=== PATIENT | female | born 1960 | race Caucasian/White ===

== ENCOUNTER 2017-09-02 11:53 | Inpatient (IN) | payer MEDICARE, MEDICAID, SELFPAY ==
[2017-09-02 12:13] VITALS: BMI 34.0
[2017-09-02 12:14] VITALS: BP 124/86; PULSE 96; RESP 20; TEMP 36.4; O2SAT 95
[2017-09-02 12:42] LABS: Basophils % 0.2 % (0.1-2.0); Eosinophils # 0.2 K/mm3 (0.0-0.4); Eosinophils % 1.3 % (0.1-12.0); Hematocrit 45.2 % (37.0-47.0); Hemoglobin 14.7 g/dL (12.2-16.2); Lymphocytes # 3.3 K/mm3 (0.7-4.5); Mean Corpuscular HGB Conc 32.5 g/dL (31.8-35.4); Mean Corpuscular Hemoglobin 30.2 pg (27.0-31.2); Mean Corpuscular Volume 93.1 fl (81-99); Mean Platelet Volume 8.3 fl (7.4-10.4); Monocytes # 0.5 K/mm3 (0.1-1.0); Neutrophils # 9.2 K/mm3 (1.8-7.8); Neutrophils % 69.5 % (37.0-80.0); Platelet Count 273 K/mm3 (142-424); Red Blood Count 4.85 M/mm3 (4.20-5.40); Red Cell Distribution Width 13.5 % (11.5-17.5); White Blood Count 13.2 K/mm3 (4.8-10.8)
[2017-09-02 12:53] LABS: Anion Gap 12.4 mEq/L (5-15); Blood Urea Nitrogen 13 mg/dL (7-18); Carbon Dioxide 27 mmol/L (21.0-32.0); Chloride 103 mmol/L (98-107); Creatinine Clearance Estimated 114 mL/min (0-300); Creatinine,Serum 0.82 mg/dL (0.55-1.02); Estimated Glomerular Filt Rate 72 ml/min (>60); GFR (African American) 88 ML/MIN (>60); Glucose 185 mg/dL (74-106); Potassium 4.4 mmoL/L (3.5-5.1); Sodium 138 mmol/L (136-145)
--- NOTE | 2017-09-02 13:28 | HMH.PHACONS ---
- Pharmacy Consult Date: 09/02/17 Time: 13:28 Referring provider: DR. MAYORGA Reason for Consult:: VANCOMYCIN DOSING FOR FACIAL ABSCESS Allergies and ADEs:: Allergies Allergy/AdvReac Type Severity Reaction Status Date / Time shellfish derived Allergy Severe SWELLING Unverified 06/29/17 15:16 [From SHELLFISH (FOOD/DRUG)] azithromycin [From ZITHROMAX] Allergy Unknown Unverified 06/29/17 15:16 doxycycline [DOXYCYCLINE] Allergy Unknown Unverified 06/29/17 15:16 ibuprofen [From MOTRIN] Allergy Unknown Unverified 06/29/17 15:16 terbutaline [TERBUTALINE] Allergy Unknown Unverified 06/29/17 15:16 From SHELLFISH (FOOD/DRUG) Allergy Severe SWELLING Uncoded 06/29/17 15:16 Home Medications:: Home Medications Medication Instructions Recorded Confirmed Type Gabapentin [Gabapentin 300mg Cap] 300 mg PO TID 09/02/17 09/02/17 History Height: 1.65 m Weight: 92.76 kg Laboratory Results:: Laboratory Results - last 24 hr 09/02/17 12:26: WBC 13.2 H, RBC 4.85, Hgb 14.7, Hct 45.2, MCV 93.1, MCH 30.2, MCHC 32.5, RDW 13.5, Plt Count 273, MPV 8.3, Neut % (Auto) 69.5, Lymph % (Auto) 25.0, [place] % (Auto) 4.0, Eos % (Auto) 1.3, Baso % (Auto) 0.2, Neut # (Auto) 9.2 H, Lymph # (Auto) 3.3, [place] # (Auto) 0.5, Eos # (Auto) 0.2, Baso # (Auto) 0.0 09/02/17 12:26: Sodium 138, Potassium 4.4, Chloride 103, Carbon Dioxide 27, Anion Gap 12.4, BUN 13, Creatinine 0.82, Estimated Creat Clear 114, Estimated GFR 72, Est GFR ( Amer) 88, Glucose 185 H Medical History: Reports:: Diabetes Mellitus Type 2 Denies:: Cancer, Diabetes Mellitus Type 1, MRSA Assessment and Plan - Assessment and plan all Dx Assessment and Plan for all problems:: BASED ON PATIENT'S FACTORS, RECOMMEND STARTING WITH VANCOMYCIN 1500 MG Q12H AT THIS TIME. PHARMACY WILL FOLLOW DAILY AND ADJUST APPROPRIATE. MONIKA PADILLA, PHARMD
--- NOTE | 2017-09-02 13:31 | HMH.PHAVTE ---
[facility] Pharmacy VTE Monitoring - Patient Demographics Admission date: 09/02/17 Report Date: 09/02/17 Time: 13:31 Allergies/Adverse Reactions: Patient Allergies shellfish derived [From SHELLFISH (FOOD/DRUG)] Allergy (Severe, Unverified 06/29/17 15:16) SWELLING azithromycin [From ZITHROMAX] Allergy (Unknown, Unverified 06/29/17 15:16) doxycycline [DOXYCYCLINE] Allergy (Unknown, Unverified 06/29/17 15:16) ibuprofen [From MOTRIN] Allergy (Unknown, Unverified 06/29/17 15:16) terbutaline [TERBUTALINE] Allergy (Unknown, Unverified 06/29/17 15:16) From SHELLFISH (FOOD/DRUG) Allergy (Severe, Uncoded 06/29/17 15:16) SWELLING Height: 1.65 m Weight: 92.76 kg - VTE Risk Labs: VTE Related Lab Results Hgb 14.7 g/dL (12.2-16.2) 09/02/17 12:26 Hct 45.2 % (37.0-47.0) 09/02/17 12:26 Plt Count 273 K/mm3 (142-424) 09/02/17 12:26 BUN 13 mg/dL (7-18) 09/02/17 12:26 Creatinine 0.82 mg/dL (0.55-1.02) 09/02/17 12:26 Estimated Creat Clear 114 mL/min (0-300) 09/02/17 12:26 Was VTE Risk Assessment Performed: Yes VTE Score: 4 VTE Risk Level: Low Risk - Prophylaxis VTE Prophylaxis Ordered?: Yes Types of VTE Prophylaxis: TEDS Knee High Location of Applied Device: Bilateral Lower Extremeties - VTE Diagnosis Confirmed Treatment or plan recommended: Continue Current Treatment
--- NOTE | 2017-09-02 13:33 | P.CONPHA_ITS ---
- Pharmacy Consult Date: 09/02/17 Time: 13:28 Referring provider: DR. MAYORGA Reason for Consult:: VANCOMYCIN DOSING FOR FACIAL ABSCESS Allergies and ADEs:: Allergies Allergy/AdvReac Type Severity Reaction Status Date / Time shellfish derived Allergy Severe SWELLING Unverified 06/29/17 15:16 [From SHELLFISH (FOOD/DRUG)] azithromycin [From ZITHROMAX] Allergy Unknown Unverified 06/29/17 15:16 doxycycline [DOXYCYCLINE] Allergy Unknown Unverified 06/29/17 15:16 ibuprofen [From MOTRIN] Allergy Unknown Unverified 06/29/17 15:16 terbutaline [TERBUTALINE] Allergy Unknown Unverified 06/29/17 15:16 From SHELLFISH (FOOD/DRUG) Allergy Severe SWELLING Uncoded 06/29/17 15:16 Home Medications:: Home Medications Medication Instructions Recorded Confirmed Type Gabapentin [Gabapentin 300mg Cap] 300 mg PO TID 09/02/17 09/02/17 History Height: 1.65 m Weight: 92.76 kg Laboratory Results:: Laboratory Results - last 24 hr 09/02/17 12:26: WBC 13.2 H, RBC 4.85, Hgb 14.7, Hct 45.2, MCV 93.1, MCH 30.2, MCHC 32.5, RDW 13.5, Plt Count 273, MPV 8.3, Neut % (Auto) 69.5, Lymph % (Auto) 25.0, [place] % (Auto) 4.0, Eos % (Auto) 1.3, Baso % (Auto) 0.2, Neut # (Auto) 9.2 H, Lymph # (Auto) 3.3, [place] # (Auto) 0.5, Eos # (Auto) 0.2, Baso # (Auto) 0.0 09/02/17 12:26: Sodium 138, Potassium 4.4, Chloride 103, Carbon Dioxide 27, Anion Gap 12.4, BUN 13, Creatinine 0.82, Estimated Creat Clear 114, Estimated GFR 72, Est GFR ( Amer) 88, Glucose 185 H Medical History: Reports:: Diabetes Mellitus Type 2 Denies:: Cancer, Diabetes Mellitus Type 1, MRSA Assessment and Plan - Assessment and plan all Dx Assessment and Plan for all problems:: BASED ON PATIENT'S FACTORS, RECOMMEND STARTING WITH VANCOMYCIN 1500 MG Q12H AT THIS TIME. PHARMACY WILL FOLLOW DAILY AND ADJUST APPROPRIATE. MONIKA PADILLA, PHARMD
--- NOTE | 2017-09-02 13:35 | CT_ITS ---
CT facial bones w con CLINICAL INDICATION: Facial cellulitis, evaluate for orbital abscess ITS.REASON: FACIAL ABCESS . ORBITAL ABCESS ORDERING PHYSICIAN: Matthew Ramesh MD PATIENT AGE: 56 years COMPARISON: Unenhanced neck CT of 02/08/2016 TECHNIQUE:Axial, sagittal, and coronal images are generated and reviewed with 75 mL's of Isovue-370 contrast FINDINGS: There is subcutaneous soft tissue swelling involving the right periorbital region with mild stranding of the fat inferiorly, laterally, and in the infraorbital area. No intraconal inflammation or abscess is evident. The globe and extraocular muscles and optic nerve have an unremarkable appearance. No facial abscess apparent. There is mild mucosal thickening of the ethmoid sinuses. No fracture or sinus air-fluid levels evident. There is a 15 mm retention cyst in the left maxillary sinus. Scattered small lymph nodes are present in the neck. No dominant adenopathy. No evidence of osteomyelitis. Incidental note is made of a mildly prominent draining vein in the right frontal area draining from the cortex to the intraventricular region between the lateral ventricles consistent with a venous angioma versus a small AVM. IMPRESSION: 1. Right periorbital cellulitis. No evidence of abscess. No evidence of orbital abscess. 2. Mildly prominent draining vein in the right frontal area suggesting an incidental venous angioma or small AVM
--- NOTE | 2017-09-02 14:47 | HMH.GSCON ---
*Admission Date: 09/02/17 *Chief complaint: facial abscess *History of present illness: facial abscess/cellulitis that started approx 1 week corner of right emily-orbital area Review of Systems - ENT Reports other Comments: abscess/cellulitis right periorbital area [facility] History Medical History: Reports:: Diabetes Mellitus Type 2 Denies:: Cancer, Diabetes Mellitus Type 1, MRSA Other Medical History: Reports: Arthritis, Hoarseness Laterality Cases: Right: ACL Repair, Bilateral: Tonsillectomy, Total Knee Replacement Other Surgeries: Yes: Hysterectomy-Total Amputation: No Fractures: No - *Social History Smoking Status: Current every day smoker Tobacco Type: cigarettes # Packs/Day (cigarettes): 1 Alcohol Intake: never Occupational Status: disabled Housing: house Household Members: children - Psychiatric History Expresses thoughts of harming self/others: None Suicide Plan Description: No Plan *Family Hx:: Anemia, Asthma, Bleeding Disorder, Cancer, Coronary Artery Disease, Diabetes, Hypertension, Kidney Disease, Stroke Meds Home Medications Medication Instructions Recorded Confirmed Type Aspirin [Aspir 81] 81 mg PO DAILY 09/02/17 09/02/17 History Citalopram Hydrobromide [Celexa] 20 mg PO DAILY 09/02/17 09/02/17 History Gabapentin [Gabapentin 300mg Cap] 300 mg PO TID 09/02/17 09/02/17 History Gabapentin [Gabapentin 300mg Cap] 300 mg PO TID 09/02/17 09/02/17 History Hydrocodone Bit/Homatrop Me-Br 1 each PO Q6 09/02/17 09/02/17 History [Hydrocodone-Homatropine 5-1.5] Insulin Degludec [Tresiba 86 unit SQ DAILY 09/02/17 09/02/17 History Flextouch U-100] Metformin HCl [Metformin 500mg 1,000 mg PO BID 09/02/17 09/02/17 History Tablet] Metoclopramide HCl [Metoclopramide 5 mg PO TID 09/02/17 09/02/17 History 10mg Tablet] Montelukast Sodium [Montelukast 10 mg PO HS 09/02/17 09/02/17 History 10mg Tab] Montelukast Sodium [Montelukast 10 mg PO HS 09/02/17 09/02/17 History 10mg Tab] Sulfamethoxazole/Trimethoprim 1 each PO BID 09/02/17 09/02/17 History [Bactrim DS tablet] Tiotropium [place] [Spiriva 18 mcg INHALATION DAILY 09/02/17 09/02/17 History 18mcg/puff inhaler] Trimethoprim 100 mg PO BID 09/02/17 History Allergies Allergy/AdvReac Type Severity Reaction Status Date / Time shellfish derived Allergy Severe SWELLING Unverified 06/29/17 15:16 [From SHELLFISH (FOOD/DRUG)] azithromycin [From ZITHROMAX] Allergy Unknown Unverified 06/29/17 15:16 doxycycline [DOXYCYCLINE] Allergy Unknown Unverified 06/29/17 15:16 ibuprofen [From MOTRIN] Allergy Unknown Unverified 06/29/17 15:16 terbutaline [TERBUTALINE] Allergy Unknown Unverified 06/29/17 15:16 From SHELLFISH (FOOD/DRUG) Allergy Severe SWELLING Uncoded 06/29/17 15:16 Exam Vital signs and Labs for Last 24 Hours: Temp Pulse Resp BP Pulse Ox 97.6 F 96 H 20 124/86 95 09/02/17 12:14 09/02/17 12:14 09/02/17 12:14 09/02/17 12:14 09/02/17 12:14 Laboratory Results - last 24 hr 09/02/17 12:26: WBC 13.2 H, RBC 4.85, Hgb 14.7, Hct 45.2, MCV 93.1, MCH 30.2, MCHC 32.5, RDW 13.5, Plt Count 273, MPV 8.3, Neut % (Auto) 69.5, Lymph % (Auto) 25.0, [place] % (Auto) 4.0, Eos % (Auto) 1.3, Baso % (Auto) 0.2, Neut # (Auto) 9.2 H, Lymph # (Auto) 3.3, [place] # (Auto) 0.5, Eos # (Auto) 0.2, Baso # (Auto) 0.0 09/02/17 12:26: Sodium 138, Potassium 4.4, Chloride 103, Carbon Dioxide 27, Anion Gap 12.4, BUN 13, Creatinine 0.82, Estimated Creat Clear 114, Estimated GFR 72, Est GFR ( Amer) 88, Glucose 185 H I & O for Last 24 hours: Intake & Output 08/30/17 08/31/17 09/01/17 09/02/17 23:59 23:59 23:59 23:59 Weight 204 lb 8.013 oz - *Routine HEENT Exam Eye: Present: periorbital swelling, periorbital tenderness Comments: This patient had a 1 week history of swelling in the lateral right periorbital region. She had been applying Epsom salts compresses to it but it was worsening and when I examined her on September 02, 2017 the area of
--- NOTE | 2017-09-02 14:50 | P.CONS_ITS ---
*Admission Date: 09/02/17 *Chief complaint: facial abscess *History of present illness: facial abscess/cellulitis that started approx 1 week corner of right emily- orbital area Review of Systems - ENT Reports other Comments: abscess/cellulitis right periorbital area [facility] History Medical History: Reports:: Diabetes Mellitus Type 2 Denies:: Cancer, Diabetes Mellitus Type 1, MRSA Other Medical History: Reports: Arthritis, Hoarseness Laterality Cases: Right: ACL Repair, Bilateral: Tonsillectomy, Total Knee Replacement Other Surgeries: Yes: Hysterectomy-Total Amputation: No Fractures: No - *Social History Smoking Status: Current every day smoker Tobacco Type: cigarettes # Packs/Day (cigarettes): 1 Alcohol Intake: never Occupational Status: disabled Housing: house Household Members: children - Psychiatric History Expresses thoughts of harming self/others: None Suicide Plan Description: No Plan *Family Hx:: Anemia, Asthma, Bleeding Disorder, Cancer, Coronary Artery Disease , Diabetes, Hypertension, Kidney Disease, Stroke Meds Home Medications Medication Instructions Recorded Confirmed Type Aspirin [Aspir 81] 81 mg PO DAILY 09/02/17 09/02/17 History Citalopram Hydrobromide [Celexa] 20 mg PO DAILY 09/02/17 09/02/17 History Gabapentin [Gabapentin 300mg Cap] 300 mg PO TID 09/02/17 09/02/17 History Gabapentin [Gabapentin 300mg Cap] 300 mg PO TID 09/02/17 09/02/17 History Hydrocodone Bit/Homatrop Me-Br 1 each PO Q6 09/02/17 09/02/17 History [Hydrocodone-Homatropine 5-1.5] Insulin Degludec [Tresiba 86 unit SQ DAILY 09/02/17 09/02/17 History Flextouch U-100] Metformin HCl [Metformin 500mg 1,000 mg PO BID 09/02/17 09/02/17 History Tablet] Metoclopramide HCl [Metoclopramide 5 mg PO TID 09/02/17 09/02/17 History 10mg Tablet] Montelukast Sodium [Montelukast 10 mg PO HS 09/02/17 09/02/17 History 10mg Tab] Montelukast Sodium [Montelukast 10 mg PO HS 09/02/17 09/02/17 History 10mg Tab] Sulfamethoxazole/Trimethoprim 1 each PO BID 09/02/17 09/02/17 History [Bactrim DS tablet] Tiotropium [place] [Spiriva 18 mcg INHALATION DAILY 09/02/17 09/02/17 History 18mcg/puff inhaler] Trimethoprim 100 mg PO BID 09/02/17 History Allergies Allergy/AdvReac Type Severity Reaction Status Date / Time shellfish derived Allergy Severe SWELLING Unverified 06/29/17 15:16 [From SHELLFISH (FOOD/DRUG)] azithromycin [From ZITHROMAX] Allergy Unknown Unverified 06/29/17 15:16 doxycycline [DOXYCYCLINE] Allergy Unknown Unverified 06/29/17 15:16 ibuprofen [From MOTRIN] Allergy Unknown Unverified 06/29/17 15:16 terbutaline [TERBUTALINE] Allergy Unknown Unverified 06/29/17 15:16 From SHELLFISH (FOOD/DRUG) Allergy Severe SWELLING Uncoded 06/29/17 15:16 Exam Vital signs and Labs for Last 24 Hours: Temp Pulse Resp BP Pulse Ox 97.6 F 96 H 20 124/86 95 09/02/17 12:14 09/02/17 12:14 09/02/17 12:14 09/02/17 12:14 09/02/17 12:14 Laboratory Results - last 24 hr 09/02/17 12:26: WBC 13.2 H, RBC 4.85, Hgb 14.7, Hct 45.2, MCV 93.1, MCH 30.2, MCHC 32.5, RDW 13.5, Plt Count 273, MPV 8.3, Neut % (Auto) 69.5, Lymph % (Auto) 25.0, [place] % (Auto) 4.0, Eos % (Auto) 1.3, Baso % (Auto) 0.2, Neut # (Auto) 9.2 H, Lymph # (Auto) 3.3, [place] # (Auto) 0.5, Eos # (Auto) 0.2, Baso # (Auto) 0.0 09/02/17 12:26: Sodium 138, Potassium
--- NOTE | 2017-09-02 16:36 | HMH.HP ---
*Admission Date: 09/02/17 *Chief complaint: Pain and swelling around right eye *History of present illness: 56-year-old female with controlled diabetes mellitus presented to the office for the second time this week for evaluation of a right periorbital abscess and cellulitis. Patient was initially seen on Wednesday of this week and had a small less than 1 cm abscess lateral to the right orbit with significant swelling of the upper and lower eyelid and erythema with tenderness. Patient was placed on antibiotics (Bactrim DS) and advised to use warm compresses. Patient followed up today as instructed and the abscess had grown, more than doubling in size with increased erythema. Swelling of the eyelids had improved compared to 72 hours prior but due to the increasing size of the abscess decision was made to admit the patient for IV antibiotics and surgical consultation. Since admission CT scan of the face has occurred which revealed the changes consistent with cellulitis in the abscess but no orbital cellulitis or abscess. [facility] History Medical History: Reports:: Anxiety, Chronic Obstructive Pulmonary Disease (COPD), Diabetes Mellitus Type 2 Denies:: Cancer, Diabetes Mellitus Type 1, MRSA Other Medical History: Reports: Arthritis, Hoarseness Laterality Cases: Right: ACL Repair, Bilateral: Tonsillectomy, Total Knee Replacement Other Surgeries: Yes: Hysterectomy-Total Amputation: No Fractures: No - *Social History Smoking Status: Current every day smoker Tobacco Type: cigarettes # Packs/Day (cigarettes): 1 Alcohol Intake: never Occupational Status: disabled Housing: house Household Members: children - Psychiatric History Expresses thoughts of harming self/others: None Suicide Plan Description: No Plan *Family Hx:: Anemia, Asthma, Bleeding Disorder, Cancer, Coronary Artery Disease, Diabetes, Hypertension, Kidney Disease, Stroke Review of Systems - Review of Systems Review of systems:: pertinent systems reviewed and negative unless documented below - Constitutional Denies body ache(s), Denies chills, Denies fever(s) - Eyes Denies blind spots, Denies change in vision, Denies double vision Meds Home Medications Medication Instructions Recorded Confirmed Type Aspirin [Aspir 81] 81 mg PO DAILY 09/02/17 09/02/17 History Citalopram Hydrobromide [Celexa] 20 mg PO DAILY 09/02/17 09/02/17 History Gabapentin [Gabapentin 300mg Cap] 300 mg PO TID 09/02/17 09/02/17 History Gabapentin [Gabapentin 300mg Cap] 300 mg PO TID 09/02/17 09/02/17 History Hydrocodone Bit/Homatrop Me-Br 1 each PO Q6 09/02/17 09/02/17 History [Hydrocodone-Homatropine 5-1.5] Insulin Degludec [Tresiba 86 unit SQ DAILY 09/02/17 09/02/17 History Flextouch U-100] Metformin HCl [Metformin 500mg 1,000 mg PO BID 09/02/17 09/02/17 History Tablet] Metoclopramide HCl [Metoclopramide 5 mg PO TID 09/02/17 09/02/17 History 10mg Tablet] Montelukast Sodium [Montelukast 10 mg PO HS 09/02/17 09/02/17 History 10mg Tab] Montelukast Sodium [Montelukast 10 mg PO HS 09/02/17 09/02/17 History 10mg Tab] Sulfamethoxazole/Trimethoprim 1 each PO BID 09/02/17 09/02/17 History [Bactrim DS tablet] Tiotropium [place] [Spiriva 18 mcg INHALATION DAILY 09/02/17 09/02/17 History 18mcg/puff inhaler] Trimethoprim 100 mg PO BID 09/02/17 History Allergies Allergy/AdvReac Type Severity Reaction Status Date / Time shellfish derived Allergy Severe SWELLING Unverified 06/29/17 15:16 [From SHELLFISH (FOOD/DRUG)] azithromycin [From ZITHROMAX] Allergy Unknown Unverified 06/29/17 15:16 doxycycline [DOXYCYCLINE] Allergy Unknown Unverified 06/29/17 15:16 ibuprofen [From MOTRIN] Allergy Unknown Unverified 06/29/17 15:16 terbutaline [TERBUTALINE] Allergy Unknown Unverified 06/29/17 15:16 From SHELLFISH (FOOD/DRUG) Allergy Severe SWELLING Uncoded 06/29/17 15:16 Exam Vital signs and Labs for Last 24 Hours: Temp Pulse Resp BP Pulse Ox 97.6 F 96 H 20 124/86 95
--- NOTE | 2017-09-02 16:39 | P.HP_ITS ---
*Admission Date: 09/02/17 *Chief complaint: Pain and swelling around right eye *History of present illness: 56-year-old female with controlled diabetes mellitus presented to the office for the second time this week for evaluation of a right periorbital abscess and cellulitis. Patient was initially seen on Wednesday of this week and had a small less than 1 cm abscess lateral to the right orbit with significant swelling of the upper and lower eyelid and erythema with tenderness. Patient was placed on antibiotics (Bactrim DS) and advised to use warm compresses. Patient followed up today as instructed and the abscess had grown, more than doubling in size with increased erythema. Swelling of the eyelids had improved compared to 72 hours prior but due to the increasing size of the abscess decision was made to admit the patient for IV antibiotics and surgical consultation. Since admission CT scan of the face has occurred which revealed the changes consistent with cellulitis in the abscess but no orbital cellulitis or abscess. [facility] History Medical History: Reports:: Anxiety, Chronic Obstructive Pulmonary Disease (COPD) , Diabetes Mellitus Type 2 Denies:: Cancer, Diabetes Mellitus Type 1, MRSA Other Medical History: Reports: Arthritis, Hoarseness Laterality Cases: Right: ACL Repair, Bilateral: Tonsillectomy, Total Knee Replacement Other Surgeries: Yes: Hysterectomy-Total Amputation: No Fractures: No - *Social History Smoking Status: Current every day smoker Tobacco Type: cigarettes # Packs/Day (cigarettes): 1 Alcohol Intake: never Occupational Status: disabled Housing: house Household Members: children - Psychiatric History Expresses thoughts of harming self/others: None Suicide Plan Description: No Plan *Family Hx:: Anemia, Asthma, Bleeding Disorder, Cancer, Coronary Artery Disease , Diabetes, Hypertension, Kidney Disease, Stroke Review of Systems - Review of Systems Review of systems:: pertinent systems reviewed and negative unless documented below - Constitutional Denies body ache(s), Denies chills, Denies fever(s) - Eyes Denies blind spots, Denies change in vision, Denies double vision Meds Home Medications Medication Instructions Recorded Confirmed Type Aspirin [Aspir 81] 81 mg PO DAILY 09/02/17 09/02/17 History Citalopram Hydrobromide [Celexa] 20 mg PO DAILY 09/02/17 09/02/17 History Gabapentin [Gabapentin 300mg Cap] 300 mg PO TID 09/02/17 09/02/17 History Gabapentin [Gabapentin 300mg Cap] 300 mg PO TID 09/02/17 09/02/17 History Hydrocodone Bit/Homatrop Me-Br 1 each PO Q6 09/02/17 09/02/17 History [Hydrocodone-Homatropine 5-1.5] Insulin Degludec [Tresiba 86 unit SQ DAILY 09/02/17 09/02/17 History Flextouch U-100] Metformin HCl [Metformin 500mg 1,000 mg PO BID 09/02/17 09/02/17 History Tablet] Metoclopramide HCl [Metoclopramide 5 mg PO TID 09/02/17 09/02/17 History 10mg Tablet] Montelukast Sodium [Montelukast 10 mg PO HS 09/02/17 09/02/17 History 10mg Tab] Montelukast Sodium [Montelukast 10 mg PO HS 09/02/17 09/02/17 History 10mg Tab] Sulfamethoxazole/Trimethoprim 1 each PO BID 09/02/17 09/02/17 History [Bactrim DS tablet] Tiotropium [place] [Spiriva 18 mcg INHALATION DAILY 09/02/17 09/02/17 History 18mcg/puff inhaler] Trimethoprim 100 mg PO BID 09/02/17 History Allergies Allergy/AdvReac Type Severity Reaction Status Date / Time shellfish derived Allergy Severe SWELLING Unverified 06/29/17 15:16
[2017-09-02 16:44] LABS: POC Glucose,Bedside 82 mg/dL (70-110)
--- NOTE | 2017-09-02 17:11 | PC.NURSE ---
PATIENT WAS ADMITTED TODAY FOR AN ABCESS TO THE RIGHT SIDE OF HER FACE AT THE OUTER CORNER OF HER RIGHT EYE. IT IS RED AND SWOLLEN AND PATIENT STATES VERY PAINFUL ( PAIN MEDS GIVEN). PATIENT HAD A CONSULT WITH , HE ORDERED WARM EPSON SALT COMPRESSES TID. PATIENT IS TO BE NPO AFTER MIDNIGHT FOR POSSIBLE SURGERY IN THE MORNING. VITAL SIGNS ARE STABLE, LUNG SOUNDS ARE CLEAR. PATIENT DENIES ANY NEEDS, NO DISTRESS NOTED, WILL CONTINUE TO MONITOR.
--- NOTE | 2017-09-02 19:10 | PC.NURSE ---
PT FULL CODE, REPORT FROM JET
[2017-09-02 20:00] VITALS: BP 105/43; PULSE 71; RESP 20; TEMP 36.7; O2SAT 99
[2017-09-02 21:15] VITALS: RESP 20; O2SAT 95
[2017-09-03] VITALS (22 sets, daily range): BP systolic 126–158; BP diastolic 42–84; PULSE 65–96; RESP 12–20; TEMP 36.1–36.8; O2SAT 92–99; BMI 34.0
--- NOTE | 2017-09-03 00:48 | PC.NURSE ---
PT SLEEPING INTERVALS. NPO FOR PROBABLE SURGERY TODAY. IV SECURE, SALINE LOCKED. NO C/O PAIN OR DISCOMFORT. PT STABLE. WILL CONTINUE TO MONITOR. REPORT TO ONCOMING NURSE.
[2017-09-03 06:21] LABS: POC Glucose,Bedside 88 mg/dL (70-110)
--- NOTE | 2017-09-03 07:05 | HMH.ACPN2 ---
Internal Medicine - PN: Subj *Date: 09/03/17 *Time: 07:05 Interval history: Patient is without complaints this morning. She did fairly well overnight. She continues to have some right-sided periorbital discomfort. Exam Vital signs and Labs for Last 24 Hours: Temp Pulse Resp BP Pulse Ox 97.9 F 69 18 128/71 96 09/03/17 03:33 09/03/17 03:33 09/03/17 03:33 09/03/17 03:33 09/03/17 03:33 Laboratory Results - last 24 hr 09/02/17 12:26: WBC 13.2 H, RBC 4.85, Hgb 14.7, Hct 45.2, MCV 93.1, MCH 30.2, MCHC 32.5, RDW 13.5, Plt Count 273, MPV 8.3, Neut % (Auto) 69.5, Lymph % (Auto) 25.0, [place] % (Auto) 4.0, Eos % (Auto) 1.3, Baso % (Auto) 0.2, Neut # (Auto) 9.2 H, Lymph # (Auto) 3.3, [place] # (Auto) 0.5, Eos # (Auto) 0.2, Baso # (Auto) 0.0 09/02/17 12:26: Sodium 138, Potassium 4.4, Chloride 103, Carbon Dioxide 27, Anion Gap 12.4, BUN 13, Creatinine 0.82, Estimated Creat Clear 114, Estimated GFR 72, Est GFR ( Amer) 88, Glucose 185 H 09/02/17 16:31: POC Glucose 82 09/03/17 06:07: POC Glucose 88 I & O for Last 24 hours: Intake & Output 08/31/17 09/01/17 09/02/17 09/03/17 11:59 11:59 11:59 11:59 Intake Total 780 / 780 Balance 780 / 780 Weight 204 lb 8.013 oz Narrative: Patient has swelling of the upper and lower eyelid on the right without any significant change in size of the abscess lateral to the right orbit. She has mild tenderness along the cheek without erythema. Assessment and Plan (1) Acute abscess of face Current visit: Yes Status: Acute Category: Medical Code(s): L02.01 - Cutaneous abscess of face (2) Periorbital cellulitis of right eye Current visit: Yes Status: Acute Category: Medical Code(s): L03.213 - Periorbital cellulitis - Assessment and plan all Dx Assessment and Plan for all problems:: Abscesses unchanged after Epsom salt compresses and antibiotics. Await Dr. Yung's evaluation this morning but she will likely need I&D of this abscess
--- NOTE | 2017-09-03 07:14 | PC.NURSE ---
REPORT GIVEN TO Char MAGALLANES W/C
--- NOTE | 2017-09-03 07:39 | PC.NURSE ---
REPORT GIVEN TO RAYMOND COX.
--- NOTE | 2017-09-03 08:53 | P.PN_ITS ---
[facility] [place] Anesthesia Checklist - Patient Identification Patient Identification: Arm Band - Structural Data Admitted From: Home Planned Operative Procedure/s: I&D right periorbital abcess Consent for Planned Operative Procedure(s) Verified: Yes Verified Documents: Surgical Consent, History and Physical - NPO Status Verified Time NPO: 00:00 - Additional verifications Anesthesia Reactions: No - Airway Assessment C-Spine Mobility Assessed: Yes TMJ Mobility Assessed: Yes Dentition: Edentulous - Neurological Assessment Level of Consciousness: Awake, Alert - Anesthesia Plan Anesthesia Risk discussed: Yes Anesthesia Plan: Verified ASA Class: III Anesthesia Type: General [facility] [place] Anesthesia HX I have reviewed the patient's past medical history: Yes Medical History: Reports:: Anxiety, Chronic Obstructive Pulmonary Disease (COPD) , Diabetes Mellitus Type 2, Gastroesophageal Reflux Disease(GERD) Denies:: Cancer, Diabetes Mellitus Type 1, MRSA Other Medical History: Reports: Arthritis, Hoarseness Laterality Cases: Right: ACL Repair, Bilateral: Tonsillectomy, Total Knee Replacement Other Surgeries: Yes: Dilation and Curettage, Hysterectomy-Total Amputation: No Fractures: No *Family Hx:: Anemia, Asthma, Bleeding Disorder, Cancer, Coronary Artery Disease , Diabetes, Hypertension, Kidney Disease, Stroke
--- NOTE | 2017-09-03 09:58 | P.PN_ITS ---
[facility] Anesthesia Record Part I Intake, IV Amount: 600 Estimated blood loss (mL): 0 Urine output (mL): 0 Blood Pressure: 142/84 SaO2: 92 Pulse Rate: 77 Respiratory Rate: 12 Temperature: 97.9 F Patient is:: Awake, Stable Stable to PACU at:: 09:55
--- NOTE | 2017-09-03 09:58 | HMH.ANESII ---
[facility] Anesthesia Record Part II Discharge Time: 10:25 Destination: floor PACU nurse assessment reviewed?: Yes Patient Condition:: Good Anesthesia Complications:: None
[2017-09-03 14:51] LABS: Vancomycin,Trough 12.6 mcg/ml (10.0-20.0)
--- NOTE | 2017-09-03 15:22 | HMH.PHACONS ---
- Pharmacy Consult Date: 09/03/17 Time: 15: Referring provider: DR. MAYORGA Reason for Consult:: VANCOMYCIN TROUGH LEVEL Allergies and ADEs:: Allergies Allergy/AdvReac Type Severity Reaction Status Date / Time shellfish derived Allergy Severe SWELLING Unverified 06/29/17 15:16 [From SHELLFISH (FOOD/DRUG)] azithromycin [From ZITHROMAX] Allergy Unknown Unverified 06/29/17 15:16 doxycycline [DOXYCYCLINE] Allergy Unknown Unverified 06/29/17 15:16 ibuprofen [From MOTRIN] Allergy Unknown Unverified 06/29/17 15:16 terbutaline [TERBUTALINE] Allergy Unknown Unverified 06/29/17 15:16 From SHELLFISH (FOOD/DRUG) Allergy Severe SWELLING Uncoded 06/29/17 15:16 Home Medications:: Home Medications Medication Instructions Recorded Confirmed Type Aspirin [Aspir 81] 81 mg PO DAILY 09/02/17 09/02/17 History Citalopram Hydrobromide [Celexa] 20 mg PO DAILY 09/02/17 09/02/17 History Gabapentin [Gabapentin 300mg Cap] 300 mg PO TID 09/02/17 09/02/17 History Gabapentin [Gabapentin 300mg Cap] 300 mg PO TID 09/02/17 09/02/17 History Insulin Degludec [Tresiba 86 unit SQ DAILY 09/02/17 09/02/17 History Flextouch U-100] Metformin HCl [Metformin 500mg 1,000 mg PO BID 09/02/17 09/02/17 History Tablet] Metoclopramide HCl [Metoclopramide 5 mg PO TID 09/02/17 09/02/17 History 10mg Tablet] Montelukast Sodium [Montelukast 10 mg PO HS 09/02/17 09/02/17 History 10mg Tab] Montelukast Sodium [Montelukast 10 mg PO HS 09/02/17 09/02/17 History 10mg Tab] Sulfamethoxazole/Trimethoprim 1 each PO BID 09/02/17 09/02/17 History [Bactrim DS tablet] Tiotropium [place] [Spiriva 1 puff INHALATION DAILY 09/02/17 09/03/17 History 18mcg/puff inhaler] Hydrocodone Bit/Homatrop Me-Br 1 each PO Q6HP PRN 09/03/17 09/03/17 History [Hydocan 5mg tablet] Hydrocodone/Acetaminophen 1 each PO QID 09/03/17 09/03/17 History [Hydrocodone-Acetamin 10-325 mg] Height: 1.65 m Weight: 92.76 kg Laboratory Results:: Laboratory Results - last 24 hr 09/02/17 16:31: POC Glucose 82 09/03/17 06:07: POC Glucose 88 09/03/17 14:30: Vancomycin Trough 12.6 Medical History: Reports:: Anxiety, Chronic Obstructive Pulmonary Disease (COPD), Diabetes Mellitus Type 2, Gastroesophageal Reflux Disease(GERD) Denies:: Cancer, Diabetes Mellitus Type 1, MRSA Assessment and Plan (1) Acute abscess of face Current visit: Yes Status: Acute Category: Medical Code(s): L02.01 - Cutaneous abscess of face (2) Periorbital cellulitis of right eye Current visit: Yes Status: Acute Category: Medical Code(s): L03.213 - Periorbital cellulitis - Assessment and plan all Dx Assessment and Plan for all problems:: BASED ON PATIENT'S VANCOMYCIN TROUGH LEVEL OF 12.6 MCG/ML TODAY, RECOMMEND CONTINUING VANCOMYCIN 1500 MG Q12H AT THIS TIME. PHARMACY WILL FOLLOW DAILY AND ADJUST APPROPRIATE. MONIKA PADILLA, ALFREDD
--- NOTE | 2017-09-03 15:27 | PC.NURSE ---
left anterior expiratory wheezes heard, right anterior clear
--- NOTE | 2017-09-03 17:26 | HMH.DCSUM ---
General - General Admission date: 09/02/17 Discharge date: 09/04/17 HPI HPI: 56-year-old female with controlled diabetes mellitus presented to the office for the second time this week for evaluation of a right periorbital abscess and cellulitis. Patient was initially seen on Wednesday of this week and had a small less than 1 cm abscess lateral to the right orbit with significant swelling of the upper and lower eyelid and erythema with tenderness. Patient was placed on antibiotics (Bactrim DS) and advised to use warm compresses. Patient followed up today as instructed and the abscess had grown, more than doubling in size with increased erythema. Swelling of the eyelids had improved compared to 72 hours prior but due to the increasing size of the abscess decision was made to admit the patient for IV antibiotics and surgical consultation. Since admission CT scan of the face has occurred which revealed the changes consistent with cellulitis in the abscess but no orbital cellulitis or abscess. Objective Vital signs: Temp Pulse Resp BP Pulse Ox 98.0 F 74 16 130/72 98 09/03/17 16:15 09/03/17 16:15 09/03/17 16:15 09/03/17 16:15 09/03/17 16:15 Hospital Course Hospital Course: Patient was admitted and placed on Vancomycin and warm Epsom salt compresses were applied to the abscess. Dr. Yung was consulted. When the abscess did not improve patient was taken to the OR on 09/03 and abscess was I&D. Swelling aroudn the abscess and eye improved postoperatively. Patient was continued on Vancomycin overnight on 09/03. The following morning on September 04 patient's facial swelling had improved as had the size of the abscess after incision and drainage. Patient was discharged home. She will continue Bactrim. She will follow-up in the office in 2-3 days Results Labs on day of discharge: Labs from last 24 hours 09/03/17 09/03/17 14:30 06:07 POC Glucose 88 Vancomycin Trough 12.6 DS: Diagnosis - Discharge Diagnosis (1) Acute abscess of face Status: Acute (2) Periorbital cellulitis of right eye Status: Acute Discharge Plan - Patient Discharge Instructions ACTIVITY: Continue current activity DIET: continue same diet Patient Instructions: DI for Orbital Cellulitis, DI for Incision and Drainage of a Skin Abscess - Follow up Plan Follow up with: Matthew Ramesh MD [Primary Care Provider] - Disposition: Home, Self-Residential Medications: Home Medications Medication Instructions Recorded Confirmed Type Aspirin [Aspir 81] 81 mg PO DAILY 09/02/17 09/02/17 History Citalopram Hydrobromide [Celexa] 20 mg PO DAILY 09/02/17 09/02/17 History Gabapentin [Gabapentin 300mg Cap] 300 mg PO TID 09/02/17 09/02/17 History Gabapentin [Gabapentin 300mg Cap] 300 mg PO TID 09/02/17 09/02/17 History Insulin Degludec [Tresiba 86 unit SQ DAILY 09/02/17 09/02/17 History Flextouch U-100] Metformin HCl [Metformin 500mg 1,000 mg PO BID 09/02/17 09/02/17 History Tablet] Metoclopramide HCl [Metoclopramide 5 mg PO TID 09/02/17 09/02/17 History 10mg Tablet] Montelukast Sodium [Montelukast 10 mg PO HS 09/02/17 09/02/17 History 10mg Tab] Montelukast Sodium [Montelukast 10 mg PO HS 09/02/17 09/02/17 History 10mg Tab] Sulfamethoxazole/Trimethoprim 1 each PO BID 09/02/17 09/02/17 History [Bactrim DS tablet] Tiotropium [place] [Spiriva 1 puff INHALATION DAILY 09/02/17 09/03/17 History 18mcg/puff inhaler] Hydrocodone Bit/Homatrop Me-Br 1 each PO Q6HP PRN 09/03/17 09/03/17 History [Hydocan 5mg tablet] Hydrocodone/Acetaminophen 1 each PO QID 09/03/17 09/03/17 History [Hydrocodone-Acetamin 10-325 mg] Prescriptions/Medication Reconciliation: Continue Sulfamethoxazole/Trimethoprim [Bactrim DS tablet] 1 each PO BID Tiotropium [place] [Spiriva 18mcg/puff inhaler] 1 puff INHALATION DAILY Montelukast Sodium [Montelukast 10mg Tab] 10 mg PO HS Gabapentin [Gabapentin 300mg Cap] 300
--- NOTE | 2017-09-03 17:30 | HMH.GSCON ---
*Admission Date: 09/02/17 *Chief complaint: right emily-orbital abscess 3.5cm *History of present illness: 56-year-old female with controlled diabetes mellitus presented to the office for the second time this week for evaluation of a right periorbital abscess and cellulitis. Patient was initially seen on Wednesday of this week and had a small less than 1 cm abscess lateral to the right orbit with significant swelling of the upper and lower eyelid and erythema with tenderness. Patient was placed on antibiotics (Bactrim DS) and advised to use warm compresses. Patient followed up today as instructed and the abscess had grown, more than doubling in size with increased erythema. Swelling of the eyelids had improved compared to 72 hours prior but due to the increasing size of the abscess decision was made to admit the patient for IV antibiotics and surgical consultation. Since admission CT scan of the face has occurred which revealed the changes consistent with cellulitis in the abscess but no orbital cellulitis or abscess. Review of Systems - ENT Comments: emily-orbital abscess [facility] History Medical History: Reports:: Anxiety, Chronic Obstructive Pulmonary Disease (COPD), Diabetes Mellitus Type 2, Gastroesophageal Reflux Disease(GERD) Denies:: Cancer, Diabetes Mellitus Type 1, MRSA Other Medical History: Reports: Arthritis, Hoarseness Laterality Cases: Right: ACL Repair, Bilateral: Tonsillectomy, Total Knee Replacement Other Surgeries: Yes: Dilation and Curettage, Hysterectomy-Total Amputation: No Fractures: No - *Social History Smoking Status: Current every day smoker Tobacco Type: cigarettes # Packs/Day (cigarettes): 1 Alcohol Intake: never Occupational Status: disabled Housing: house Household Members: children - Psychiatric History Expresses thoughts of harming self/others: None Suicide Plan Description: No Plan Pschychiatric History:: Reports:: Anxiety *Family Hx:: Anemia, Asthma, Bleeding Disorder, Cancer, Coronary Artery Disease, Diabetes, Hypertension, Kidney Disease, Stroke Meds Home Medications Medication Instructions Recorded Confirmed Type Aspirin [Aspir 81] 81 mg PO DAILY 09/02/17 09/02/17 History Citalopram Hydrobromide [Celexa] 20 mg PO DAILY 09/02/17 09/02/17 History Gabapentin [Gabapentin 300mg Cap] 300 mg PO TID 09/02/17 09/02/17 History Gabapentin [Gabapentin 300mg Cap] 300 mg PO TID 09/02/17 09/02/17 History Insulin Degludec [Tresiba 86 unit SQ DAILY 09/02/17 09/02/17 History Flextouch U-100] Metformin HCl [Metformin 500mg 1,000 mg PO BID 09/02/17 09/02/17 History Tablet] Metoclopramide HCl [Metoclopramide 5 mg PO TID 09/02/17 09/02/17 History 10mg Tablet] Montelukast Sodium [Montelukast 10 mg PO HS 09/02/17 09/02/17 History 10mg Tab] Montelukast Sodium [Montelukast 10 mg PO HS 09/02/17 09/02/17 History 10mg Tab] Sulfamethoxazole/Trimethoprim 1 each PO BID 09/02/17 09/02/17 History [Bactrim DS tablet] Tiotropium [place] [Spiriva 1 puff INHALATION DAILY 09/02/17 09/03/17 History 18mcg/puff inhaler] Hydrocodone Bit/Homatrop Me-Br 1 each PO Q6HP PRN 09/03/17 09/03/17 History [Hydocan 5mg tablet] Hydrocodone/Acetaminophen 1 each PO QID 09/03/17 09/03/17 History [Hydrocodone-Acetamin 10-325 mg] Allergies Allergy/AdvReac Type Severity Reaction Status Date / Time shellfish derived Allergy Severe SWELLING Unverified 06/29/17 15:16 [From SHELLFISH (FOOD/DRUG)] azithromycin [From ZITHROMAX] Allergy Unknown Unverified 06/29/17 15:16 doxycycline [DOXYCYCLINE] Allergy Unknown Unverified 06/29/17 15:16 ibuprofen [From MOTRIN] Allergy Unknown Unverified 06/29/17 15:16 terbutaline [TERBUTALINE] Allergy Unknown Unverified 06/29/17 15:16 From SHELLFISH (FOOD/DRUG) Allergy Severe SWELLING Uncoded 06/29/17 15:16 Exam Vital signs and Labs for Last 24 Hours: Temp Pulse Resp BP Pulse Ox 98.0 F 74 16 130/72 98 09/03/17 16:15 09/03/17 16:15 09/03/17 16:15 09/03/17
--- NOTE | 2017-09-03 17:31 | P.DS_ITS ---
General - General Admission date: 09/02/17 Discharge date: 09/04/17 HPI HPI: 56-year-old female with controlled diabetes mellitus presented to the office for the second time this week for evaluation of a right periorbital abscess and cellulitis. Patient was initially seen on Wednesday of this week and had a small less than 1 cm abscess lateral to the right orbit with significant swelling of the upper and lower eyelid and erythema with tenderness. Patient was placed on antibiotics (Bactrim DS) and advised to use warm compresses. Patient followed up today as instructed and the abscess had grown, more than doubling in size with increased erythema. Swelling of the eyelids had improved compared to 72 hours prior but due to the increasing size of the abscess decision was made to admit the patient for IV antibiotics and surgical consultation. Since admission CT scan of the face has occurred which revealed the changes consistent with cellulitis in the abscess but no orbital cellulitis or abscess. Objective Vital signs: Temp Pulse Resp BP Pulse Ox 98.0 F 74 16 130/72 98 09/03/17 16:15 09/03/17 16:15 09/03/17 16:15 09/03/17 16:15 09/03/17 16:15 Hospital Course Hospital Course: Patient was admitted and placed on Vancomycin and warm Epsom salt compresses were applied to the abscess. Dr. Yung was consulted. When the abscess did not improve patient was taken to the OR on 09/03 and abscess was I&D. Swelling aroudn the abscess and eye improved postoperatively. Patient was continued on Vancomycin overnight on 09/03. The following morning on September 04 patient's facial swelling had improved as had the size of the abscess after incision and drainage. Patient was discharged home. She will continue Bactrim. She will follow-up in the office in 2-3 days Results Labs on day of discharge: Labs from last 24 hours 09/03/17 09/03/17 14:30 06:07 POC Glucose 88 Vancomycin Trough 12.6 DS: Diagnosis - Discharge Diagnosis (1) Acute abscess of face Status: Acute (2) Periorbital cellulitis of right eye Status: Acute Discharge Plan - Patient Discharge Instructions ACTIVITY: Continue current activity DIET: continue same diet Patient Instructions: DI for Orbital Cellulitis, DI for Incision and Drainage of a Skin Abscess - Follow up Plan Follow up with: Matthew Ramesh MD [Primary Care Provider] - Disposition: Home, Self-[facility] Medications: Home Medications Medication Instructions Recorded Confirmed Type Aspirin [Aspir 81] 81 mg PO DAILY 09/02/17 09/02/17 History Citalopram Hydrobromide [Celexa] 20 mg PO DAILY 09/02/17 09/02/17 History Gabapentin [Gabapentin 300mg Cap] 300 mg PO TID 09/02/17 09/02/17 History Gabapentin [Gabapentin 300mg Cap] 300 mg PO TID 09/02/17 09/02/17 History Insulin Degludec [Tresiba 86 unit SQ DAILY 09/02/17 09/02/17 History Flextouch U-100] Metformin HCl [Metformin 500mg 1,000 mg PO BID 09/02/17 09/02/17 History Tablet] Metoclopramide HCl [Metoclopramide 5 mg PO TID 09/02/17 09/02/17 History 10mg Tablet] Montelukast Sodium [Montelukast 10 mg PO HS 09/02/17 09/02/17 History 10mg Tab] Montelukast Sodium [Montelukast 10 mg PO HS 09/02/17 09/02/17 History 10mg Tab] Sulfamethoxazole/Trimethoprim 1 each PO BID 09/02/17 09/02/17 History [Bactrim DS tablet] Tiotropium [place] [Spiriv
--- NOTE | 2017-09-03 17:34 | P.CONS_ITS ---
*Admission Date: 09/02/17 *Chief complaint: right emily-orbital abscess 3.5cm *History of present illness: 56-year-old female with controlled diabetes mellitus presented to the office for the second time this week for evaluation of a right periorbital abscess and cellulitis. Patient was initially seen on Wednesday of this week and had a small less than 1 cm abscess lateral to the right orbit with significant swelling of the upper and lower eyelid and erythema with tenderness. Patient was placed on antibiotics (Bactrim DS) and advised to use warm compresses. Patient followed up today as instructed and the abscess had grown, more than doubling in size with increased erythema. Swelling of the eyelids had improved compared to 72 hours prior but due to the increasing size of the abscess decision was made to admit the patient for IV antibiotics and surgical consultation. Since admission CT scan of the face has occurred which revealed the changes consistent with cellulitis in the abscess but no orbital cellulitis or abscess. Review of Systems - ENT Comments: emily-orbital abscess [facility] History Medical History: Reports:: Anxiety, Chronic Obstructive Pulmonary Disease (COPD) , Diabetes Mellitus Type 2, Gastroesophageal Reflux Disease(GERD) Denies:: Cancer, Diabetes Mellitus Type 1, MRSA Other Medical History: Reports: Arthritis, Hoarseness Laterality Cases: Right: ACL Repair, Bilateral: Tonsillectomy, Total Knee Replacement Other Surgeries: Yes: Dilation and Curettage, Hysterectomy-Total Amputation: No Fractures: No - *Social History Smoking Status: Current every day smoker Tobacco Type: cigarettes # Packs/Day (cigarettes): 1 Alcohol Intake: never Occupational Status: disabled Housing: house Household Members: children - Psychiatric History Expresses thoughts of harming self/others: None Suicide Plan Description: No Plan Pschychiatric History:: Reports:: Anxiety *Family Hx:: Anemia, Asthma, Bleeding Disorder, Cancer, Coronary Artery Disease , Diabetes, Hypertension, Kidney Disease, Stroke Meds Home Medications Medication Instructions Recorded Confirmed Type Aspirin [Aspir 81] 81 mg PO DAILY 09/02/17 09/02/17 History Citalopram Hydrobromide [Celexa] 20 mg PO DAILY 09/02/17 09/02/17 History Gabapentin [Gabapentin 300mg Cap] 300 mg PO TID 09/02/17 09/02/17 History Gabapentin [Gabapentin 300mg Cap] 300 mg PO TID 09/02/17 09/02/17 History Insulin Degludec [Tresiba 86 unit SQ DAILY 09/02/17 09/02/17 History Flextouch U-100] Metformin HCl [Metformin 500mg 1,000 mg PO BID 09/02/17 09/02/17 History Tablet] Metoclopramide HCl [Metoclopramide 5 mg PO TID 09/02/17 09/02/17 History 10mg Tablet] Montelukast Sodium [Montelukast 10 mg PO HS 09/02/17 09/02/17 History 10mg Tab] Montelukast Sodium [Montelukast 10 mg PO HS 09/02/17 09/02/17 History 10mg Tab] Sulfamethoxazole/Trimethoprim 1 each PO BID 09/02/17 09/02/17 History [Bactrim DS tablet] Tiotropium [place] [Spiriva 1 puff INHALATION DAILY 09/02/17 09/03/17 History 18mcg/puff inhaler] Hydrocodone Bit/Homatrop Me-Br 1 each PO Q6HP PRN 09/03/17 09/03/17 History [Hydocan 5mg tablet] Hydrocodone/Acetaminophen 1 each PO QID 09/03/17 09/03/17 History [Hydrocodone-Acetamin 10-325 mg] Allergies Allergy/AdvReac Type Severity Reaction Status Date / Time shellfish derived Allergy Severe SWELLING Unverified 06/29/17 15:16 [From SHELLFISH (FOOD/DRUG)] azithromycin [
--- NOTE | 2017-09-03 17:34 | HMH.OPNOTE ---
Date of procedure: 09/03/17 Pre-op Diagnosis:: Right periorbital abscess Post-op diagnosis:: same Procedure performed:: Drainage of right periorbital abscess general anesthetic Surgeon:: Kevin Yung MD QA ARCHITECT:: Ilia Hopkins Anesthesia: GETA Estimated blood loss (mL): 10 Operative findings:: same as above Operative note:: With the patient under general anesthesia the face was prepped and draped. The eyes were protected with Steri-Strips. An incision was made over the epi center of the abscess in the right periorbital area. And necrotic tissue over around the epicentered was debrided. Using a mosquito forceps the abscess cavity was opened. It extended for about 4 cm. Considerable pus was evacuated, cultures were taken for C&S and anaerobes, and submitted. The area was then thoroughly cleansed with Hibiclens. Bleeding was stopped with bipolar cautery. Blood Loss was less than 10 cc. Bacitracin was applied. A dressing was applied and the patient was sent to recovery in improved general condition. Condition: stable Disposition: PACU Complications:: none
--- NOTE | 2017-09-03 17:37 | P.OP_ITS ---
Date of procedure: 09/03/17 Pre-op Diagnosis:: Right periorbital abscess Post-op diagnosis:: same Procedure performed:: Drainage of right periorbital abscess general anesthetic Surgeon:: Kevin Yung MD PHARMACY TECHNICIAN INSTRUCTOR:: Ilia Hopkins Anesthesia: GETA Estimated blood loss (mL): 10 Operative findings:: same as above Operative note:: With the patient under general anesthesia the face was prepped and draped. The eyes were protected with Steri-Strips. An incision was made over the epi center of the abscess in the right periorbital area. And necrotic tissue over around the epicentered was debrided. Using a mosquito forceps the abscess cavity was opened. It extended for about 4 cm. Considerable pus was evacuated , cultures were taken for C&S and anaerobes, and submitted. The area was then thoroughly cleansed with Hibiclens. Bleeding was stopped with bipolar cautery. Blood Loss was less than 10 cc. Bacitracin was applied. A dressing was applied and the patient was sent to recovery in improved general condition. Condition: stable Disposition: PACU Complications:: none
[2017-09-03 20:36] LABS: POC Glucose,Bedside 104 mg/dL (70-110)
[2017-09-04 04:00] VITALS: BP 111/66; PULSE 70; RESP 18; TEMP 36.6; O2SAT 94
[2017-09-04 07:25] VITALS: BP 133/64; PULSE 72; RESP 20; TEMP 36.4; O2SAT 98
--- NOTE | 2017-09-04 08:42 | HMH.ACPN2 ---
Internal Medicine - PN: Subj *Date: 09/04/17 *Time: 08:42 Interval history: Patient had a good night, ready to go home. I reviewed the discharge summary from Dr. Ramesh and her hospital course. Exam Vital signs and Labs for Last 24 Hours: Temp Pulse Resp BP Pulse Ox 97.5 F L 72 20 133/64 98 09/04/17 07:25 09/04/17 07:25 09/04/17 07:25 09/04/17 07:25 09/04/17 07:25 Laboratory Results - last 24 hr 09/03/17 11:45: POC Glucose 104 09/03/17 14:30: Vancomycin Trough 12.6 I & O for Last 24 hours: Intake & Output 09/01/17 09/02/17 09/03/17 09/04/17 11:59 11:59 11:59 11:59 Intake Total 1380 / 1380 720 / 720 Balance 1380 / 1380 720 / 720 Weight 204 lb 8.013 oz 204 lb 8.013 oz Microbiology Reports for the Last 24 Hours: Microbiology 09/03/17 09:40 Face Gram Stain - Final 09/03/17 09:40 Face Abscess Culture - Preliminary Gram Positive Cocci Narrative: Patient is awake, alert. Cardiopulmonary assessment unremarkable. Eating well. Wound is healing very nicely underneath the bandage on the right zygomatic arch. No streaking or fever. Assessment and Plan (1) Acute abscess of face Current visit: Yes Status: Acute Category: Medical Code(s): L02.01 - Cutaneous abscess of face (2) Periorbital cellulitis of right eye Current visit: Yes Status: Acute Category: Medical Code(s): L03.213 - Periorbital cellulitis - Assessment and plan all Dx Assessment and Plan for all problems:: Improving, discharged today. Plan as outlined in Dr. Ramesh discharge summary.
[2017-09-09 15:04] LABS: POC Glucose,Bedside 141 mg/dL (70-110)
[2017-09-09 15:05] LABS: POC Glucose,Bedside 162 mg/dL (70-110)
[2017-09-09 15:05] LABS: POC Glucose,Bedside 205 mg/dL (70-110)
[2017-09-09 15:06] LABS: POC Glucose,Bedside 163 mg/dL (70-110)
== END 2017-09-04 09:20 | disposition home or self-care (01) | DRG 603 ==
PROVIDERS: Otolaryngology; Admitting Provider Family Medicine; Family Provider Family Medicine; PCP Family Medicine; Visit Provider Family Medicine
PROC: 0H91XZZ Drainage of Face Skin, External Approach (ICD-10-PCS; principal; 2017-09-03 12:15)
DX: L03.213 Periorbital cellulitis (principal); A49.02 Methicillin resistant Staphylococcus aureus infection, unspecified site; E11.9 Type 2 diabetes mellitus without complications; J44.9 Chronic obstructive pulmonary disease, unspecified
CPT/HCPCS: 10061; 36415; 70487; 80048; 80202; 82962; 85025; 87070; 87077; 87186; 87205; 94640; 96374; J3370; Q9967

== ENCOUNTER → 2017-09-10 08:47 | Outpatient (CLI) | payer MEDICARE, MEDICAID, SELFPAY ==
--- NOTE | 2017-09-10 08:51 | CA_ITS ---
PROCEDURE: 2-D M-mode and color Doppler study INDICATIONS FOR THE TEST: Chest pain X COPD Heart Murmur Tobacco SmokingX Palpitations Fatigue Syncope Edema HypertensionXDiabetes Mellitus Rheumatic Fever SOBXDOEXObesityXHyperlipidemia Family History HD Additional History CVA PATIENT INFORMATION HEIGHT: 65 WEIGHT:204 GENDER: Female B/P:110/70 2-D/M-MODE INTERPRETATION: 2-D MEASUREMENTS OBSERVED VALUES IN CMS Right Ventricular Dimension (RVDd) 2.2 Interventricular Septum (Thickness)(IVsd) 1.0 Left Ventricular Internal Dimensions(LVIDd) 5.7 Left Ventricular Posterior Wall (Thickness)(LVPWd) .9 Aortic Root 3.5 Aortic Cusp Separation 2.1 Left Atrial Dimensions (LAD) 3.8 2D 1. Left atrium is qualitatively mildly enlarged, left ventricle is normal size, there is no concentric left ventricular hypertrophy, visually estimated ejection fraction 50% with no obvious regional wall motion abnormality. 2. The right atrium and right ventricle are normal size and contractility. 3. The aortic valve is minimally thickened and fibrosed. 4. The mitral and tricuspid valvular grossly normal. 5. The pulmonic valve is poorly visualized. 6. No significant pericardial effusion noted. DOPPLER INTERROGATION: Doppler interrogation of the aortic, mitral and tricuspid valvular presence of mild mitral and tricuspid regurgitation, tricuspid and jet velocity insufficient for calculation of the right ventricular systolic pressure, diastolic parameters are inconclusive. CONCLUSION: 1. Mildly enlarged left atrium, normal left ventricular size, visually estimated ejection fraction 50% with no obvious regional wall motion abnormality, diastolic parameters are inconclusive. 2. Mild mitral and tricuspid regurgitation. 3. No significant pericardial effusion noted.
[2017-09-10 09:39] LABS: Blood Urea Nitrogen 14 mg/dL (7-18); Creatinine,Serum 0.71 mg/dL (0.55-1.02); Estimated Glomerular Filt Rate 85 ml/min (>60); GFR (African American) 103 ML/MIN (>60)
--- NOTE | 2017-09-10 09:42 | MR_ITS ---
MR head/brain wo/w con HISTORY: ITS.REASON: PARALYSIS OF RIGHT UPPER EXTREMITY ORDERING PHYSICIAN: Matthew Ramesh MD PATIENT AGE: 56 years COMPARISON: None TECHNIQUE: Standard multiplanar multiecho sequences are performed without and with gadolinium enhancement. FINDINGS: No midline shift, mass effect, hydrocephalus, or acute infarction is evident. There is a small area of increased T2 signal in the deep white matter of the left frontal lobe in the periventricular region and there is a small ischemic gliotic focus. This does not demonstrate contrast enhancement. There is a mildly prominent draining pain extending from the right frontal region to the anterior horn of the right lateral ventricle consistent with a developmental venous anomaly The cerebellopontine angle, cerebellum, and brainstem are unremarkable. There is a small retention cyst in the floor the left maxillary sinus at 16 mm. The pituitary and optic chiasm are unremarkable. The craniocervical junction has an unremarkable appearance. No mastoid effusion or sinus air-fluid level. IMPRESSION: 1. No evidence of acute infarction. 2. Small T2 hyperintensity in the deep white matter of the left frontal lobe suggesting a small ischemic gliotic focus 3. 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
== END ==
PROVIDERS: Family Provider Family Medicine; PCP Family Medicine; Referring Provider Family Medicine; Visit Provider Family Medicine
DX: I63.9 Cerebral infarction, unspecified (principal); R29.898 Other symptoms and signs involving the musculoskeletal system; G83.21 Monoplegia of upper limb affecting right dominant side; J44.9 Chronic obstructive pulmonary disease, unspecified; Z79.899 Other long term (current) drug therapy
CPT/HCPCS: 36415; 70553; 82565; 84520; 93306; A9576

== ENCOUNTER → 2017-09-23 10:16 | Outpatient (CLI) | payer MEDICARE, MEDICAID, SELFPAY ==
--- NOTE | 2017-09-23 10:27 | XR_ITS ---
XR shoulder RT min 2V HISTORY: ITS.REASON: RT SHOULDER PAIN ORDERING PHYSICIAN: Matthew Ramesh MD PATIENT AGE: 56 years COMPARISON: None FINDINGS: There is acromioclavicular arthropathy with hypertrophic changes along the inferior aspect of the acromium with subacromial stenosis. There are some hypertrophic changes also at the greater tuberosity of the humerus. Mild osteoarthritic changes are present at the glenohumeral joint. No fracture or dislocation. No lytic or blastic change. 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
--- NOTE | 2017-09-23 10:27 | XR_ITS ---
EXAM: XR cervical spine 4V HISTORY: ITS.REASON: RT ARM WEAKNESS,RT HAND NUMBNESS ORDERING PHYSICIAN: Matthew Ramesh MD PATIENT AGE: 56 years COMPARISON: None FINDINGS: Normal alignment. No fracture or dislocation. No lytic or blastic change. Moderate to severe degenerative disc disease is present at C5-C6 with decrease in the disc space, osteophyte formation, and osteosclerosis of the endplates. There is uncovertebral hypertrophy with bilateral foraminal narrowing at that level. There is nuchal ligament calcification posterior to C5. IMPRESSION: Degenerative disc disease with endplate osteophytes and uncovertebral hypertrophy with bilateral foraminal narrowing at C5-C6
== END ==
PROVIDERS: PCP Family Medicine; Visit Provider Family Medicine
DX: M25.511 Pain in right shoulder (principal); R29.898 Other symptoms and signs involving the musculoskeletal system; R20.0 Anesthesia of skin
CPT/HCPCS: 72050; 73030

== ENCOUNTER → 2017-10-05 15:09 | Outpatient (CLI) | payer MEDICARE, MEDICAID, SELFPAY ==
--- NOTE | 2017-10-05 15:11 | MR_ITS ---
MR shoulder RT wo con HISTORY: Right shoulder pain and weakness and numbness with limited range of motion, acromioclavicular arthropathy, subacromial stenosis ITS.REASON: ARM WEAKNESS AND NUMBNESS ORDERING PHYSICIAN: Matthew Ramesh MD PATIENT AGE: 56 years COMPARISON: Radiograph 09/23/2017 TECHNIQUE: Standard multiplanar multiecho sequences are performed without contrast. FINDINGS: There are hypertrophic changes of the acromioclavicular joint with hypertrophic changes along the inferior aspect of the acromion with resultant subacromial stenosis. There is some thickening of the supraspinatus tendon with focal increased T2 signal involving the posterior aspect of the supraspinatus tendon distally consistent with partial tear. The infraspinatus tendon appear intact. There are some hypertrophic changes along the humeral head laterally as well. Osteoarthritic changes are present at the glenohumeral joint. No obvious labral tear. The bicipital tendon is in place. The subscapularis and teres minor tendons appear intact. Minimal subcortical cystic changes are present in the humeral head. IMPRESSION: 1. Acromioclavicular arthropathy with hypertrophic changes with subacromial stenosis with mild impingement upon the supraspinatus tendon with tendinopathy/tendinosis of the supraspinatus and infraspinatus tendons along with a partial tear of the posterior and distal aspect of the supraspinatus tendon. A complete tear with muscle and tendinous retraction not apparent 2. Hypertrophic changes along the inferior surface of the acromion and along the humeral head with osteoarthritic changes of the glenohumeral joint
--- NOTE | 2017-10-05 15:11 | MR_ITS ---
MR cervical spine wo con, MR 3-d myelogram/MRCP HISTORY: Rt arm weakness and pain. Symptoms X1 month. Right arm numbness ITS.REASON: RIGHT SHOULDER PAIN ORDERING PHYSICIAN: Matthew Ramesh MD PATIENT AGE: 56 years COMPARISON: CT scan of September 10, 2010 TECHNIQUE: Standard multiplanar multiecho sequences are performed without contrast. 3-D MIP and myelographic images are also rendered and reviewed FINDINGS: There is straightening of the cervical lordosis. There is hypertrophic change at the odontoid process posteriorly consistent with pannus formation. Resultant narrowing of the spinal canal at this level at the atlantoaxial joint with canal measuring 9 mm. No definite cord compression. C2-C3, C3-C4, and C4-C5 have an unremarkable appearance. C5-C6: Severe degenerative disc disease with bulging disc and broad-based central/right paracentral disc osteophyte complex with resultant canal stenosis of 7 mm with impingement upon the anterior right aspect of the cord with flattening of the cord at this region. There is also bilateral lateral recess and foraminal narrowing. C6-C7 and C7-T1 have an unremarkable appearance. IMPRESSION: 1. 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 Severe degenerative disc disease at C5-C6 with bulging disc and broad-based central/ right paracentral disc osteophyte complex with resultant canal stenosis of 7 mm with impingement upon the anterior right aspect of the cord with flattening of the cord and bilateral lateral recess and foraminal narrowing
== END ==
PROVIDERS: Family Provider Family Medicine; PCP Family Medicine; Visit Provider Family Medicine
DX: M25.511 Pain in right shoulder (principal); R29.898 Other symptoms and signs involving the musculoskeletal system; R20.0 Anesthesia of skin
CPT/HCPCS: 72141; 73221; 76376

== ENCOUNTER → 2018-02-23 08:16 | Outpatient (CLI) | payer MEDICARE, MEDICAID, SELFPAY ==
--- NOTE | 2018-02-23 08:27 | MR_ITS ---
MR head/brain wo/w con HISTORY: Seizures, dizziness, blurred vision ITS.REASON: involuntary trembling, seizure activity ORDERING PHYSICIAN: Mar Cisneros MD PATIENT AGE: 57 years Comparison: 09/10/2017 TECHNIQUE: Standard multiplanar multiecho sequences are performed without and with gadolinium enhancement. FINDINGS: No midline shift, mass effect, intracranial hemorrhage, or hydrocephalus is evident. No enhancing lesions. No evidence of acute infarction. The cerebellopontine angles, cerebellum, and brainstem are unremarkable. Small focus of increased T2 signal once again noted in the deep white matter left frontal lobe unchanged. Venous developmental anomaly once again noted in the right frontal lobe unchanged. No gliotic changes in this area. The pituitary and optic chiasm are unremarkable. 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 No mastoid effusion or sinus air-fluid level. Retention cyst is present in the left maxillary sinus and 16 mm. IMPRESSION: 1. No acute intracranial findings. No change from previous exam. 2. No change incidental developmental venous anomaly in the right frontal lobe and incidental pineal cyst. 3. No change small gliotic focus left frontal lobe
[2018-02-23 08:35] LABS: Anion Gap 12.3 mEq/L (5-15); Blood Urea Nitrogen 10 mg/dL (7-18); Calcium 8.6 mg/dL (8.5-10.1); Carbon Dioxide 30 mmol/L (21.0-32.0); Chloride 102 mmol/L (98-107); Creatinine,Serum 0.89 mg/dL (0.55-1.02); Estimated Glomerular Filt Rate 66 ml/min (>60); GFR (African American) 79 ML/MIN (>60); Glucose 175 mg/dL (74-106); Potassium 4.3 mmoL/L (3.5-5.1); Sodium 140 mmol/L (136-145)
--- NOTE | 2018-02-23 09:36 | HMH.ITSHM ---
GABAPENTIN HYDROCODONE SINGULAIR METFORMIN BABY ASPIRIN ALBUTEROL
== END ==
PROVIDERS: Family Provider Family Medicine; PCP Family Medicine; Visit Provider Specialist
DX: G40.909 Epilepsy, unspecified, not intractable, without status epilepticus (principal); R25.1 Tremor, unspecified
CPT/HCPCS: 36415; 70553; 80048; A9576

== ENCOUNTER → 2018-03-07 09:56 | Outpatient (POV) | payer MEDICARE, MEDICAID, SELFPAY | PROVIDERS: Visit Provider Specialist | DX: R51 Headache (principal); G40.909 Epilepsy, unspecified, not intractable, without status epilepticus | CPT/HCPCS: 95819 ==

== ENCOUNTER 2018-07-18 14:32 | Observation (INO) ==
--- NOTE | 2018-07-18 14:56 | Pharmacy Consult Notes ---
[facility] Pharmacy VTE Monitoring - Patient Demographics Admission date: 07/18/18 Report Date: 07/18/18 Time: 14:56 Allergies/Adverse Reactions: Patient Allergies shellfish derived [From SHELLFISH (FOOD/DRUG)] Allergy (Severe, Verified 07/01/18 14:33) SWELLING azithromycin [From ZITHROMAX] Allergy (Unknown, Verified 07/01/18 14:33) doxycycline [DOXYCYCLINE] Allergy (Unknown, Verified 07/01/18 14:33) ibuprofen [From MOTRIN] Allergy (Unknown, Verified 07/01/18 14:33) terbutaline [TERBUTALINE] Allergy (Unknown, Verified 07/01/18 14:33) From SHELLFISH (FOOD/DRUG) Allergy (Severe, Uncoded 03/28/18 15:29) SWELLING - VTE Risk Was VTE Risk Assessment Performed: Yes Clinical Trial Participant: No - Prophylaxis VTE Prophylaxis Ordered?: Yes Types of VTE Prophylaxis: TEDS Knee High
[2018-07-18 16:00] LABS: Basophils # 0.1 K/mm3 (0-0.2); Basophils % 0.6 % (0.1-2.0); Eosinophils # 0.1 K/mm3 (0.0-0.4); Eosinophils % 0.8 % (0.1-12.0); Hematocrit 41.9 % (37.0-47.0); Hemoglobin 13.4 g/dL (12.2-16.2); Lymphocytes # 1.6 K/mm3 (0.7-4.5); Lymphocytes % 19.1 % (10-50); Mean Corpuscular HGB Conc 32.1 g/dL (31.8-35.4); Mean Corpuscular Hemoglobin 29.4 pg (27.0-31.2); Mean Corpuscular Volume 91.6 fl (81-99); Mean Platelet Volume 7.7 fl (7.4-10.4); Monocytes # 0.3 K/mm3 (0.1-1.0); Monocytes % 3.2 % (1.7-9.3); Neutrophils # 6.5 K/mm3 (1.8-7.8); Neutrophils % 76.4 % (37.0-80.0); Platelet Count 277 K/mm3 (142-424); Red Blood Count 4.57 M/mm3 (4.20-5.40); Red Cell Distribution Width 13.8 % (11.5-17.5); White Blood Count 8.6 K/mm3 (4.8-10.8)
[2018-07-18 16:05] LABS: Anion Gap 15.4 mEq/L (5-15); Blood Urea Nitrogen 9 mg/dL (7-18); Calcium 8.6 mg/dL (8.5-10.1); Carbon Dioxide 25 mmol/L (21.0-32.0); Chloride 99 mmol/L (98-107); Glucose 189 mg/dL (74-106); Potassium 4.4 mmoL/L (3.5-5.1); Sodium 135 mmol/L (136-145)
--- NOTE | 2018-07-19 07:14 | Progress Note ---
Internal Medicine - PN: Subj *Date: 07/19/18 *Time: 07:10 Interval history: Patient reports to having a good night and ready to go home this morning. She is up in the recliner chair playing games on phone. Has had oxygen on and off throughout the night and tolerated walking to the bathroom on room air with less respiratory effort than yesterday. Does report a severe chronic cough that sometimes causes passing out, currently producing a yellow sputum. Exam Vital signs and Labs for Last 24 Hours: Temp Pulse Resp BP Pulse Ox 97.4 F L 85 24 112/75 98 07/19/18 04:00 07/19/18 04:00 07/19/18 04:00 07/19/18 04:00 07/19/18 04:00 Laboratory Results - last 24 hr 07/18/18 15:45: WBC 8.6, RBC 4.57, Hgb 13.4, Hct 41.9, MCV 91.6, MCH 29.4, MCHC 32.1, RDW 13.8, Plt Count 277, MPV 7.7, Neut % (Auto) 76.4, Lymph % (Auto) 19.1, Bradford % (Auto) 3.2, Eos % (Auto) 0.8, Baso % (Auto) 0.6, Neut # (Auto) 6.5, Lymph # (Auto) 1.6, Bradford # (Auto) 0.3, Eos # (Auto) 0.1, Baso # (Auto) 0.1 07/18/18 15:45: Sodium 135 L, Potassium 4.4, Chloride 99, Carbon Dioxide 25, Anion Gap 15.4 H, BUN 9, Creatinine 0.84, Estimated GFR 70, Est GFR ( Amer) 85, Glucose 189 H, Calcium 8.6 07/18/18 16:39: POC Glucose 178 H I & O for Last 24 hours: Intake & Output 07/16/18 07/17/18 07/18/18 07/19/18 23:59 23:59 23:59 23:59 Intake Total 480 / 480 Balance 480 / 480 Weight 218 lb 5.992 oz 215 lb 3 oz Microbiology Reports for the Last 24 Hours: Microbiology 07/18/18 16:25 Sputum - Expectorated Sputum Gram Stain - Final - Constitutional no acute distress - *Routine HEENT Exam Head: Present: normocephalic Eye: Present: PERRL - *Routine Respiratory Exam Present: decreased breath sounds. Absent: accessory muscle use, respiratory distress Comments: tight cough without sputum production noted with deep inspiration, tachypnea also noted - *Routine Cardiovascular Exam Present: RRR - *Routine Abdominal Exam Present: soft, normoactive bowel sounds. Absent: tenderness - *Routine Neurological Exam Present: alert, oriented X3 - Routine Psychiatric Exam Present: normal affect Assessment and Plan - Assessment and plan all Dx Assessment and Plan for all problems:: Will discharge patient home with oral amoxicillin, follow up with me in the office post discharge Wednesday07/22/18 at 10 am please.
--- NOTE | 2018-07-19 07:26 | Discharge Summary ---
General - General Admission date:: 07/18/18 Discharge date: 07/19/18 HPI HPI: 57-year-old female with severe COPD presented to the office on July 18 with tachypnea, shortness of breath, cough with associated syncope. Patient had been treated for pneumonia approximately 2 weeks earlier through the emergency department. Patient felt like she had recovered from her illness until the preceding few days. Her daughter became ill with a respiratory infection and the patient's symptoms soon developed. In the office she was tachypneic with respirations in the 30s. O2 sat was in the mid 90s. Patient had diffuse wheezing on presentation that did respond to a DuoNeb in the office. She seemed in mild respiratory distress a decision was made to admit her to the hospital for treatment of COPD exacerbation. Hospital Course Hospital Course: Patient was admitted and given intravenous Rocephin as well as duo nebs 4 times daily. As patient was not wheezing after her breathing treatment in the office steroids were held. She was given intramuscular steroids prior to discharge from the office. Patient was given supplemental oxygen with room air O2 sats remaining in the mid 90s. Supplemental oxygen did seem to improve her tachypnea. The following morning the patient had improved significantly and was essentially back to her baseline. O2 sats were in the mid to high 90s on room air. Lung exam revealed clear lungs although deep breathing did trigger cough. There were no signs of respiratory distress. Patient was discharged home on amoxicillin and will follow-up in the office on July 22 at 10 AM with Argelia Hernandez APRN Objective Vital signs: Temp Pulse Resp BP Pulse Ox 97.4 F L 85 24 112/75 98 07/19/18 04:00 07/19/18 04:00 07/19/18 04:00 07/19/18 04:00 07/19/18 04:00 Results Labs on day of discharge: Labs from last 24 hours 07/18/18 07/18/18 07/18/18 16:39 15:45 15:45 WBC 8.6 RBC 4.57 Hgb 13.4 Hct 41.9 MCV 91.6 MCH 29.4 MCHC 32.1 RDW 13.8 Plt Count 277 MPV 7.7 Neut % (Auto) 76.4 Lymph % (Auto) 19.1 Swisher % (Auto) 3.2 Eos % (Auto) 0.8 Baso % (Auto) 0.6 Neut # (Auto) 6.5 Lymph # (Auto) 1.6 Swisher # (Auto) 0.3 Eos # (Auto) 0.1 Baso # (Auto) 0.1 Sodium 135 L Potassium 4.4 Chloride 99 Carbon Dioxide 25 Anion Gap 15.4 H BUN 9 Creatinine 0.84 Estimated GFR 70 Est GFR ( Amer) 85 Glucose 189 H POC Glucose 178 H Calcium 8.6 DS: Diagnosis - Discharge Diagnosis (1) Acute exacerbation of chronic obstructive pulmonary disease (COPD) Status: Acute Discharge Plan - Patient Discharge Instructions ACTIVITY: Continue current activity DIET: continue same diet - Follow up Plan Follow up with: Argelia Hernandez APRN [Nurse Practitioner] - 07/22/18 10:00 am Disposition: Home, Self-Usp Medications: Home Medications Medication Instructions Recorded Confirmed Type Aspirin [Aspir 81] 81 mg PO DAILY 09/02/17 07/18/18 History Citalopram Hydrobromide [Celexa] 20 mg PO DAILY 09/02/17 07/18/18 History Gabapentin [Gabapentin 300mg Cap] 300 mg PO TID 09/02/17 07/18/18 History Insulin Degludec [Tresiba 86 unit SQ DAILY 09/02/17 07/18/18 History Flextouch U-100] Metformin HCl [Glucophage 500mg 1,000 mg PO BID 09/02/17 07/18/18 History Tablet] Metoclopramide HCl [Metoclopramide 5 mg PO NEEDED PRN 09/02/17 07/18/18 History 10mg Tablet] Montelukast Sodium [Montelukast 10 mg PO HS 09/02/17 07/18/18 History 10mg Tab] Tiotropium [place] [Spiriva 1 puff INHALATION DAILY 09/02/17 07/18/18 History 18mcg/puff inhaler] Hydrocodone Bit/Homatrop Me-Br 1 each PO Q6HP PRN 09/03/17 07/18/18 History [Hycodan 5mg tablet] Hydrocodone/Acetaminophen 1 each PO QID PRN 09/03/17 07/18/18 History [Hydrocodone-Acetamin 10-325 mg] Cyclobenzaprine HCl 10 mg PO TIDP PRN 12/27/17 07/18/18 History [Cyclobenzaprine 10mg Tab] Ipratropium/Albuterol Sulfate 3 ml IH Q4-6H PRN 07/18/18 07/18/18 History [Duoneb 3mL neb] Amoxicillin [Amoxicillin 500mg Tab] 2 tab PO Q12 #28 tablet 07/19/18 Rx Prescriptions/Medication Reconciliation: New Amoxicillin [Amoxicillin 500mg Tab] 2 tab PO Q12 #28 tablet Continue Tiotropium [place] [Spiriva 18mcg/puff inhaler] 1 puff INHALATION DAILY Montelukast Sodium [Montelukast 10mg Tab] 10 mg PO HS Aspirin [Aspir 81] 81 mg PO DAILY Metoclopramide HCl [Metoclopramide 10mg Tablet] 5 mg PO NEEDED PRN PRN Reason: Nausea Metformin HCl [Glucophage 500mg Tablet] 1,000 mg PO BID Insulin Degludec [Tresiba Flextouch U-100] 86 unit SQ DAILY Hydrocodone/Acetaminophen [Hydrocodone-Acetamin 10-325 mg] 1 each PO QID PRN PRN Reason: PAIN Hydrocodone Bit/Homatrop Me-Br [Hycodan 5mg tablet] 1 each PO Q6HP PRN PRN Reason: Cough Cyclobenzaprine HCl [Cyclobenzaprine 10mg Tab] 10 mg PO TIDP PRN PRN Reason: muscle relaxer Ipratropium/Albuterol Sulfate [Duoneb 3mL neb] 3 ml IH Q4-6H PRN PRN Reason: BREATHING Gabapentin [Gabapentin 300mg Cap] 300 mg PO TID Citalopram Hydrobromide [Celexa] 20 mg PO DAILY
== END 2018-07-19 09:09 | disposition home or self-care (01) ==
LOC: 2ND
PROVIDERS: ADMIT Family Medicine; ATTEND Family Medicine
CPT/HCPCS: 71020; 71046; 80048; 82962; 85025; 87070; 87205; 90732; G0378

== ENCOUNTER 2018-09-16 05:51 | Inpatient (IN) ==
[2018-09-16 06:17] LABS: Basophils % 0.1 % (0.1-2.0); Hemoglobin 12.9 g/dL (12.2-16.2); Lymphocytes % 10.6 % (10-50); Mean Corpuscular Volume 88.3 fl (81-99); Monocytes # 0.8 K/mm3 (0.1-1.0); Monocytes % 4.4 % (1.7-9.3); Neutrophils # 16.1 K/mm3 (1.8-7.8); Neutrophils % 84.8 % (37.0-80.0); Platelet Count 236 K/mm3 (142-424); Red Cell Distribution Width 14.1 % (11.5-17.5)
[2018-09-16 06:29] LABS: Albumin Level 2.5 gm/dL (3.4-5.0); Albumin/Globulin Ratio 0.5 (1.1-1.8); Anion Gap 17.3 mEq/L (5-15); Calcium 8.6 mg/dL (8.5-10.1); Globulin 5.1 gm/dl (1.3-3.2); Potassium 3.3 mmoL/L (3.5-5.1); Total Protein,Serum 7.6 gm/dL (6.4-8.2)
[2018-09-16 06:40] LABS: Lymphocytes % 10 % (10-50); Monocytes % 4 % (2-9); Neutrophils % 86 % (42-76); RBC Morphology Normal; Total Cells Counted 100
[2018-09-16 06:58] LABS: Microscopic, Urine URINE MICROSCOPIC (MICROSCOPIC)
[2018-09-16 07:02] LABS: Erythrocyte Sedimentation Rate > 120 mm/hr (0-30)
[2018-09-16 07:12] LABS: Appearance,Urine CLEAR (Clear); Blood, Urine 2+ (Negative); Color,Urine DK YELLOW (Yellow); Glucose,Urine (UA) Negative (Negative); Ketones,Urine TRACE (Negative); Leukocyte Esterase,Urine 1+ (Negative); PH,Urine 5.5 (5.0-8.5); Protein,Urine 2+ (Negative); Specific Gravity, Urine 1.025 (1.005-1.030); Urobilinogen,Urine 0.2 EU/dl (0.2)
[2018-09-16 07:15] LABS: Bilirubin,Urine Negative (Negative)
--- NOTE | 2018-09-16 07:16 | Emergency Department Note ---
ED Disposition Clinical Impression: Weakness, Renal insufficiency, Obesity (BMI 30.0-34.9), Elevated erythrocyte sedimentation rate Diarrhea Qualifiers: Diarrhea type: unspecified type Qualified Code(s): R19.7 - Diarrhea, unspecified Leukocytosis Qualifiers: Leukocytosis type: unspecified Qualified Code(s): D72.829 - Elevated white blood cell count, unspecified Diabetes mellitus, insulin dependent (IDDM), uncontrolled Qualifiers: Glycemic state: with hyperglycemia Qualified Code(s): E10.65 - Type 1 diabetes mellitus with hyperglycemia Disposition: Admitted as Observation Condition on Discharge: Fair Referrals: Matthew Ramesh MD [Primary Care Provider] - - Critical Care Critical Care Time: No Attestation: On 09/16/18, the high probability of a clinically significant, sudden or life threatening deterioration of the following system(s) required my full and direct attention, intervention and personal management. The time I documented below is in addition to time spent performing reported procedures but includes the following listed in this critical care notation. Medical Decision Making - Medical Records Medical records reviewed: Yes: I reviewed the patient's medical records. - Paul Inquiry Pt receiving controlled substance: No Vital Signs: 09/16/18 05:51 Temperature 100.1 F H Temperature Source Oral Pulse Rate [Right Radial] 104 H Respiratory Rate 24 Blood Pressure [Right Arm] 142/83 H Blood Pressure Mean [Right Arm] 102 Blood Pressure Source [Right Arm] Automatic Cuff Blood Pressure Position [Right Arm] Supine 02 Sat by Pulse Oximetry 97 Oxygen Delivery Method Room Air - Lab Data Lab results reviewed: Yes: I reviewed the patient's lab results. Lab Results 09/16/18 05:57: POC Glucose 205 H 09/16/18 06:05: WBC 19.0 H, RBC 4.30, Hgb 12.9, Hct 38.0, MCV 88.3, MCH 30.0, MCHC 34.0, RDW 14.1, Plt Count 236, MPV 9.0, Neut % (Auto) 84.8 H, Lymph % (Auto) 10.6, [place] % (Auto) 4.4, Eos % (Auto) 0.0 L, Baso % (Auto) 0.1, Neut # (Auto) 16.1 H, Lymph # (Auto) 2.0, [place] # (Auto) 0.8, Eos # (Auto) 0.0, Baso # (Auto) 0.0, Total Counted 100, Neutrophils % (Manual) 86 H, Lymphocytes % (Manual) 10, Monocytes % (Manual) 4, Platelet Estimate Normal, RBC Morphology Normal, ESR > 120 H 09/16/18 06:05: Sodium 130 L, Potassium 3.3 L, Chloride 94 L, Carbon Dioxide 22, Anion Gap 17.3 H, BUN 31 H, Creatinine 1.51 H, Estimated Creat Clear 60, Estimated GFR 36 L, Est GFR ( Amer) 43 L, Glucose 214 H, Calcium 8.6, Total Bilirubin 1.0, AST 9 L, ALT 21, Alkaline Phosphatase 96, C-Reactive Protein 36.0 H, Total Protein 7.6, Albumin 2.5 L, Globulin 5.1 H, Albumin/Globulin Ratio 0.5 L, Amylase 18 L, Lipase 81 09/16/18 06:05: Lactate 1.5 09/16/18 06:05: Influenza Type A Ag Negative, Influenza Type B Ag Negative 09/16/18 06:05: Group A Strep Rapid Negative 09/16/18 06:05: Troponin I < 0.02 Result diagrams: 09/16/18 06:05 09/16/18 06:05 Orders (Tests/Meds): ED MEDICATIONS Generic Name Dose Route Start Last Admin Trade Name Freq PRN Reason Stop Dose Admin Sodium Chloride 1,000 mls @ 999 mls/hr 09/16/18 06:15 09/16/18 06:08 Sod Chlor 0.9% 1000ml Bag IV 09/16/18 07:15 999 mls/hr .Q1H1M SAIRA Administration Sodium Chloride 10 ml 09/16/18 06:06 Saline Flush 10ml Syringe IV 10/16/18 06:05 NEEDED PRN Maintain IV Site Discontinued Medications Generic Name Dose Route Start Last Admin Trade Name Freq PRN Reason Stop Dose Admin Acetaminophen 1,000 mg 09/16/18 06:06 09/16/18 06:08 Tylenol 500mg Tablet PO 09/16/18 06:07 1,000 mg ONCE ONE Administration ORDERS Category Date Time Status CT abdomen pelvis wo con Stat Cat Scan 09/16/18 06:[address] head/brain wo con Stat Cat Scan 09/16/18 06:09 Taken XR chest portable Stat Exams 09/16/18 06:03 Taken Urinalysis and Microscopic Stat Lab 09/16/18 06:50 Received Blood Culture Stat Micro 09/16/18 06:05 Received Strep Screen Confirmation Stat Micro 09/16/18 06:05 Received - Radiology Data #1 Image(s): Chest Image Reviewed: Yes I reviewed the patient's radiology image Preliminary Findings: Normal/NAD - CT Data CT Scan: Head, Abdomen, Pelvis Time Received: 07:[address] Reviewed: Yes: I have viewed the radiologist's interpretation Preliminary Findings: Abnormal (nonspecific) - ECG Data Tracing #1 Normal Sinus Rhythm: Yes Ischemic changes: non-specific ST-T wave changes - Physician Consults Physician Consulted: lupis Reason -: Admission Nausea/Vomiting/Diarrhea HPI - General Chief complaint: Weakness Stated complaint: chills Time Seen by Provider: 09/16/18 07:13 Mode of Arrival: Wheelchair Source of Information: Patient, Relative, Medical Record Limitations: No Limitations Description of Symptoms (Recalled from ER Triage Doc. by RN): pt states she has been having chills since wednesday - History of Present Illness HPI Narrative: this wf presents with not feeling well over the last few days with diarrhea w/o blood and has fever and chills - she has no cough or other c/o MD complaint: nausea, diarrhea, other (weakness) Onset (ago): day(s) Associated Abdominal Pain: Yes Location of pain: diffuse Severity: moderate Associated symptoms: myalgias, weakness - Related Data Home Medications Medication Instructions Recorded Confirmed Aspirin [Aspir 81] 81 mg PO DAILY 09/02/17 09/16/18 Citalopram Hydrobromide [Celexa] 20 mg PO DAILY 09/02/17 09/16/18 Gabapentin [Gabapentin 300mg Cap] 300 mg PO BID 09/02/17 09/16/18 Insulin Degludec [Tresiba 86 unit SQ DAILY 09/02/17 09/16/18 Flextouch U-100] Metformin HCl [Glucophage 500mg 1,000 mg PO BID 09/02/17 09/16/18 Tablet] Montelukast Sodium [Montelukast 10 mg PO HS 09/02/17 09/16/18 10mg Tab] Tiotropium [place] [Spiriva 1 puff INHALATION DAILY 09/02/17 09/16/18 18mcg/puff inhaler] Hydrocodone Bit/Homatrop Me-Br 1 each PO Q6HP PRN 09/03/17 09/16/18 [Hycodan 5mg tablet] Hydrocodone/Acetaminophen 1 each PO QID PRN 09/03/17 09/16/18 [Hydrocodone-Acetamin 10-325 mg] Albuterol Sulfate [Albuterol HFA 1 - 2 puffs IH Q4-6H PRN 09/16/18 09/16/18 Inhaler] Budesonide [Pulmicort 0.5mg/2mL 0.5 mg IH Q4-6H PRN 09/16/18 09/16/18 neb] Allergies Allergy/AdvReac Type Severity Reaction Status Date / Time shellfish derived Allergy Severe SWELLING Verified 09/16/18 06:20 [From SHELLFISH (FOOD/DRUG)] azithromycin [From ZITHROMAX] Allergy Unknown Verified 09/16/18 06:20 doxycycline [DOXYCYCLINE] Allergy Unknown Verified 09/16/18 06:20 ibuprofen [From MOTRIN] Allergy Unknown Verified 09/16/18 06:20 terbutaline [TERBUTALINE] Allergy Unknown Verified 09/16/18 06:20 From SHELLFISH (FOOD/DRUG) Allergy Severe SWELLING Uncoded 03/28/18 15:29 [facility] History - Hepatitis A Screen Drug use history?: No High risk sexual behaviors?: No History of sexually transmitted infection?: No Currently employed?: No Childcare worker?: No Do you have indoor plumbing?: Yes Do you have electricity?: Yes Attestation statement:: This patient has been screened for Hepatitis A risk factors. I have reviewed the patient's past medical history: Yes Medical History: Reports:: Anxiety, Asthma, Chronic Obstructive Pulmonary Disease (COPD), Depression, Diabetes Mellitus Type 2, Gastroesophageal Reflux Disease(GERD), Migraine Denies:: Cancer, Diabetes Mellitus Type 1, MRSA Other Medical History: Reports: Arthritis, Hoarseness Laterality Cases: Right: ACL Repair, Bilateral: Tonsillectomy Other Surgeries: Yes: Dilation and Curettage, Hysterectomy-Total Amputation: No Fractures: No - Social History Smoking Status: Former smoker Tobacco Type: cigarettes # Packs/Day (cigarettes): 1 Smoking End Date: 08/19/2018 Alcohol Intake: never Alcohol Intake Frequency:: other Substance Use Type: denies use Occupational Status: disabled Housing: house Household Members: children - Psychiatric History Expresses thoughts of harming self/others: None Suicide Plan Description: No Plan Pschychiatric History:: Reports:: Anxiety, Depression Family Hx:: Anemia, Asthma, Bleeding Disorder, Cancer, Coronary Artery Disease, Diabetes, Hypertension, Kidney Disease, Stroke ROS Obtained: Yes All systems reviewed & no additional complaints - Constitutional Constitutional: Reports fever(s), Reports poor appetite, Reports malaise - Eyes Eyes: Denies change in vision - ENT Ears, Nose, Mouth, and Throat: Denies sore throat - Cardiovascular Cardiovascular: Denies chest pain - Respiratory Respiratory: No cough - Gastrointestinal Gastrointestingal: Reports: as per HPI, diarrhea, nausea. Denies: abdominal pain - Genitourinary Female Genitourinary: Denies hematuria - Musculoskeletal Musculoskeletal: Denies joint pain, Denies joint swelling - Integumentary/Breasts Skin/Breast: Denies rash - Neurologic Neurologic: Reports as per HPI, Denies focal weakness, Reports headache(s), Denies seizure-like activity Physical Exam - General General appearance: alert, obese - Head Head exam: normocephalic - Eye Eye exam: Present: PERRL, EOMI. Absent: scleral icterus - ENT ENT exam: Present: mucous membranes dry - Neck Neck exam: Present: trachea midline - Respiratory Respiratory exam: Present: normal lung sounds bilaterally. Absent: respiratory distress - Cardiovascular Cardiovascular exam: Present: regular rate, systolic murmur, +S4 - Abdominal Exam Abdominal exam: Present: soft. Absent: tenderness - Extremities Exam Extremities exam: Absent: calf tenderness - Neurological Exam Neurological exam: Present: alert, oriented X3, CN II-XII intact. Absent: motor sensory deficit, reflexes normal - Psychiatric Psychiatric exam: Present: anxious - Skin Skin exam: Absent: rash
[2018-09-16 07:27] LABS: Bacteria,Urine 4+ /lpf
--- NOTE | 2018-09-16 07:40 | History & Physical Report ---
*Admission Date: 09/16/18 *Chief complaint: Weakness *History of present illness: 57-year-old female with history of TIA presented to the emergency department this morning because she thought she was having a stroke. Patient associated the symptom of chills with having a stroke because she now recalls that with her previous TIA she had chills. Apparently when the patient awoke this morning she was confused and had been having chills for the last 2 days at least. Family has also suspected she has been having fevers and she did have a low-grade fever on presentation to the emergency department. Patient also reports diarrhea all week long. She has vomited a single time. She has not had unilateral weakness or sensory loss. Workup was begun in the emergency department which did reveal an elevated white blood cell count with left shift but no new abnormality on CT scan of the head, abdomen, pelvis. [facility] History I have reviewed the patient's past medical history: Yes Medical History: Reports:: Anxiety, Asthma, Chronic Obstructive Pulmonary Disease (COPD), Depression, Diabetes Mellitus Type 2, Gastroesophageal Reflux Disease(GERD), Migraine, Transient Ischemic Attacks (TIA) Denies:: Cancer, Diabetes Mellitus Type 1, MRSA *Have you ever received a pneumonia vaccine?: Yes *Have you received a flu vaccine this season?: Yes Other Medical History: Reports: Arthritis, Hoarseness Laterality Cases: Right: ACL Repair, Bilateral: Tonsillectomy Other Surgeries: Yes: Dilation and Curettage, Hysterectomy-Total Amputation: No Fractures: No - *Social History Smoking Status: Former smoker Tobacco Type: cigarettes # Packs/Day (cigarettes): 1 Smoking End Date: 08/19/2018 Alcohol Intake: never Alcohol Intake Frequency:: other Substance Use Type: denies use *Occupational Status:: disabled Housing: house Household Members: children *Travel in the last 8 weeks: None - Psychiatric History Expresses thoughts of harming self/others: None Suicide Plan Description: No Plan Pschychiatric History:: Reports:: Anxiety, Depression Family Hx:: Anemia, Asthma, Bleeding Disorder, Cancer, Coronary Artery Disease, Diabetes, Hypertension, Kidney Disease, Stroke Review of Systems - Review of Systems Review of systems:: pertinent systems reviewed and negative unless documented below - Constitutional Reports body ache(s), Reports chills, Reports daytime sleepiness, Reports lack of energy - ENT Denies change in voice - *Cardiovascular Denies chest pain at rest - *Respiratory Denies chest congestion, Denies cough - *Gastrointestinal Reports loose stools - *Genitourinary Denies abnormal periods - *Neurologic Reports headache(s), Denies localized weakness, Denies seizure-like activity Meds Home Medications Medication Instructions Recorded Confirmed Type Aspirin [Aspir 81] 81 mg PO DAILY 09/02/17 09/16/18 History Citalopram Hydrobromide [Celexa] 20 mg PO DAILY 09/02/17 09/16/18 History Gabapentin [Gabapentin 300mg Cap] 300 mg PO BID 09/02/17 09/16/18 History Insulin Degludec [Tresiba 86 unit SQ DAILY 09/02/17 09/16/18 History Flextouch U-100] Metformin HCl [Glucophage 500mg 1,000 mg PO BID 09/02/17 09/16/18 History Tablet] Montelukast Sodium [Montelukast 10 mg PO HS 09/02/17 09/16/18 History 10mg Tab] Tiotropium [place] [Spiriva 1 puff INHALATION DAILY 09/02/17 09/16/18 History 18mcg/puff inhaler] Hydrocodone Bit/Homatrop Me-Br 1 each PO Q6HP PRN 09/03/17 09/16/18 History [Hycodan 5mg tablet] Hydrocodone/Acetaminophen 1 each PO QID PRN 09/03/17 09/16/18 History [Hydrocodone-Acetamin 10-325 mg] Albuterol Sulfate [Albuterol HFA 1 - 2 puffs IH Q4-6H PRN 09/16/18 09/16/18 History Inhaler] Budesonide [Pulmicort 0.5mg/2mL 0.5 mg IH Q4-6H PRN 09/16/18 09/16/18 History neb] Allergies Allergy/AdvReac Type Severity Reaction Status Date / Time shellfish derived Allergy Severe SWELLING Verified 09/16/18 06:20 [From SHELLFISH (FOOD/DRUG)] azithromycin [From ZITHROMAX] Allergy Unknown Verified 09/16/18 06:20 doxycycline [DOXYCYCLINE] Allergy Unknown Verified 09/16/18 06:20 ibuprofen [From MOTRIN] Allergy Unknown Verified 09/16/18 06:20 terbutaline [TERBUTALINE] Allergy Unknown Verified 09/16/18 06:20 From SHELLFISH (FOOD/DRUG) Allergy Severe SWELLING Uncoded 03/28/18 15:29 Exam Vital signs and Labs for Last 24 Hours: Temp Pulse Resp BP Pulse Ox 100.1 F H 104 H 24 142/83 H 97 09/16/18 05:51 09/16/18 05:51 09/16/18 05:51 09/16/18 05:51 09/16/18 05:51 Laboratory Results - last 24 hr 09/16/18 05:57: POC Glucose 205 H 09/16/18 06:05: WBC 19.0 H, RBC 4.30, Hgb 12.9, Hct 38.0, MCV 88.3, MCH 30.0, MCHC 34.0, RDW 14.1, Plt Count 236, MPV 9.0, Neut % (Auto) 84.8 H, Lymph % (Auto) 10.6, [place] % (Auto) 4.4, Eos % (Auto) 0.0 L, Baso % (Auto) 0.1, Neut # (Auto) 16.1 H, Lymph # (Auto) 2.0, [place] # (Auto) 0.8, Eos # (Auto) 0.0, Baso # (Auto) 0.0, Total Counted 100, Neutrophils % (Manual) 86 H, Lymphocytes % (Manual) 10, Monocytes % (Manual) 4, Platelet Estimate Normal, RBC Morphology Normal, ESR > 120 H 09/16/18 06:05: Sodium 130 L, Potassium 3.3 L, Chloride 94 L, Carbon Dioxide 22, Anion Gap 17.3 H, BUN 31 H, Creatinine 1.51 H, Estimated Creat Clear 60, Estimated GFR 36 L, Est GFR ( Amer) 43 L, Glucose 214 H, Calcium 8.6, Total Bilirubin 1.0, AST 9 L, ALT 21, Alkaline Phosphatase 96, C-Reactive Protein 36.0 H, Total Protein 7.6, Albumin 2.5 L, Globulin 5.1 H, Albumin/Globulin Ratio 0.5 L, Amylase 18 L, Lipase 81 09/16/18 06:05: Lactate 1.5 09/16/18 06:05: Influenza Type A Ag Negative, Influenza Type B Ag Negative 09/16/18 06:05: Group A Strep Rapid Negative 09/16/18 06:05: Troponin I < 0.02 09/16/18 06:50: Urine Color Dk yellow, Urine Appearance Clear, Urine pH 5.5, Ur Specific [place] 1.025, Urine Protein 2+, Urine Glucose (UA) Negative, Urine Ketones Trace, Urine Blood 2+, Urine Nitrate Negative, Urine Bilirubin Negative, Urine Urobilinogen 0.2, Ur Leukocyte Esterase 1+ A, Urine RBC 5-10, Urine WBC 5-10, Ur Squamous Epith Cells 10-20, Urine Bacteria 4+ I & O for Last 24 hours: Intake & Output 09/13/18 09/14/18 09/15/18 09/16/18 11:59 11:59 11:59 11:59 Weight 200 lb Narrative: Patient is sitting in a wheelchair. She is conversant. She is oriented to person and place but not day of the week but is easily corrected. Oropharynx is dry. Lips are dry. Neck is without lymphadenopathy. Lungs are distant but clear. Heart has a regular rate and rhythm. Abdomen is obese and soft with mild right lower quadrant tenderness to palpation. Musculoskeletal exam reveals diffuse weakness of all muscle groups tested with 4 out of 5 strength of new accounts clerk, hip flexion, plantar flexion of the extremities. There is no sensory deficit. Motor function is intact of the extremities. Assessment and Plan (1) Diarrhea Current visit: Yes Status: Acute Qualifiers: Diarrhea type: unspecified type Qualified Code(s): R19.7 - Diarrhea, unspecified Category: Medical Code(s): R19.7 - Diarrhea, unspecified (2) Leukocytosis Current visit: Yes Status: Acute Qualifiers: Leukocytosis type: unspecified Qualified Code(s): D72.829 - Elevated white blood cell count, unspecified Category: Medical Code(s): D72.829 - Elevated white blood cell count, unspecified (3) Weakness Current visit: Yes Status: Acute Category: Medical Code(s): R53.1 - Weakness - Assessment and plan all Dx Assessment and Plan for all problems:: Patient will be admitted for IV fluids and observation. She will take her regular home medications. Plan for repeat CBC in a.m.
--- NOTE | 2018-09-16 08:52 | Pharmacy Consult Notes ---
[facility] Pharmacy VTE Monitoring - Patient Demographics Admission date: 09/16/18 Report Date: 09/16/18 Time: 08:52 Allergies/Adverse Reactions: Patient Allergies shellfish derived [From SHELLFISH (FOOD/DRUG)] Allergy (Severe, Verified 09/16/18 06:20) SWELLING azithromycin [From ZITHROMAX] Allergy (Unknown, Verified 09/16/18 06:20) doxycycline [DOXYCYCLINE] Allergy (Unknown, Verified 09/16/18 06:20) ibuprofen [From MOTRIN] Allergy (Unknown, Verified 09/16/18 06:20) terbutaline [TERBUTALINE] Allergy (Unknown, Verified 09/16/18 06:20) From SHELLFISH (FOOD/DRUG) Allergy (Severe, Uncoded 03/28/18 15:29) SWELLING Height: 1.65 m Weight: 94.347 kg Patient Problems: Current Active Problems Weakness (Acute) Diarrhea (Acute) Leukocytosis (Acute) Renal insufficiency (Acute) Diabetes mellitus, insulin dependent (IDDM), uncontrolled (Acute) Obesity (BMI 30.0-34.9) (Acute) Elevated erythrocyte sedimentation rate (Acute) - VTE Risk Labs: VTE Related Lab Results Hgb 12.9 g/dL (12.2-16.2) 09/16/18 06:05 Hct 38.0 % (37.0-47.0) 09/16/18 06:05 Plt Count 236 K/mm3 (142-424) 09/16/18 06:05 BUN 31 mg/dL (7-18) H 09/16/18 06:05 Creatinine 1.51 mg/dL (0.55-1.02) H 09/16/18 06:05 Estimated Creat Clear 60 mL/min (50-200) 09/16/18 06:05 VTE Score: 4 VTE Risk Level: Low Risk - Prophylaxis VTE Prophylaxis Ordered?: Yes Types of VTE Prophylaxis: TEDS Knee High Location of Applied Device: Bilateral Lower Extremeties - VTE Diagnosis Confirmed Treatment or plan recommended: Continue Current Treatment
[2018-09-17 06:32] LABS: Basophils % 0.1 % (0.1-2.0); Eosinophils % 0.1 % (0.1-12.0); Hematocrit 33.3 % (37.0-47.0); Lymphocytes # 1.6 K/mm3 (0.7-4.5); Lymphocytes % 15.7 % (10-50); Mean Corpuscular HGB Conc 32.6 g/dL (31.8-35.4); Mean Corpuscular Hemoglobin 29.3 pg (27.0-31.2); Mean Platelet Volume 9.2 fl (7.4-10.4); Monocytes # 0.6 K/mm3 (0.1-1.0); Monocytes % 5.6 % (1.7-9.3); Neutrophils # 8.2 K/mm3 (1.8-7.8); Neutrophils % 78.6 % (37.0-80.0); Platelet Count 162 K/mm3 (142-424); White Blood Count 10.4 K/mm3 (4.8-10.8)
[2018-09-17 07:19] LABS: Anion Gap 12.4 mEq/L (5-15); Potassium 3.4 mmoL/L (3.5-5.1)
[2018-09-17 07:21] LABS: Hemoglobin 10.8 g/dL (12.2-16.2)
[2018-09-17 07:27] LABS: Calcium 7.4 mg/dL (8.5-10.1)
--- NOTE | 2018-09-17 07:44 | Progress Note ---
Internal Medicine - PN: Subj *Date: 09/17/18 *Time: 07:42 Interval history: After admission yesterday patient had multiple watery stools. Diarrhea panel was negative. She developed fevers as high as 103 degrees and her blood cultures returned with a preliminary result of E. coli. Patient had Rocephin 1 g intravenously yesterday evening. She is continued to have fevers throughout the night. She has been given Tylenol and ice packs to help defervesce. Exam Vital signs and Labs for Last 24 Hours: Temp Pulse Resp BP Pulse Ox 101.0 F H 111 H 20 118/62 92 L 09/17/18 04:00 09/17/18 04:00 09/17/18 04:00 09/17/18 04:00 09/17/18 04:00 Laboratory Results - last 24 hr 09/16/18 07:55: Stl Aeromonas (PCR) Not detected, Stl C. cayetanensis PCR Not detected, Stool Rotavirus (PCR) Not detected, Stl Adenov F 40/41 PCR Not detected, Stool Astrovirus (PCR) Not detected, Stool Campylobacter PCR Not detected, Stl C.difficile Tox PCR Not detected, Stool Cryptosporidium PCR Not detected, Stl E.coli Shiga Tox PCR Not detected, Stool E coli O157 PCR Not detected, Stl Enterotoxigenic E PCR Not detected, Stool EPEC (PCR) Not detected, Stool EAEC (PCR) Not detected, Stl E. histolytica PCR Not detected, Stool Giardia Lamblia PCR Not detected, Stool Salmonella PCR Not detected, Stool Sapovirus (PCR) Not detected, Stl P. shigelloides PCR Not detected, Stl Shigella/EIEC PCR Not detected, St Y.enterocolitica PCR Not detected, Stool Vibrio (PCR) Not detected, Stl Vibrio cholerae PCR Not detected, Stl Norovirus GI/GII PCR Not detected 09/16/18 12:57: POC Glucose 192 H 09/16/18 16:47: POC Glucose 176 H 09/16/18 21:38: POC Glucose 217 H 09/17/18 05:35: WBC 10.4 D, RBC 3.70 L, Hgb 10.8 L D, Hct 33.3 L, MCV 90.0, MCH 29.3, MCHC 32.6, RDW 14.0, Plt Count 162 D, MPV 9.2, Neut % (Auto) 78.6, Lymph % (Auto) 15.7, [place] % (Auto) 5.6, Eos % (Auto) 0.1, Baso % (Auto) 0.1, Neut # (Auto) 8.2 H, Lymph # (Auto) 1.6, [place] # (Auto) 0.6, Eos # (Auto) 0.0, Baso # (Auto) 0.0 09/17/18 05:35: Sodium 135 L, Potassium 3.4 L, Chloride 101, Carbon Dioxide 25, Anion Gap 12.4, BUN 30 H, Creatinine 1.13 H D, Estimated Creat Clear 83, Estimated GFR 50 L, Est GFR ( Amer) 60 D, Glucose 194 H, Calcium 7.4 L D , Magnesium 1.8 09/17/18 05:50: POC Glucose 188 H I & O for Last 24 hours: Intake & Output 09/14/18 09/15/18 09/16/18 09/17/18 11:59 11:59 11:59 11:59 Intake Total 1440 / 1440 360 / 360 Output Total 450 / 450 200 / 200 Balance 990 / 990 160 / 160 Weight 208 lb 207 lb 8 oz Microbiology Reports for the Last 24 Hours: Microbiology 09/16/18 06:50 Urine,Clean Catch Urine Culture - Preliminary NO GROWTH AFTER 24 HOURS 09/16/18 06:05 Blood Blood Culture - Preliminary 09/16/18 06:05 Blood Blood Culture - Preliminary Narrative: Patient appears comfortable this morning and in no distress. Oropharynx is moist. Neck is without lymphadenopathy. Lungs are clear. Heart has a regular rate and rhythm. Abdomen is soft with some mild right lower quadrant tenderness to palpation Assessment and Plan (1) E coli bacteremia Current visit: Yes Status: Acute Category: Medical Code(s): R78.81 - Bacteremia Continue IV Rocephin. Await finalized blood culture results. (2) Diarrhea Current visit: Yes Status: Acute Qualifiers: Diarrhea type: unspecified type Qualified Code(s): R19.7 - Diarrhea, unspecified Category: Medical Code(s): R19.7 - Diarrhea, unspecified Diarrhea has improved with addition of Imodium (3) Leukocytosis Current visit: Yes Status: Acute Qualifiers: Leukocytosis type: unspecified Qualified Code(s): D72.829 - Elevated white blood cell count, unspecified Category: Medical Code(s): D72.829 - Elevated white blood cell count, unspecified (4) Weakness Current visit: Yes Status: Acute Category: Medical Code(s): R53.1 - Weakness
--- NOTE | 2018-09-18 06:54 | Progress Note ---
Internal Medicine - PN: Subj *Date: 09/18/18 *Time: 06:51 Interval history: Patient with no complaints this morning. She had an episode overnight lasting 2-3 seconds when she went to the bathroom she coughed followed by the 3-second episode of chest pain that radiated across her chest and down her arms. She was then able to return to bed. She did not feel like her underlying COPD was the cause of any of her chest pain. An EKG was performed and reviewed by the ER physician which was unchanged from admission. Exam Vital signs and Labs for Last 24 Hours: Temp Pulse Resp BP Pulse Ox 99.0 F 98 H 22 148/76 H 97 09/18/18 04:00 09/18/18 04:00 09/18/18 04:00 09/18/18 04:00 09/18/18 04:00 Laboratory Results - last 24 hr 09/17/18 05:35: WBC 10.4 D, RBC 3.70 L, Hgb 10.8 L D, Hct 33.3 L, MCV 90.0, MCH 29.3, MCHC 32.6, RDW 14.0, Plt Count 162 D, MPV 9.2, Neut % (Auto) 78.6, Lymph % (Auto) 15.7, [place] % (Auto) 5.6, Eos % (Auto) 0.1, Baso % (Auto) 0.1, Neut # (Auto) 8.2 H, Lymph # (Auto) 1.6, [place] # (Auto) 0.6, Eos # (Auto) 0.0, Baso # (Auto) 0.0 09/17/18 05:35: Sodium 135 L, Potassium 3.4 L, Chloride 101, Carbon Dioxide 25, Anion Gap 12.4, BUN 30 H, Creatinine 1.13 H D, Estimated Creat Clear 83, Estimated GFR 50 L, Est GFR ( Amer) 60 D, Glucose 194 H, Calcium 7.4 L D , Magnesium 1.8 09/17/18 05:50: POC Glucose 188 H 09/17/18 11:38: POC Glucose 167 H 09/17/18 17:04: POC Glucose 171 H 09/17/18 20:12: POC Glucose 237 H I & O for Last 24 hours: Intake & Output 09/15/18 09/16/18 09/17/1809/18/19 11:59 11:59 11:59 12:59 Intake Total 1440 / 1440 480 / 480 360 / 360 Output Total 450 / 450 200 / 200 400 / 400 Balance 990 / 990 280 / 280 -40 / -40 Weight 208 lb 207 lb 8 oz Microbiology Reports for the Last 24 Hours: Microbiology 09/16/18 06:05 Blood Blood Culture - Preliminary Escherichia coli 09/16/18 06:05 Blood Blood Culture - Final Escherichia coli 09/16/18 06:05 Throat Group A Streptococcus Screen (GURDEEP) - Final Negative for Group A Streptococcus. 09/16/18 06:50 Urine,Clean Catch Urine Culture - Final Multiple organisms, suggests contamination. Narrative: Patient is in no distress. Lungs remain distant but clear. Heart has a regular rate and rhythm. Abdomen is soft. Assessment and Plan (1) E coli bacteremia Current visit: Yes Status: Acute Category: Medical Code(s): R78.81 - Bacteremia (2) Diarrhea Current visit: Yes Status: Acute Qualifiers: Diarrhea type: unspecified type Qualified Code(s): R19.7 - Diarrhea, unspecified Category: Medical Code(s): R19.7 - Diarrhea, unspecified (3) Leukocytosis Current visit: Yes Status: Acute Qualifiers: Leukocytosis type: unspecified Qualified Code(s): D72.829 - Elevated white blood cell count, unspecified Category: Medical Code(s): D72.829 - Elevated white blood cell count, unspecified (4) Weakness Current visit: Yes Status: Acute Category: Medical Code(s): R53.1 - Weakness - Assessment and plan all Dx Assessment and Plan for all problems:: Await finalization of blood cultures. Anticipate continuing Rocephin infusions daily until September 22. Patient will be given Lasix 20 mg IV this morning as she is likely a little fluid overloaded from 48 hours of IV fluids
--- NOTE | 2018-09-18 06:55 | Discharge Summary ---
General - General Admission date:: 09/17/18 Discharge date: 09/18/18 HPI HPI: 57-year-old female with history of TIA presented to the emergency department this morning because she thought she was having a stroke. Patient associated the symptom of chills with having a stroke because she now recalls that with her previous TIA she had chills. Apparently when the patient awoke this morning she was confused and had been having chills for the last 2 days at least. Family has also suspected she has been having fevers and she did have a low-grade fever on presentation to the emergency department. Patient also reports diarrhea all week long. She has vomited a single time. She has not had unilateral weakness or sensory loss. Workup was begun in the emergency department which did reveal an elevated white blood cell count with left shift but no new abnormality on CT scan of the head, abdomen, pelvis. Hospital Course Hospital Course: Patient was admitted for observation initially and placed on IV fluids. As the initial day of admission progressed patient developed diffuse watery diarrhea. Diarrhea panel was negative. Fevers developed as well as high as 103. Urine was slightly abnormal on admission and once fevers develop decision was made to start Rocephin 1 g intravenously. Shortly thereafter that decision on the day of admission there was a preliminary reading on her blood cultures of a gram- negative leighton. Patient was continued on Rocephin in between the morning of September 17 and September 18 patient was able to remain fever free. Patient's diffuse weakness improved. Her diarrhea improved. Urine culture was negative. Once blood cultures were finalized and grew out E. coli the patient was discharged home. She will return daily for IV infusions of Rocephin until September 22. Patient will follow-up in my office on the afternoon of September 22 Objective Vital signs: Temp Pulse Resp BP Pulse Ox 99.0 F 98 H 22 148/76 H 97 09/18/18 04:00 09/18/18 04:00 09/18/18 04:00 09/18/18 04:00 09/18/18 04:00 Results Labs on day of discharge: Labs from last 24 hours 09/17/18 09/17/18 09/17/18 20:12 17:04 11:38 WBC RBC Hgb Hct MCV MCH MCHC RDW Plt Count MPV Neut % (Auto) Lymph % (Auto) [place] % (Auto) Eos % (Auto) Baso % (Auto) Neut # (Auto) Lymph # (Auto) [place] # (Auto) Eos # (Auto) Baso # (Auto) Sodium Potassium Chloride Carbon Dioxide Anion Gap BUN Creatinine Estimated Creat Clear Estimated GFR Est GFR ( Amer) Glucose POC Glucose 237 H 171 H 167 H Calcium Magnesium 09/17/18 09/17/18 09/17/18 05:50 05:35 05:35 WBC 10.4 D RBC 3.70 L Hgb 10.8 L D Hct 33.3 L MCV 90.0 MCH 29.3 MCHC 32.6 RDW 14.0 Plt Count 162 D MPV 9.2 Neut % (Auto) 78.6 Lymph % (Auto) 15.7 [place] % (Auto) 5.6 Eos % (Auto) 0.1 Baso % (Auto) 0.1 Neut # (Auto) 8.2 H Lymph # (Auto) 1.6 [place] # (Auto) 0.6 Eos # (Auto) 0.0 Baso # (Auto) 0.0 Sodium 135 L Potassium 3.4 L Chloride 101 Carbon Dioxide 25 Anion Gap 12.4 BUN 30 H Creatinine 1.13 H D Estimated Creat Clear 83 Estimated GFR 50 L Est GFR ( Amer) 60 D Glucose 194 H POC Glucose 188 H Calcium 7.4 L D Magnesium 1.8 Preliminary micro results at discharge 09/16/18 06:05 Blood Culture - Preliminary Blood Escherichia coli DS: Diagnosis - Discharge Diagnosis (1) E coli bacteremia Status: Acute (2) Diarrhea Status: Acute (3) Leukocytosis Status: Acute (4) Weakness Status: Acute Discharge Plan - Patient Discharge Instructions ACTIVITY: Continue current activity DIET: continue same diet Patient Instructions: Type 2 Diabetes, DI for Leukocytosis - Follow up Plan Follow up with: Matthew Ramesh MD [Primary Care Provider] - 09/22/18 2:00 pm Disposition: Home, Self-Shelter Medications: Home Medications Medication Instructions Recorded Confirmed Type RX: Aspirin [Aspir 81] 81 mg PO DAILY 09/02/17 09/16/18 History RX: Citalopram Hydrobromide 20 mg PO DAILY 09/02/17 09/16/18 History [Celexa] RX: Gabapentin [Gabapentin 300mg 300 mg PO TID 09/02/17 09/16/18 History Cap] RX: Insulin Degludec [Tresiba 86 unit SQ DAILY 09/02/17 09/16/18 History Flextouch U-100] RX: Montelukast Sodium 10 mg PO HS 09/02/17 09/16/18 History [Montelukast 10mg Tab] RX: Hydrocodone/Acetaminophen 1 each PO QID PRN 09/03/17 09/16/18 History [Hydrocodone-Acetamin 10-325 mg] RX: Albuterol Sulfate [Albuterol 1 - 2 puffs IH Q4-6H PRN 09/16/18 09/16/18 History HFA Inhaler] RX: Cyclobenzaprine HCl 5 mg PO TIDP PRN 09/16/18 09/16/18 History [Cyclobenzaprine 5mg Tab] RX: Metoclopramide HCl [Reglan 5mg 5 mg PO AC 09/16/18 09/16/18 History Tablet] RX: Umeclidinium Harmony [Incruse 1 puff IH DAILY 09/16/18 09/16/18 History Ellipta] RX: Varenicline Tartrate [Chantix 1 mg PO BID 09/16/18 09/16/18 History 1mg tablet] RX: Metformin HCl 1,000 mg PO BID 09/17/18 09/17/18 History RX: Ceftriaxone Sodium [Rocephin 1 gm IV Q24H vial 09/18/18 Rx 1gm vial] Prescriptions/Medication Reconciliation: New RX: Ceftriaxone Sodium [Rocephin 1gm vial] 1 gm IV Q24H vial Continue RX: Montelukast Sodium [Montelukast 10mg Tab] 10 mg PO HS RX: Aspirin [Aspir 81] 81 mg PO DAILY RX: Insulin Degludec [Tresiba Flextouch U-100] 86 unit SQ DAILY RX: Hydrocodone/Acetaminophen [Hydrocodone-Acetamin 10-325 mg] 1 each PO QID PRN PRN Reason: PAIN RX: Albuterol Sulfate [Albuterol HFA Inhaler] 1 - 2 puffs IH Q4-6H PRN PRN Reason: Shortness Of Breath Or Wheezing RX: Metoclopramide HCl [Reglan 5mg Tablet] 5 mg PO AC RX: Cyclobenzaprine HCl [Cyclobenzaprine 5mg Tab] 5 mg PO TIDP PRN PRN Reason: muscle spasms RX: Metformin HCl 1,000 mg PO BID RX: Gabapentin [Gabapentin 300mg Cap] 300 mg PO TID RX: Citalopram Hydrobromide [Celexa] 20 mg PO DAILY RX: Umeclidinium Harmony [Incruse Ellipta] 1 puff IH DAILY RX: Varenicline Tartrate [Chantix 1mg tablet] 1 mg PO BID
== END 2018-09-18 18:40 | disposition home or self-care (01) | DRG 869 ==
LOC: 2ND 05:51 → ER 05:51 → 2ND 08:19
PROVIDERS: ADMIT Family Medicine; ATTEND Family Medicine
CPT/HCPCS: 36415; 70450; 71010; 71045; 74176; 80048; 80053; 81001; 82150; 82962; 83605; 83690; 83735; 84484; 85007; 85025; 85651; 86140; 87040; 87077; 87086; 87186; 87275; 87276; 87430; 87507; 93005; 96365; 99284; G0378

== ENCOUNTER 2018-09-19 12:08 | Outpatient (CLI) | payer MEDICARE, MEDICAID, SELFPAY ==
[2018-09-19 12:30] VITALS: BP 125/61; PULSE 80; RESP 16; TEMP 36.4; O2SAT 96
[2018-09-19 13:15] VITALS: BP 120/72; PULSE 84; RESP 18
== END 2018-09-19 13:15 | disposition home or self-care (01) ==
LOC: INF 12:08
PROVIDERS: Visit Provider Family Medicine
DX: R78.81 Bacteremia (principal); B96.20 Unspecified Escherichia coli [E. coli] as the cause of diseases classified elsewhere
CPT/HCPCS: 96365

== ENCOUNTER 2018-09-20 10:37 | Outpatient (CLI) | payer MEDICARE, MEDICAID, SELFPAY ==
[2018-09-20 10:49] VITALS: BP 130/71; PULSE 74; RESP 18; TEMP 36.4; O2SAT 98
[2018-09-20 11:19] VITALS: BP 125/76; PULSE 71; RESP 18; O2SAT 97
[2018-09-20 11:35] VITALS: BP 131/77; PULSE 75; RESP 18; O2SAT 97
== END 2018-09-20 11:40 | disposition home or self-care (01) ==
LOC: INF 10:37
PROVIDERS: Visit Provider Family Medicine
DX: R78.81 Bacteremia (principal); B96.20 Unspecified Escherichia coli [E. coli] as the cause of diseases classified elsewhere
CPT/HCPCS: 96365

== ENCOUNTER 2018-09-21 10:02 | Outpatient (CLI) | payer MEDICARE, MEDICAID, SELFPAY ==
[2018-09-21 10:10] VITALS: BP 140/72; PULSE 81; RESP 18; TEMP 36.6; O2SAT 98
[2018-09-21 10:40] VITALS: BP 138/74; PULSE 84; RESP 18; O2SAT 97
[2018-09-21 11:11] VITALS: BP 135/76; PULSE 82; RESP 18; O2SAT 97
== END 2018-09-21 11:11 | disposition home or self-care (01) ==
LOC: INF 10:02
PROVIDERS: Visit Provider Family Medicine
DX: R78.81 Bacteremia (principal); B96.20 Unspecified Escherichia coli [E. coli] as the cause of diseases classified elsewhere
CPT/HCPCS: 96365

== ENCOUNTER 2018-09-22 09:45 | Outpatient (CLI) | payer MEDICARE, MEDICAID, SELFPAY ==
[2018-09-22 09:35] VITALS: BP 152/70; PULSE 71; RESP 18; TEMP 36.4; O2SAT 95
[2018-09-22 09:54] VITALS: BMI 34.4
[2018-09-22 10:00] VITALS: BP 146/69; PULSE 82; RESP 18; TEMP 36.4; O2SAT 94
[2018-09-22 10:40] VITALS: BP 146/69; PULSE 76; RESP 20; TEMP 36.4; O2SAT 94
== END 2018-09-22 10:40 | disposition home or self-care (01) ==
LOC: INF 09:45
PROVIDERS: Visit Provider Family Medicine
DX: R78.81 Bacteremia (principal); B96.20 Unspecified Escherichia coli [E. coli] as the cause of diseases classified elsewhere
CPT/HCPCS: 96365

== ENCOUNTER → 2020-05-06 10:19 | Outpatient (CLI) | payer MEDICARE, MEDICAID, SELFPAY ==
--- NOTE | 2020-05-06 10:24 | XR_ITS ---
PROCEDURE: XR HAND RT MIN 3V CLINICAL INDICATION: RT HAND PAIN COMPARISON: No exams were available for comparison FINDINGS: No fracture or dislocation. No lytic or blastic change. There is some minimal periarticular calcifications noted at the 3rd metacarpophalangeal joint and 5th metacarpophalangeal joint radially and at the 3rd DIP joint radially. These are of questionable clinical significance. No significant degenerative change. IMPRESSION: No acute findings. Dictated by: Lambert Serrato MD 05/06/2020 10:38 Lambert Serrato MD in [place] 05/06/2020 10:38
== END ==
PROVIDERS: PCP Family Medicine; Visit Provider Family Medicine
DX: M79.641 Pain in right hand (principal)
CPT/HCPCS: 73130

== ENCOUNTER → 2021-04-14 10:19 | Outpatient (CLI) | payer MEDICARE, MEDICAID, SELFPAY ==
--- NOTE | 2021-04-14 10:28 | XR_ITS ---
PROCEDURE: XR SHOULDER LT MIN 2V CLINICAL INDICATION: LT SHOULDER PAIN COMPARISON: DX SHOULDCMRT XR shoulder RT min 2V from 09/23/2017 FINDINGS: Moderate osteoarthritic changes are present with decrease in the acromial humeral space. There is some spurring along the superior aspect the humeral head at the greater tuberosity. There is acromioclavicular arthropathy with spurring with subacromial stenosis. No fracture or dislocation. No lytic or blastic change. IMPRESSION: Osteoarthritis with subacromial stenosis Dictated by: Lambert Serrato MD 04/14/2021 18:10 Lambert Serrato MD in [place] 04/14/2021 18:10
== END ==
PROVIDERS: PCP Family Medicine; Visit Provider Family Medicine
DX: M25.512 Pain in left shoulder (principal); E11.49 Type 2 diabetes mellitus with other diabetic neurological complication
CPT/HCPCS: 73030

== ENCOUNTER → 2021-04-18 13:24 | Outpatient (CLI) | payer MEDICARE, MEDICAID, SELFPAY ==
--- NOTE | 2021-04-18 13:27 | XR_ITS ---
PROCEDURE: XR WRIST RT MIN 3V CLINICAL INDICATION: BL wrist pain COMPARISON: No exams were available for comparison FINDINGS: The carpal bones all appear intact. There is mild narrowing of the 1st carpometacarpal joint. The distal radius and ulna appear normal. Soft tissues are normal. IMPRESSION: Minor osteoarthritic change base of thumb otherwise negative right wrist Dictated by: Dr. Eder Nieves MD 04/18/2021 14:32 Dr. Eder Nieves MD in [place] 04/18/2021 14:32
--- NOTE | 2021-04-18 13:27 | XR_ITS ---
PROCEDURE: XR WRIST LT MIN 3V CLINICAL INDICATION: BL wrist pain COMPARISON: No exams were available for comparison FINDINGS: The distal radius and ulna appear intact. The carpal bones all appear normal. The soft tissues are normal. IMPRESSION: No acute findings. Dictated by: Dr. Eder Nieves MD 04/18/2021 14:33 Dr. Eder Nieves MD in [place] 04/18/2021 14:33
== END ==
PROVIDERS: PCP Family Medicine; Visit Provider Orthopaedic Surgery
DX: M25.531 Pain in right wrist (principal); M25.532 Pain in left wrist
CPT/HCPCS: 73110

== ENCOUNTER → 2021-05-06 07:48 | Outpatient (CLI) | payer MEDICARE, MEDICAID, SELFPAY ==
--- NOTE | 2021-05-06 07:48 | MR_ITS ---
PROCEDURE INFORMATION: Exam: MR Left Upper Extremity Joint Without Contrast; Shoulder Exam date and time: 05/06/2021 7:48 AM Age: 60 years old Clinical indication: Pain; Shoulder; Left; Additional info: Lt shoulder pain. Unable to raise arm. Limited rom. Shoulder pain [id number]. No injury or trauma. Prior x-ray 04-14-21 TECHNIQUE: Imaging protocol: MR of the Left upper extremity without contrast. Exam focused on the shoulder. COMPARISON: CR XR SHOULDER LT MIN 2V 04/14/2021 10:34 AM FINDINGS: Limitations: Body habitus. Motion artifact. Bones and cartilage: There is no acute fracture or dislocation. No aggressive bone lesions are present. Joint spaces: A normal amount of fluid is present in the glenohumeral joint. There is moderate primary osteoarthritis of the acromioclavicular joint. Hypertrophic bone at the acromioclavicular joint abuts the supraspinatus musculotendinous junction. Glenoid labrum: Unremarkable. No evidence of tear. Bursae: A mild amount of fluid is present in the subacromial-subdeltoid bursa. Supraspinatus tendon: Moderate tendinosis involves the supraspinatus tendon. Infraspinatus tendon: No tear or significant tendinosis involves the infraspinatus tendon. Subscapularis tendon: No tear or significant tendinosis involves the subscapularis tendon. Teres minor tendon: No tear or significant tendinosis involves the teres minor tendon. Tendon of biceps brachii: The long head of the biceps tendon is normally situated within the bicipital groove. Glenohumeral ligaments: Unremarkable. Muscles: Unremarkable. Soft tissues: Unremarkable. IMPRESSION: 1. Moderate supraspinatus tendinosis. 2. Moderate primary osteoarthritis of the acromioclavicular joint with hypertrophic bone abutting the supraspinatus musculotendinous junction, which may contribute to impingement. 3. Mild subacromial-subdeltoid bursitis.
== END ==
PROVIDERS: PCP Family Medicine; Visit Provider Orthopaedic Surgery
DX: M19.012 Primary osteoarthritis, left shoulder (principal)
CPT/HCPCS: 73221

== ENCOUNTER → 2021-06-13 11:02 | Outpatient (CLI) | payer MEDICARE, MEDICAID, SELFPAY ==
--- NOTE | 2021-06-13 11:07 | XR_ITS ---
PROCEDURE: XR CHEST 2V CLINICAL HISTORY: Smoker; pre-op COMPARISON: CR CXR2V XR chest 2V from 07/18/2018 CR CXR1VP XR chest portable from 09/16/2018 CR XR CHEST AP from 07/14/2019 FINDINGS: The cardiomediastinal silhouette and pulmonary vascularity are within normal limits. The lungs are clear without infiltrates, suspicious nodules, or pleural effusions. No acute bony abnormalities. IMPRESSION: No acute findings. Dictated by: Lambert Serrato MD 06/13/2021 14:24 Lambert Serrato MD in [place] 06/13/2021 14:24
== END ==
PROVIDERS: PCP Family Medicine; Visit Provider Orthopaedic Surgery
DX: G56.02 Carpal tunnel syndrome, left upper limb (principal); J18.9 Pneumonia, unspecified organism
CPT/HCPCS: 71046

== ENCOUNTER → 2021-06-18 12:43 | Outpatient (CLI) | payer MEDICARE, MEDICAID, SELFPAY | PROVIDERS: Visit Provider Orthopaedic Surgery | DX: Z01.818 Encounter for other preprocedural examination (principal); Z11.52 Encounter for screening for COVID-19; G56.01 Carpal tunnel syndrome, right upper limb | CPT/HCPCS: C9803; U0003; U0005 ==

== ENCOUNTER 2021-06-20 05:58 | Day surgery (SDC) | payer MEDICARE, MEDICAID, SELFPAY ==
[2021-06-16 14:43] VITALS: BMI 38.2
[2021-06-20 06:13] VITALS: BP 137/53; PULSE 82; RESP 22; TEMP 36.4; O2SAT 94
--- NOTE | 2021-06-20 07:22 | P.PN_ITS ---
[facility] Anesthesia Checklist - Patient Identification Patient Identification: Arm Band - Structural Data Admitted From: Home Planned Operative Procedure/s: Right CTR Consent for Planned Operative Procedure(s) Verified: Yes Verified Documents: Surgical Consent, History and Physical - NPO Status Verified Time NPO: 00:00 - Additional verifications Anesthesia Reactions: Yes (stated quits breathing) Hx Blood Transfusions: No Blood Transfusion Reaction: No - Airway Assessment C-Spine Mobility Assessed: Yes (mp2) TMJ Mobility Assessed: Yes Dentition: Edentulous - Neurological Assessment Level of Consciousness: Awake, Alert - Anesthesia Plan Anesthesia Risk discussed: Yes Anesthesia Plan: Verified ASA Class: III Anesthesia Type: MAC [facility] History I have reviewed the patient's past medical history: Yes Medical History: Reports:: Anxiety, Asthma, Chronic Obstructive Pulmonary Disease (COPD), Depression, Diabetes Mellitus Type 2, Gastroesophageal Reflux Disease(GERD), Migraine, Transient Ischemic Attacks (TIA) Denies:: Cancer, Diabetes Mellitus Type 1, Internal Pacemaker, MRSA, Seizures *Have you ever received a pneumonia vaccine?: Yes *Have you received a flu vaccine this season?: Yes Other Medical History: Reports: Arthritis, Hoarseness. Denies: Blood Transfusion Reaction Anesthesia experience/problems:: nac Laterality Cases: Right: ACL Repair, Bilateral: Arthroscopy Knee, Tonsillectomy Other Surgeries: Yes: Dilation and Curettage, Hysterectomy-Total. No: Pacemaker Amputation: No Fractures: No - *Social History Last grade of school completed: 11th or 12th Smoking Status: Current every day smoker Tobacco Type: cigarettes # Packs/Day (cigarettes): 1 Alcohol Intake: current Alcohol Intake Frequency:: holidays/special occasions only Substance Use Type: denies use *Occupational Status:: disabled Housing: house Household Members: children *Travel in the last 8 weeks: None - Psychiatric History Pschychiatric History:: Reports:: Anxiety, Depression Family Hx:: Anemia, Asthma, Bleeding Disorder, Cancer, Coronary Artery Disease, Diabetes, Hypertension, Kidney Disease, Stroke
[2021-06-20 07:40] VITALS: TEMP 43
[2021-06-20 08:05] VITALS: BP 143/75; PULSE 94; RESP 16; TEMP 36.8; O2SAT 89
--- NOTE | 2021-06-20 08:10 | HMH.OPNOTE ---
Date of procedure: 06/20/21 Pre-op Diagnosis:: right carpal tunnel release Post-op Diagnosis:: same Procedure performed:: right endoscopic carpal tunnel release [id number] Surgeon:: Dakota Burger JR, MD Anesthesia: MAC, local Estimated blood loss (mL): 3 Operative findings:: confirmed transverse carpal tunnel ligament release visually and via palpation Operative note:: 60-year-old female with right carpal tunnel syndrome. This had been confirmed via EMG. She had previously undergone left carpal tunnel release and had good results, was interested in contralateral intervention. I recommended right endoscopic carpal tunnel release. She was amenable with the plan. We discussed the risk and benefits of surgery. Risks included but were not limited to pain, bleeding, infection, damage to adjacent structures, need for further surgery, wound healing complications, loss of limb, . Patient expressed verbal consent and written consent was obtained for the above procedure. I made a transverse incision at the proximal wrist crease proximal to the transverse carpal ligament. I bluntly dissected through skin and subcutaneous tissue with care taken to avoid injuring the palmaris longus. I transected the fascia, inserted a dilating probe deep to the transverse carpal ligament and noted its depth distal to the transverse carpal ligament. I then inserted a cannula and scope, visualized the fibers of the transverse carpal ligament. I took to the distal aspect of the transverse carpal ligament to confirm its location, then with a curved blade under endoscopic visualization, transected the fibers of the transverse carpal ligament and noted that they retracted medially and laterally. I removed the cannula, achieved hemostasis, closed with Monocryl, Prineo and Dermabond. Tourniquet time (min): 29 Condition: stable Disposition: PACU Complications:: None
[2021-06-20 08:20] VITALS: BP 139/81; PULSE 92; RESP 16; O2SAT 90
--- NOTE | 2021-06-20 08:31 | HMH.ORTHPN ---
Subjective Date: 06/20/21 Time: 08:31 Interval history: This is to serve as an addendum to the previously dictated operative note. She has not had contralateral carpal tunnel release. But detail in the indications was incorrect. We will plan to see her back in 2 to 3 weeks for wound check. PN: Obj Ex Vital signs: Temp Pulse Resp BP Pulse Ox 98.2 F 92 H 16 139/81 90 L 06/20/21 08:05 06/20/21 08:20 06/20/21 08:20 06/20/21 08:20 06/20/21 08:20
[2021-06-20 08:35] VITALS: BP 107/61; PULSE 88; RESP 16; O2SAT 92
[2022-04-09 10:55] LABS: POC Glucose,Bedside 108 (70-110)
== END 2021-06-20 08:40 | disposition home or self-care (01) ==
LOC: OR 05:59
PROVIDERS: PCP Family Medicine; Visit Provider Orthopaedic Surgery
PROC: (CPT 64721; principal; 2021-06-20 07:00)
DX: G56.01 Carpal tunnel syndrome, right upper limb (principal)
CPT/HCPCS: 29848; 82962; 96374

== ENCOUNTER → 2021-07-24 08:24 | Outpatient (CLI) | payer MEDICARE, SELFPAY ==
--- NOTE | 2021-07-24 | US_ITS ---
FINAL REPORT CLINICAL HISTORY: CLAUDICATION BILATERAL,REST PAIN BILATERAL,SMOKER,DM FINDINGS: BILATERAL ANKLE BRACHIAL INDICES HISTORY: Claudication. Pressure indices are as follows are: RIGHT LOWER EXTREMITY Ankle brachial pressure index: 0.72 Toe brachial pressure index: 0.60 COMMENTS: Peripheral artery disease LEFT LOWER EXTREMITY Ankle brachial pressure index: 0.72 Toe brachial pressure index: 0.60 COMMENTS: Peripheral artery disease IMPRESSION: Moderate bilateral peripheral artery disease. Reviewed, Interpreted and Dictated by Juan Jose Mora III, MD Transcribed by Alice Lynn Authenticated by Juan Jose Mora III, MD on 07/24/2021 10:20:28 AM [facility]
== END ==
PROVIDERS: PCP Family Medicine; Visit Provider Family Medicine
DX: I73.9 Peripheral vascular disease, unspecified (principal); E11.40 Type 2 diabetes mellitus with diabetic neuropathy, unspecified; F17.210 Nicotine dependence, cigarettes, uncomplicated; Z79.4 Long term (current) use of insulin
CPT/HCPCS: 93923

== ENCOUNTER → 2021-09-03 07:54 | Outpatient (CLI) | payer MEDICARE, SELFPAY ==
--- NOTE | 2021-09-03 08:29 | CT_ITS ---
FINAL REPORT CLINICAL HISTORY: DISORDER CIRCULARTORY SYSTEM,AORTA 120 cc of isovue 370 100 cc of saline FINDINGS: Post contrast axial imaging of the aorta and bilateral lower extremity was obtained and reviewed. This study was performed with techniques to keep radiation doses as low as reasonably achievable (ALARA). Individualized dose reduction techniques using automated exposure control or adjustment of mA and/or kV according to the patient's size were employed. The lung bases are clear. There is mild fatty infiltration of the liver. The gallbladder is mildly distended. The spleen and pancreas are unremarkable. There is an indeterminate left adrenal mass measuring 2.2 cm in greatest dimension consistent with an adenoma. The right adrenal appears unremarkable. The kidneys appear unremarkable. There is dense vascular calcification within the iliac vessels bilaterally. Stenoses measures less than 50%. There is moderate vascular calcification and the external iliac arteries measuring less than 50%. RIGHT LEG: There is segmental occlusion of the proximal right superficial femoral artery. The occluded segment measures approximately 3 cm in length. There is extensive atherosclerotic calcification of the distal superficial femoral artery and adductor canal. There is approximately 70-80% stenosis of the adductor canal. The popliteal artery appears patent. There is 3 vessel runoff to the right foot. LEFT LEG: There is complete occlusion of the origin of the superficial femoral artery. There is extensive vascular calcification seen throughout the mid and distal superficial femoral artery. There is high-grade stenosis of the adductor canal. The popliteal artery is patent. There is three-vessel runoff to the left foot. The celiac axis and SMA are patent. The single renal arteries are patent. IMPRESSION: Less than 50% stenosis of the common iliac and external iliac arteries bilaterally. 3 cm segmental stenosis of the proximal right superficial femoral artery. Segmental occlusion of the origin of the left superficial femoral artery. High-grade stenoses within the adductor canals bilaterally. Reviewed, Interpreted and Dictated by Dell Dobson MD Transcribed by Josefa Carey Authenticated by Dell Dobson MD on 09/03/2021 01:13:02 PM [facility]
[2021-09-03 08:36] LABS: Blood Urea Nitrogen 14 mg/dl (7-17); Estimated Glomerular Filt Rate 64 ml/min (>60); GFR (African American) 78 ML/MIN (>60)
== END ==
PROVIDERS: PCP Family Medicine; Visit Provider Family Medicine
DX: I99.9 Unspecified disorder of circulatory system (principal)
CPT/HCPCS: 36415; 75635; 82565; 84520; Q9967

== ENCOUNTER → 2021-09-12 09:35 | Outpatient (CLI) | payer MEDICARE, SELFPAY ==
[2021-09-12 10:19] LABS: Basophils # 0.1 K/mm3 (0-0.2); Basophils % 1.3 % (0.1-2.0); Eosinophils # 0.2 K/mm3 (0.0-0.4); Eosinophils % 1.5 % (0.1-12.0); Hematocrit 53.3 % (37.0-47.0); Hemoglobin 16.5 g/dL (12.2-16.2); Lymphocytes # 2.7 K/mm3 (0.7-4.5); Lymphocytes % 24.5 % (10-50); Mean Corpuscular HGB Conc 30.9 g/dL (31.8-35.4); Mean Corpuscular Hemoglobin 29.7 pg (27.0-31.2); Mean Corpuscular Volume 96.2 fl (81-99); Mean Platelet Volume 9.3 fl (7.4-10.4); Monocytes # 0.4 K/mm3 (0.1-1.0); Neutrophils # 7.4 K/mm3 (1.8-7.8); Neutrophils % 68.7 % (37.0-80.0); Platelet Count 219 K/mm3 (142-424); Red Blood Count 5.54 M/mm3 (4.20-5.40); Red Cell Distribution Width 14.7 % (11.5-17.5); White Blood Count 10.8 K/mm3 (4.8-10.8)
[2021-09-12 10:54] LABS: Chloride 98 mmol/L (98-107); Potassium 4.9 mmoL/L (3.5-5.1); Sodium 135 mmol/L (136-145)
[2021-09-12 10:57] LABS: Anion Gap 8.9 mEq/L (5-15); Blood Urea Nitrogen 14 mg/dl (7-17); Calcium 8.6 mg/dl (8.4-10.2); Carbon Dioxide 33 mmol/L (22.0-30.0); Estimated Glomerular Filt Rate 73 ml/min (>60); GFR (African American) 89 ML/MIN (>60); Glucose 148 mg/dl (74-100)
== END ==
PROVIDERS: PCP Family Medicine; Visit Provider Internal Medicine Cardiovascular Disease
DX: I73.9 Peripheral vascular disease, unspecified (principal); R06.00 Dyspnea, unspecified; R07.9 Chest pain, unspecified; R68.89 Other general symptoms and signs; Z01.812 Encounter for preprocedural laboratory examination; Z11.52 Encounter for screening for COVID-19
CPT/HCPCS: 36415; 80048; 85025; C9803; U0003; U0005

== ENCOUNTER 2021-09-15 07:53 | Day surgery (SDC) | payer MEDICARE, SELFPAY ==
[2021-09-15] VITALS (13 sets, daily range): BP systolic 122–162; BP diastolic 45–89; PULSE 76–87; RESP 16–18; TEMP 36.5–36.8; O2SAT 91–96; BMI 40.1
--- NOTE | 2021-09-15 07:20 | IR_ITS ---
APPROVED REPORT Patient Location: Outpatient PROCEDURES Right radial arterial access Catheter placement in the right common iliac artery Right common iliac artery antegrade angiogram with unilateral runoff to the right foot Catheter placement in the left common iliac artery Left common iliac artery antegrade angiogram with unilateral runoff to the left foot Catheter placed into the distal abdominal aorta Distal abdominal aortogram INDICATION Abnormal PRISCILLA 0.7 bilaterally, [place] claudication class III, Peripheral artery disease Informed consent was obtained prior to the procedure. COMPLICATIONS NONE Estimated Blood Loss: LESS THAN 10 ML TECHNIQUE 1% lidocaine used anesthetize the right anterior aspect of the right wrist. The right radial artery was accessed via the Seldinger technique and a hydrophilic 6 Setswana sheath was placed in the right radial artery. An arterial cocktail using heparin lidocaine verapamil and nitroglycerin were administered intra-arterially. A PV multi curve was then placed under fluoroscopic guidance into the right common iliac artery where antegrade angiography was performed with unilateral runoff to the right foot. This procedure was repeated on the left common iliac artery. The catheter was then pulled back to the distal abdominal aorta and distal abdominal aortography was performed. At the end of the procedure the apparatus was removed the sheath was removed and hemostasis was achieved using TR banding patient was transferred the postop already in stable condition ANGIOGRAPHIC RESULTS Distal abdominal aorta is mildly atheromatous with 20% eccentric and concentric stenoses Right common iliac artery has mild 20 to 30% stenoses. The right internal iliac artery has an ostial 70% concentric stenosis while the right external iliac artery is widely patent. Right common femoral artery is normal. Right profunda femoris artery is normal Right superficial femoral artery has severe proximal eccentric disease creating a long 70 to 80% stenosis and is then subtotally occluded in the proximal segment and throughout the entire mid and distal segment. It then reconstitutes at Saman's canal into the right popliteal artery. The right popliteal artery has mild atheromatous plaque. The right anterior tibialis artery and peroneal arteries are both proximally occluded. There is single-vessel runoff from the posterior tibialis artery supplying the right foot. Distally the anterior tibialis artery reconstitutes via collaterals from the posterior tibialis artery and provide scant antegrade flow into the right foot Left common iliac artery is widely patent with mild atheromatous plaque approximately 10 to 20%. The left internal iliac artery has proximal long 70 to 80% stenoses but is patent. The left external iliac artery has proximal concentric 10 to 20% stenoses Left common femoral artery is normal Left profunda femoris artery is normal Left superficial femoral artery is ostially subtotally occluded and subtotally occluded throughout its entire proximal and mid vessel course. Distally there are scant collaterals which reconstitute the craig vessel while most collaterals anastomose into the mid popliteal artery which is widely patent. The left anterior tibialis artery is proximally subtotally occluded as is the peroneal artery. The posterior tibialis artery has severe diffuse disease throughout its proximal and mid vessel course but does supply antegrade flow into the left foot. The anterior tibialis artery does reconstitute distally and supplies scant flow into the left foot IMPRESSION Bilateral SFA subtotal occlusions throughout their entire course Single-vessel runof
--- NOTE | 2021-09-15 12:46 | SUR.PHASEII ---
1230- pt dressing with assistance from daughter. After dressed and seated in wc removed the radial splint and pressure dressing. No bleeding noted. Applied sterile 4x4 and tegaderm to site with pressure.
== END 2021-09-15 12:31 | disposition home or self-care (01) ==
LOC: CATHLAB 07:54
PROVIDERS: PCP Family Medicine; Visit Provider Internal Medicine
DX: E11.65 Type 2 diabetes mellitus with hyperglycemia (principal); E78.5 Hyperlipidemia, unspecified; F17.210 Nicotine dependence, cigarettes, uncomplicated; I10 Essential (primary) hypertension; I70.223 Atherosclerosis of native arteries of extremities with rest pain, bilateral legs; R07.9 Chest pain, unspecified; I77.1 Stricture of artery; Z79.4 Long term (current) use of insulin; R29.6 Repeated falls; G43.909 Migraine, unspecified, not intractable, without status migrainosus; Z79.899 Other long term (current) drug therapy; Z82.49 Family history of ischemic heart disease and other diseases of the circulatory system
CPT/HCPCS: 36247; 75716; 99152; C1725; C1769; J1644; Q9967

== ENCOUNTER → 2021-09-19 07:53 | Outpatient (CLI) | payer SELFPAY ==
--- NOTE | 2021-09-19 07:54 | CT_ITS ---
FINAL REPORT CLINICAL HISTORY: . CHEST PAIN FINDINGS: CT CORONARY CALCIUM SCORE W/O TECHNIQUE: Thin-section axial images were obtained through the heart and coronary arteries per CT coronary calcium score protocol. This study was performed with techniques to keep radiation doses as low as reasonably achievable (ALARA). Individualized dose reduction techniques using automated exposure control or adjustment of mA and/or kV according to the patient's size were employed. FINDINGS: On the axial images, there is calcification mostly within the right coronary artery. This gives a coronary artery calcium score of 161 based on the Agatston scale. This coronary artery calcium score places the patient within the 90th percentile based on age and gender. The heart size is normal. There is no pleural or pericardial effusion. Limited evaluation of the lungs reveal no suspicious nodule. There is calcified granuloma within the left lung base. IMPRESSION: Coronary artery calcium score 161 based on the Agatston scale. This places the patient within the 90th percentile based on age and gender.. Reviewed, Interpreted and Dictated by Juan Jose Mora III, MD Transcribed by Josiane Rivas Authenticated by Juan Jose Mora III, MD on 09/19/2021 09:53:55 AM [facility]
== END ==
PROVIDERS: PCP Family Medicine; Visit Provider Internal Medicine Cardiovascular Disease
DX: R07.9 Chest pain, unspecified (principal); I10 Essential (primary) hypertension; E10.65 Type 1 diabetes mellitus with hyperglycemia; E78.5 Hyperlipidemia, unspecified; F17.200 Nicotine dependence, unspecified, uncomplicated; I73.9 Peripheral vascular disease, unspecified; R06.00 Dyspnea, unspecified; R68.89 Other general symptoms and signs; R93.5 Abnormal findings on diagnostic imaging of other abdominal regions, including retroperitoneum
CPT/HCPCS: 75571

== ENCOUNTER → 2021-09-19 08:29 | Outpatient (CLI) | payer MEDICARE, MEDICAID, SELFPAY ==
--- NOTE | 2021-09-19 08:34 | CA_ITS ---
FINAL REPORT TECHNIQUE: Color Doppler, duplex Doppler and hightower scale sonography of the bilateral neck arterial vasculature was performed. Velocities were measured in the carotid arteries. Stenosis evaluation based on the validated velocity criteria. CLINICAL HISTORY: DIZZINESS,SMOKER FINDINGS: The peak systolic velocity of the right common carotid artery is 71 cm/s. The peak systolic velocity of the right internal carotid artery is 107 cm/s and end diastolic velocity 30 cm/s. The ICA/CCA ratio is 1.5. A mild to moderate amount of plaque is present. The right external carotid artery is patent. The right vertebral artery is patent with antegrade flow. The peak systolic velocity of the left common carotid artery is 97 cm/s. The peak systolic velocity of the left internal carotid artery is 153 cm/s and end diastolic velocity 43 cm/s. The ICA/CCA ratio is 1.6. A mild to moderate amount of plaque is present. The left external carotid artery is patent.The left vertebral artery is patent with antegrade flow. There is a 1.3 x 0.8 cm hypoechoic solid nodule in the right neck which may represent an enlarged lymph node or other mass. There is a small cyst in the left thyroid lobe. IMPRESSION: Less than 50% bilateral carotid stenosis. Bilateral patent vertebral arteries with antegrade flow. Hypoechoic solid nodule in the right neck which may represent an enlarged lymph node or other mass. If indicated, follow-up ultrasound or neck CT for further evaluation. Reviewed, Interpreted and Dictated by Juan Jose Mora III, MD Transcribed by Josiane Rivas Authenticated by Juan Jose Mora III, MD on 09/19/2021 09:57:46 AM [facility]
== END ==
PROVIDERS: PCP Family Medicine; Visit Provider Internal Medicine Cardiovascular Disease
DX: E10.65 Type 1 diabetes mellitus with hyperglycemia (principal); E78.5 Hyperlipidemia, unspecified; F17.200 Nicotine dependence, unspecified, uncomplicated; I10 Essential (primary) hypertension; I73.9 Peripheral vascular disease, unspecified; R06.00 Dyspnea, unspecified; R07.9 Chest pain, unspecified; R42 Dizziness and giddiness; R68.89 Other general symptoms and signs; R93.5 Abnormal findings on diagnostic imaging of other abdominal regions, including retroperitoneum; Z79.4 Long term (current) use of insulin
CPT/HCPCS: 93880

== ENCOUNTER → 2021-09-23 06:20 | Outpatient (CLI) | payer MEDICARE, MEDICAID, SELFPAY ==
--- NOTE | 2021-09-23 06:22 | CA_ITS ---
APPROVED REPORT EXAM: Comprehensive 2D, Doppler, and color-flow Echocardiogram Wharfmaster: Scarlett Felton, RT(R) Ht: 5 ft 5 in Wt: 241lbs BSA: 2.14 BP: 140/96 mmHg Indications: SOB, smoker, Diabetes mellitus, KNIGHT, ABN EKG, PAD, abn CTA Echo Enhancing Agent Indication: Endocardial border delineation Agent(s) / Amount(s) Used: Definity 2 cc 2D Dimensions LVOT 2.22 cm (M/F) 1.5-2.5 LVEF (Maldonado's) 51.60 % F: 54 - 74 LV Volume 118.80 mL F: 46 - 106 LV Volume Index 55.51 mL/m2 F: 29 - 61 M-Mode Dimensions RVDd 2.48 cm (0.9-2.6) LA Diam 3.25 cm (1.9-4.0) LVDd 5.53 cm (3.5-5.7) Ao Diam 3.44 cm (2.0-3.7) LVDs 4.88 cm (3.5-5.7) IVSd 1.17 cm (0.6-1.1) PWd 0.84 cm (0.6-1.1) EF (Teich) 25.20% FS 11.80% EDV (Teich) 149.30 mL ESV (Teich) 111.70 mL LV Diastology E Decel Time 247.00 (160-240 msec) E/A Ratio 1.0 MED E' 8.90 (< 7 cm/sec) E'/MED E' Ratio 9.31 (>14) LAT E' 9.80 (<10 cm/sec) E/LAT E' Ratio 8.46 (>14) Mitral Valve MV E Max Siddharth. 83.00 (40-130 cm/s) MV A Velocity 82.00 (40-130 cm/s) E/A Ratio 1.01 MV Decel. Time 247.00 (160-240 ms) MV PHT 72.00 ms Left Ventricle Technically difficult study because of the patient fact in poor acoustic windows, Definity contrast was utilized to delineate the endocardial surfaces. Left atrium is normal size, left ventricle is normal size, visually estimated ejection fraction 55% with no regional wall motion abnormality, diastolic parameters are within normal range, there is no left ventricular thrombus seen. Right Ventricle Right atrium and right ventricle are normal size and contractility. Aortic Valve Aortic valve is minimally thickened and fibrosed, there is no aortic stenosis or aortic insufficiency. Mitral Valve Mitral valve grossly normal, there is trace mitral regurgitation. Tricuspid Valve Tricuspid grossly normal, there is trace tricuspid regurgitation, tricuspid regurgitation jet velocity is inadequate for calculation of the right ventricular systolic pressure. Pulmonic Valve Pulmonic valve is poorly visualized. Great Vessels Aortic root is normal size. Inferior vena cava normal size with normal spectral collapse. Pericardium No significant pericardial effusion. Conclusion 1. Technically difficult study, Definity contrast was utilized to delineate the endocardial surfaces. Normal left ventricular size with preserved left ventricular systolic function, visually estimated ejection fraction 55% with no regional wall motion abnormality, diastolic parameters are within normal range, there is no left ventricular thrombus seen. 2. Trace mitral and tricuspid regurgitation. 3. No significant pericardial effusion. 4. Inferior vena cava is normal size with normal spectral collapse. Electronically signed by : Dwight Delgado MD 09/23/2021 19:39:41
--- NOTE | 2021-09-23 06:22 | CA_ITS ---
APPROVED REPORT Exam: Pharmacologic Technologist: Nataliya Clark, Ht: 5 ft 5 in Wt: 241 lbs BSA: 2.14 m2 HR: 66 bpm BP: 133/48 mmHg Medical History Medications: Aspirin,,,,, Hydrocodone,,,,, Gabapentin,,,,, Atorvastatin,,,,, Citalopram,,,,, INSULIN,,,,, Albuterol,,,,, Montelukast,,,,, Magnesium,,,,, Tiotropium [place],,,,, JaRDiance,,,,, Stress Test Details Test: LEXISCAN HR Resting HR: 67 bpm Max Heart Rate (APMHR): 161.036307 bpm Max HR Achieved: 87 bpm Target HR (85% APMHR): 136.944648 bpm % of APMHR: 54.04 Recovery HR: 71 bpm BP Resting BP: 133/48 mmHg Max BP: 159/53 mmHg Recovery BP: 136.0/57.0 mmHg ECG Resting ECG: NSR, rightward axis, cannot R/O old septal RI Clinical Exercise duration: 04:02 min Highest Stage Achieved: Exercise capacity: 1.0 METs Stress ECG Conclusion Symptoms: Mild SOA, MORAN. No CP. Arrhythmias/Ectopy: None. ST-T Changes: No significant changes. Conclusion: Unremarkable Lexiscan stress. Myoview images reported separately. Test Summary RECOVERY 03:00 . . 71 . 135/ 56 . . REST 04:32 . . 67 . 133/ 48 . . Stage 1 01:00 . . 81 . . . . Stage 2 01:00 . . 73 . . . . Stage 3 01:00 . . 73 . 159/ 53 . . Stage 4 01:00 . . 70 . 143/ 49 . . Stage 4 01:02 . . 71 . 143/ 49 . Stop exercise at 04:02 RECOVERY 01:00 . . 72 . . . . RECOVERY 02:00 . . 76 . . . . RECOVERY 03:00 . . 71 . 135/ 56 . . RECOVERY 03:23 . . 71 . 136/ 57 . . Electronically signed by : Dwight Delgado MD 09/23/2021 19:49:43
--- NOTE | 2021-09-23 06:22 | NM_ITS ---
APPROVED REPORT Exam: Nuclear Stress Test Indication: Chest pain, SOB, Palpitations, Fatigue, HTN, DM, High cholesterol, Former tobacco use, Family history Patient Location: Outpatient Stress Tech: Nataliya Darby NM Tech:Rona Morales, ARRT, RT (R)(N) Ht: 5 ft 5 in Wt: 230 lbs Bra Size: 42DD HR: 67 bpm BP: 133/48 mmHg BSA: 2.10 m2 BMI: 38.2 History: Chest pain, SOB, Palpitations, Fatigue, HTN, DM, High cholesterol, Former tobacco use, Family history Procedure: Patient received a 0.4 mg of intravenous Lexiscan, resting heart rate 67 bpm, resting blood pressure 133/48 mmHg, with Lexiscan maximum heart rate achived was 87 bpm which is Less than 85 % of the maximum predicted heart rate and blood pressure was 159/53 mmHg. With Lexiscan, patient denied any complaint of chest pain. Electrocardiogram Resting electrocardiogram shows sinus rhythm, with Lexiscan there is less than 1.[address] segment depression noted from the baseline EKG. The EKG portion of the Lexiscan is nondiagnostic. Cardiac Stress and Resting SPECT Images: Cardiac Stress and Resting SPECT images were obtained using technetium 99m Myoview 30.1 mCi stress and 10.42 mCi at rest. Patient unable to lay on stomach for prone images. Gated SPECT for analysis of segmental wall motion and calculation of the ejection fraction also done. Cardiac stress and resting SPECT images show uniform myocardial activity without segmental perfusion abnormality, computer derived ejection fraction is 45% with no regional wall motion abnormality, right ventricle is normal size and contractility. Conclusion: 1. The EKG portion of the Lexiscan is nondiagnostic. 2. No scintigraphic evidence of reversible ischemia seen, computer derived ejection fraction is 45% with no regional wall motion abnormality, right ventricle is normal size and contractility. 3. Normal Lexiscan Myoview study except for low normal ejection fraction. Electronically signed by : Dwight Delgado MD 09/23/2021 19:54:10
--- NOTE | 2021-09-23 08:18 | HMH.ITSHM ---
Current Home Medications as stated by this patient Mickie Race or account retention representative. []EMPAGLIFLOZIN ATORVASTATIN SPIRIVA MONTELUKAST MAGNESIUM INSULIN HYDROCODONE GABAPENTIN CITALOPRAM ASA ALBUTEROL
== END ==
PROVIDERS: PCP Family Medicine; Visit Provider Nurse Practitioner Family
DX: E10.65 Type 1 diabetes mellitus with hyperglycemia (principal); E78.5 Hyperlipidemia, unspecified; F17.200 Nicotine dependence, unspecified, uncomplicated; I10 Essential (primary) hypertension; I73.9 Peripheral vascular disease, unspecified; R06.00 Dyspnea, unspecified; R07.9 Chest pain, unspecified; R68.89 Other general symptoms and signs; R93.5 Abnormal findings on diagnostic imaging of other abdominal regions, including retroperitoneum; Z79.4 Long term (current) use of insulin
CPT/HCPCS: 78452; 93017; 93306; A9502; J2785; Q9957

== ENCOUNTER → 2021-09-24 10:01 | Outpatient (CLI) | payer MEDICARE, MEDICAID, SELFPAY ==
--- NOTE | 2021-09-24 10:01 | US_ITS ---
FINAL REPORT CLINICAL HISTORY: Nodule or node identified in the right side neck tech notes not included in images *Tech Note: nodule seen superior to thyroid rt neck; rt submandibular and parotid normal, normal node; left neck: nodes seen; submandibular and parotid normal FINDINGS: Sonographic images were obtained of the neck. The submandibular and parotid glands are normal bilaterally. There is a solid nodule superior to the right thyroid gland measuring 1.4 x 0.9 x 1.0 cm. It has a nonspecific appearance and may represent a mildly enlarged lymph node or other soft tissue nodule. There is a 1.3 cm presumed lymph node the left neck with an appearance consistent with a reactive lymph node. IMPRESSION: Solid nodule superior to the right thyroid gland, nonspecific may represent a mildly enlarged lymph node or other soft tissue nodule. 1.3 cm presumed lymph node left neck consistent with a reactive lymph node. Reviewed, Interpreted and Dictated by Juan Jose Mora III, MD Transcribed by Josiane Rivas Authenticated by Juan Jose Mora III, MD on 09/24/2021 01:35:23 PM [facility]
== END ==
PROVIDERS: PCP Family Medicine; Visit Provider Physician Assistant
DX: R06.00 Dyspnea, unspecified; R07.9 Chest pain, unspecified; E11.9 Type 2 diabetes mellitus without complications; R22.1 Localized swelling, mass and lump, neck; I73.9 Peripheral vascular disease, unspecified; F17.200 Nicotine dependence, unspecified, uncomplicated; Z79.4 Long term (current) use of insulin
CPT/HCPCS: 76536

== ENCOUNTER → 2021-11-07 07:44 | Outpatient (CLI) | payer MEDICARE, MEDICAID, SELFPAY ==
--- NOTE | 2021-11-07 07:44 | US_ITS ---
FINAL REPORT CLINICAL HISTORY: RT NECK MASS - BIOPSY FINDINGS: Ultrasound guided right neck noduley. HISTORY: Nodule just above the right thyroid. PROCEDURE: After informed consent was obtained and a time-out was performed, the patient was prepped and draped in usual sterile fashion over the right neck. Utilizing local anesthesia and sterile technique with a 25-gauge needle, access to the lesion was obtained. Four passes were made. The patient received no conscious sedation. The patient tolerated procedure well and left the department in good condition. IMPRESSION: Status post ultrasound guided biopsy of a nodule just above the right thyroid gland. Reviewed, Interpreted and Dictated by Dell Dobson MD Transcribed by JAVON Mitchell Authenticated by Dell Dobson MD on 11/07/2021 11:33:00 AM [facility]
== END ==
PROVIDERS: PCP Nurse Practitioner Family; Visit Provider Otolaryngology
DX: E04.1 Nontoxic single thyroid nodule (principal); R13.10 Dysphagia, unspecified
CPT/HCPCS: 10005; 76536

== ENCOUNTER → 2021-11-12 09:01 | Outpatient (CLI) | payer MEDICARE, MEDICAID, SELFPAY ==
--- NOTE | 2021-11-12 09:01 | FL_ITS ---
FINAL REPORT CLINICAL HISTORY: . trouble swallowing everything .51 fluoro time FINDINGS: ESOPHAGRAM HISTORY: Difficulty swallowing, feels like food gets stuck. TECHNIQUE: Patient ingested thick and thin barium contrast. Effervescent crystals were also administered. Spot and overhead films were performed. A total of 34 images were saved. FINDINGS: The esophagus is unremarkable. There is no hiatal hernia identified. There is mild gastroesophageal reflux to the midesophagus. No mucosal defects are seen. There is mild esophageal dysmotility. 13 mm barium tablet passes easily through the esophagus and into the stomach. FLUOROSCOPY TIME: 51 seconds. IMPRESSION: Esophageal dysmotility. Gastroesophageal reflux. Otherwise, unremarkable esophagram. Reviewed, Interpreted and Dictated by Juan Jose Mora III, MD Transcribed by Mary Grace De Leon PA-C Authenticated by Juan Jose Mora III, MD on 11/12/2021 11:31:36 AM [facility]
== END ==
PROVIDERS: PCP Family Medicine; Visit Provider Otolaryngology
DX: E04.1 Nontoxic single thyroid nodule (principal); R13.10 Dysphagia, unspecified
CPT/HCPCS: 74220

== ENCOUNTER → 2021-11-19 10:03 | Outpatient (CLI) | payer MEDICARE, MEDICAID, SELFPAY ==
[2021-11-19 11:17] LABS: Alanine Aminotransferase 19 U/L (12-78); Albumin Level 3.6 g/dl (3.5-5.0); Alkaline Phosphatase 128 U/L (38-126); Aspartate Amino Transferase 19 U/L (14-36); Bilirubin,Indirect 0.5 mg/dL (0.0-0.9); Bilirubin,Total 0.5 mg/dl (0.2-1.3); Bilirubin,Unconjugated 0.5 mg/dL (0.0-1.1); Chol/HDL Ratio 3.2 (1-3.5); Cholesterol 152 mg/dl (140-200); HDL Cholesterol 47 mg/dl (40-60); Triglycerides 101 mg/dl (30-150); VLDL Cholesterol 20 mg/dL (0-40)
[2021-11-19 11:28] LABS: Direct LDL Cholesterol 80.67 mg/dL (100-129)
== END ==
PROVIDERS: PCP Family Medicine; Visit Provider Nurse Practitioner
DX: E11.9 Type 2 diabetes mellitus without complications (principal); F17.200 Nicotine dependence, unspecified, uncomplicated; I25.10 Atherosclerotic heart disease of native coronary artery without angina pectoris; I73.9 Peripheral vascular disease, unspecified; Z79.4 Long term (current) use of insulin
CPT/HCPCS: 36415; 80061; 80076

== ENCOUNTER → 2021-12-29 09:46 | Outpatient (CLI) | payer MEDICARE, MEDICAID, SELFPAY ==
[2021-12-29 09:57] LABS: MANUAL DIFFERENTIAL MANUAL DIFFERENTIAL (MANUAL DIFF)
[2021-12-29 10:18] LABS: Basophils # 0.2 K/mm3 (0-0.2); Basophils % 1.7 % (0.1-2.0); Eosinophils # 0.1 K/mm3 (0.0-0.4); Eosinophils % 1.3 % (0.1-12.0); Hematocrit 47.7 % (37.0-47.0); Hemoglobin 15.2 g/dL (12.2-16.2); Lymphocytes # 2.9 K/mm3 (0.7-4.5); Mean Corpuscular HGB Conc 31.8 g/dL (31.8-35.4); Mean Corpuscular Hemoglobin 30.1 pg (27.0-31.2); Mean Corpuscular Volume 94.6 fl (81-99); Mean Platelet Volume 9.2 fl (7.4-10.4); Monocytes # 0.5 K/mm3 (0.1-1.0); Monocytes % 4.7 % (1.7-9.3); Neutrophils # 7.5 K/mm3 (1.8-7.8); Neutrophils % 66.3 % (37.0-80.0); Platelet Count 239 K/mm3 (142-424); Red Blood Count 5.04 M/mm3 (4.20-5.40); Red Cell Distribution Width 15.2 % (11.5-17.5); White Blood Count 11.3 K/mm3 (4.8-10.8)
[2021-12-29 10:34] LABS: Chloride 100 mmol/L (98-107); Potassium 4.1 mmoL/L (3.5-5.1); Sodium 137 mmol/L (136-145)
[2021-12-29 10:36] LABS: Blood Urea Nitrogen 13 mg/dl (7-17); Estimated Glomerular Filt Rate 73 ml/min (>60); GFR (African American) 89 ML/MIN (>60)
[2021-12-29 10:37] LABS: Alanine Aminotransferase 18 U/L (12-78); Albumin Level 3.3 g/dl (3.5-5.0); Albumin/Globulin Ratio 1.3 (1.1-1.8); Alkaline Phosphatase 117 U/L (38-126); Anion Gap 7.1 mEq/L (5-15); Aspartate Amino Transferase 21 U/L (14-36); Bilirubin,Total 0.6 mg/dl (0.2-1.3); Carbon Dioxide 34 mmol/L (22.0-30.0); Globulin 2.6 g/dL (1.3-3.2); Total Protein,Serum 5.9 g/dl (6.3-8.2)
[2021-12-29 10:42] LABS: Glucose 151 mg/dl (74-100)
[2021-12-29 10:43] LABS: Calcium 8.9 mg/dl (8.4-10.2)
[2021-12-29 11:05] LABS: Eosinophils % 1 % (0-3); Lymphocytes % 39 % (10-50); Monocytes % 3 % (2-9); Neutrophils % 57 % (42-76); Total Cells Counted 100
[2021-12-29 11:08] LABS: Ovalocytes 1+; Platelet Estimate Normal
== END ==
PROVIDERS: PCP Family Medicine; Visit Provider Otolaryngology
DX: D22.9 Melanocytic nevi, unspecified (principal); Z01.818 Encounter for other preprocedural examination; Z20.822 Contact with and (suspected) exposure to COVID-19
CPT/HCPCS: 36415; 80053; 85007; 85014; 85018; 85048; 85049; C9803; U0003; U0005

== ENCOUNTER 2021-12-31 06:54 | Day surgery (SDC) | payer MEDICARE, MEDICAID, SELFPAY ==
[2021-12-29 13:16] VITALS: BMI 39.9
--- NOTE | 2021-12-31 07:22 | ECG_ITS ---
APPROVED REPORT Exam: Resting ECG HR:79 bpm ECG Measurements Heart Rate 79 AXES IN 172 P 56 QRSd 97 QRS 83 QT 400 T 78 QTc 434 Conclusion SINUS RHYTHM WITH OCCASIONAL SUPRAVENTRICULAR PREMATURE COMPLEXES BORDERLINE ECG UNCONFIRMED REPORT Electronically signed by : Matthew Belcher MD 01/01/2022 08:26:52
[2021-12-31 07:24] LABS: POC Glucose,Bedside 65 (70-110)
[2021-12-31 07:25] VITALS: BP 120/57; PULSE 80; RESP 20; TEMP 36.5; O2SAT 92
[2021-12-31 07:56] VITALS: PULSE 71; PULSE 74
--- NOTE | 2021-12-31 08:05 | P.PN_ITS ---
[facility] Anesthesia Checklist - Patient Identification Patient Identification: Arm Band, Verbal (Name & ) - Structural Data Admitted From: Home Planned Operative Procedure/s: Nevus Excision Consent for Planned Operative Procedure(s) Verified: Yes Verified Documents: Surgical Consent - NPO Status Verified Time NPO: 00:00 - Chart Verification Results Verified: CBC, BMP - Additional verifications Anesthesia Reactions: Yes (PT STATED QUITS BREATHING) Hx Blood Transfusions: No Blood Transfusion Reaction: No - Airway Assessment C-Spine Mobility Assessed: Yes TMJ Mobility Assessed: Yes Dentition: Poor Dentition - Neurological Assessment Level of Consciousness: Awake, Alert, Appropriate - Anesthesia Plan Anesthesia Risk discussed: Yes ASA Class: III Anesthesia Type: MAC [facility] History I have reviewed the patient's past medical history: Yes Medical History: Reports:: Anxiety, Asthma, Chronic Obstructive Pulmonary Disease (COPD), Depression, Diabetes Mellitus Type 2, Gastroesophageal Reflux Disease(GERD), Migraine, Transient Ischemic Attacks (TIA) Denies:: Cancer, Diabetes Mellitus Type 1, Internal Pacemaker, MRSA, Seizures *Have you ever received a pneumonia vaccine?: Yes *Have you received a flu vaccine this season?: Yes Other Medical History: Reports: Arthritis, Hoarseness. Denies: Blood Transfusion Reaction Anesthesia experience/problems:: none Laterality Cases: Right: ACL Repair, Carpal Tunnel Release, Bilateral: Arth roscopy Knee, Cataract, Tonsillectomy Other Surgeries: Yes: Dilation and Curettage, Hysterectomy-Total. No: Pacemaker Amputation: No Fractures: No - *Social History Last grade of school completed: 11th or 12th Smoking Status: Current every day smoker Tobacco Type: cigarettes # Packs/Day (cigarettes): 1 Alcohol Intake: never Alcohol Intake Frequency:: holidays/special occasions only Substance Use Type: denies use *Occupational Status:: unemployed, disabled Housing: house Household Members: spouse, children *Travel in the last 8 weeks: None - Psychiatric History Pschychiatric History:: Reports:: Anxiety, Depression Family Hx:: Cancer, Diabetes, Heart Attack
[2021-12-31 08:07] LABS: POC Glucose,Bedside 70 (70-110)
[2021-12-31 08:33] LABS: POC Glucose,Bedside 71 (70-110)
[2021-12-31 09:30] VITALS: BP 152/95; PULSE 94; RESP 16; TEMP 36.6; O2SAT 94
--- NOTE | 2021-12-31 09:32 | HMH.OPNOTE ---
Date of procedure: 12/31/21 Pre-op Diagnosis:: nevus nasal tip Post-op Diagnosis:: nevus nasal tip Procedure performed:: Excisional biopsy Surgeon:: Barry Buckner MD TRANSPORTATION ANALYST:: Rafa Cat Anesthesia: MAC Estimated blood loss (mL): 0 Operative findings:: 1 cm inflamed nevus nasal tip Operative note:: The patient was brought to the operating room and placed supine and after adequate IV sedation 1% lidocaine with epinephrine was used to locally infiltrate the nasal tip and the face was prepped and draped and the nevus elliptically excised leaving a 1 cm full-thickness elliptical defect. Hemostasis was established with bipolar cautery and then the wound closed in 2 layers with 5-0 Vicryl and 6-0 nylon. A sterile dressing was placed and the procedure concluded. All counts correct. Blood loss minimal. Patient was sent to recovery in stable condition. Condition: stable Disposition: PACU Complications:: none
[2021-12-31 09:45] VITALS: BP 162/81; PULSE 81; RESP 16; O2SAT 94
[2021-12-31 10:00] VITALS: BP 150/71; PULSE 80; RESP 18; O2SAT 93
== END 2021-12-31 10:02 | disposition home or self-care (01) ==
LOC: OR 06:56
PROVIDERS: PCP Family Medicine; Visit Provider Otolaryngology
DX: D22.39 Melanocytic nevi of other parts of face (principal); J44.9 Chronic obstructive pulmonary disease, unspecified; K21.9 Gastro-esophageal reflux disease without esophagitis; F41.1 Generalized anxiety disorder; E11.51 Type 2 diabetes mellitus with diabetic peripheral angiopathy without gangrene; F32.A Depression, unspecified; Z72.0 Tobacco use; Z79.4 Long term (current) use of insulin; Z79.899 Other long term (current) drug therapy
CPT/HCPCS: 11106; 12051; 82962; 88305; 93005; 94640

== ENCOUNTER 2022-01-02 18:35 | Emergency (ER) | payer MEDICARE, MEDICAID, SELFPAY ==
[2022-01-02 18:45] VITALS: BP 119/51; PULSE 85; RESP 32; TEMP 36.8; O2SAT 96; BMI 39.9
--- NOTE | 2022-01-02 19:07 | HMH.EDUTC ---
[facility] [place] Clinical Impression: Bronchitis Sinusitis Qualifiers: Sinusitis location: unspecified location Chronicity: unspecified Qualified Code(s): J32.9 - Chronic sinusitis, unspecified Disposition: Home, Self-Care Condition on Discharge: Good Instructions: Cough, DI for Acute Bronchitis, Sinusitis, DI for Sinusitis, COPD: When to Call for Help, DI for Chronic Obstructive Pulmonary Disease Additional Instructions: ? Start antibiotic Be sure to complete entire prescription even if feeling better ? Monitor temp. Tylenol every 4 hours as needed and / or ibuprofen every 6 hours as needed ( As long as your primary care physician has told you that it ok to take both. For fever/aches/pains ER if no less than 101 despite Tylenol or Motrin ? Humidifier/vaporizer or hot steamy shower ? Inhaler every 4-6 hours as needed like we discussed. If unsure how to use it, ask pharmacist to demonstrate how. Should help open airways and improve cough, wheezing, and shortness of breath *Tessalon Perles will not cause drowsiness but use at bedtime to help stop cough so that you may get some rest. Follow up IMMEDIATELY for new or worsening of symptoms OR no noticeable improvement over the next 48-72 hours. 911 immediately for any life threatening symptoms such as chest pain or difficulty breathing Prescriptions: Benzonatate [Benzonatate 100mg cap] 100 mg PO Q8HP PRN #15 cap PRN Reason: Cough Transmission Status: Received by [facility] Cefdinir [Omnicef 300mg Capsule] 300 mg PO BID #20 cap Transmission Status: Received by [facility] Referrals: Matthew Ramesh MD [Primary Care Provider] - As needed Time of Disposition: 19:36 Medical Decision Making - Paul Inquiry Pt receiving controlled substance: No aPul was queried for this patient: No Vital Signs: 01/02/22 18:45 01/02/22 19:23 Temperature 98.2 F 98.2 F Temperature Source Temporal Artery Scan Pulse Rate 85 Pulse Rate [Left Brachial] 85 Respiratory Rate 32 H 28 H Blood Pressure 119/51 L Blood Pressure [Left Arm] 119/51 L Blood Pressure Mean [Left Arm] 73 Blood Pressure Source [Left Arm] Automatic Cuff Blood Pressure Position [Left Arm] Sitting 02 Sat by Pulse Oximetry 96 Oxygen Delivery Method Room Air Orders (Tests/Meds): ED MEDICATIONS Discontinued Medications Generic Name Dose Route Start Last Admin Trade Name Rylee PRN Reason Stop Dose Admin Albuterol Sulfate 2.5 mg 01/02/22 19:21 01/02/22 19:22 Albuterol 0.083% 2.5 Mg/3 Ml [facility] 01/02/22 19:22 2.5 mg ONCE ONE Administration Albuterol/Ipratropium 3 ml 01/02/22 19:06 01/02/22 19:24 Ipratropium/Albuterol 3 Ml [facility] 01/02/22 19:07 Not Given ONCE ONE Ceftriaxone Sodium 1 gm 01/02/22 19:03 01/02/22 19:20 Ceftriaxone 1gm Vial IM 01/02/22 19:04 1 gm ONCE ONE Administration Lidocaine HCl 0 ml 01/02/22 19:03 01/02/22 19:20 Lidocaine 1% 5ml Pf Vial IM 01/02/22 19:04 2 ml ONCE ONE Administration Methylprednisolone Sodium Succinate 125 mg 01/02/22 19:03 01/02/22 19:20 Methylprednisolone Sod Succ 125mg Vial IM 01/02/22 19:04 125 mg ONCE ONE Administration Medical Decision Narrative: Patient states that she has taken rocephin and solu medrol in the past without complications or reactions Medication discussed with pharmacy After injections and neb treatment patient states that she is feeling much better wanting to go home Discussed with patient about CXR and transfer to the ED and she declined States that she just wanted the steriod shot Patient educated to return immediately if any worsening of symptoms or shortness of breath and she verbalized understanding [facility] [place] - General Stated complaint: COUGH SOB Time Seen by Provider: 01/02/22 19:00 Mode of Arrival: Ambulatory Source of Information: Patient Limitations: No Limitations Description of Symptoms (Recalled from Triage Doc. by RN): PATIENT C/O SOA AND
[2022-01-02 19:23] VITALS: BP 119/51; PULSE 85; RESP 28; TEMP 36.8
== END 2022-01-02 19:40 | disposition home or self-care (01) ==
PROVIDERS: Emergency Provider Nurse Practitioner; PCP Family Medicine
DX: J40 Bronchitis, not specified as acute or chronic (principal); J32.9 Chronic sinusitis, unspecified
CPT/HCPCS: 94640; 96372; 99212; G0463; J0696

== ENCOUNTER 2022-01-21 16:54 | Observation (INO) | payer MEDICARE, MEDICAID, SELFPAY ==
--- NOTE | 2022-01-21 17:04 | ECG_ITS ---
APPROVED REPORT Exam: Resting ECG HR:63 bpm ECG Measurements Heart Rate 63 AXES PA 163 P 65 QRSd 93 QRS 84 QT 400 T 79 QTc 407 Conclusion SINUS RHYTHM NORMAL ECG UNCONFIRMED REPORT Electronically signed by : Matthew Belcher MD 01/22/2022 09:35:39
[2022-01-21 17:23] VITALS: BP 153/70; PULSE 72; RESP 18; TEMP 37.1; O2SAT 93; BMI 39.9
[2022-01-21 17:30] VITALS: BP 167/86; PULSE 73; O2SAT 96
--- NOTE | 2022-01-21 17:30 | XR_ITS ---
PROCEDURE INFORMATION: Exam: XR Chest Exam date and time: 01/21/2022 5:57 PM Age: 61 years old Clinical indication: Shortness of breath; Additional info: SOA TECHNIQUE: Imaging protocol: Radiologic exam of the chest. Views: 1 view. COMPARISON: CR XR CHEST 2V 06/13/2021 11:19 AM FINDINGS: Lungs: Right lung opacities are indeterminate. Pleural spaces: Unremarkable. No pleural effusion. No pneumothorax. Heart/Mediastinum: Cardiomegaly. Bones/joints: Unremarkable. IMPRESSION: Right lung opacities are indeterminate. This could correlate with atypical pneumonia in the appropriate clinical setting. Recommend follow-up radiographs to resolution to exclude a malignancy.
--- NOTE | 2022-01-21 17:49 | PC.NURSE ---
IV established, blood and urine sent to the lab. collection hat in the commode for stool sample. pt informed to let staff know of she has to go.
--- NOTE | 2022-01-21 17:50 | PC.NURSE ---
portable XR at the bedside
[2022-01-21 17:57] LABS: Microscopic, Urine URINE MICROSCOPIC (MICROSCOPIC)
[2022-01-21 17:57] LABS: Coronavirus 19, PCR Not Detected (NotDetected); Influenza A, PCR Not Detected (NotDetected); Influenza B, PCR Not Detected (NotDetected)
[2022-01-21 17:59] LABS: Appearance,Urine SL CLOUDY (Clear); Bilirubin,Urine Negative (Negative); Blood, Urine Negative (Negative); Glucose,Urine (UA) 1+ (Negative); Ketones,Urine Negative (Negative); Leukocyte Esterase,Urine Negative (Negative); Nitrate,Urine Negative (Negative); Protein,Urine Negative (Negative); Specific Gravity, Urine 1.015 (1.005-1.030); Urobilinogen,Urine 0.2 EU/dl (0.2)
[2022-01-21 18:05] LABS: Color,Urine Yellow (Yellow)
[2022-01-21 18:06] LABS: Basophils # 0.1 K/mm3 (0-0.2); Eosinophils # 0.1 K/mm3 (0.0-0.4); Eosinophils % 0.8 % (0.1-12.0); Hematocrit 47.8 % (37.0-47.0); Hemoglobin 13.9 g/dL (12.2-16.2); Lymphocytes # 1.6 K/mm3 (0.7-4.5); Lymphocytes % 12.6 % (10-50); Mean Corpuscular Hemoglobin 29.9 pg (27.0-31.2); Mean Corpuscular Volume 103.2 fl (81-99); Mean Platelet Volume 8.9 fl (7.4-10.4); Monocytes # 0.5 K/mm3 (0.1-1.0); Monocytes % 3.8 % (1.7-9.3); Neutrophils # 10.2 K/mm3 (1.8-7.8); Neutrophils % 81.8 % (37.0-80.0); Platelet Count 250 K/mm3 (142-424); Red Blood Count 4.63 M/mm3 (4.20-5.40); Red Cell Distribution Width 15.4 % (11.5-17.5); White Blood Count 12.5 K/mm3 (4.8-10.8)
--- NOTE | 2022-01-21 18:07 | PC.NURSE ---
pillow and blanket requested by pt. provided to pt. no other needs at this time. advised to pt we would update her when test results started coming back
[2022-01-21 18:08] LABS: Chloride 105 mmol/L (98-107); Potassium 4.4 mmoL/L (3.5-5.1); Sodium 138 mmol/L (136-145)
[2022-01-21 18:10] LABS: Blood Urea Nitrogen 8 mg/dl (7-17); Creatinine Clearance Estimated 147 mL/min (50-200); Estimated Glomerular Filt Rate 85 ml/min (>60); GFR (African American) 103 ML/MIN (>60)
[2022-01-21 18:11] LABS: Alanine Aminotransferase 29 U/L (12-78); Albumin Level 3.5 g/dl (3.5-5.0); Albumin/Globulin Ratio 1.1 (1.1-1.8); Alkaline Phosphatase 133 U/L (38-126); Anion Gap 3.4 mEq/L (5-15); Aspartate Amino Transferase 24 U/L (14-36); Bilirubin,Total 0.7 mg/dl (0.2-1.3); Carbon Dioxide 34 mmol/L (22.0-30.0); Globulin 3.1 g/dL (1.3-3.2); Total Protein,Serum 6.6 g/dl (6.3-8.2)
[2022-01-21 18:12] LABS: Calcium 8.9 mg/dl (8.4-10.2); Glucose 81 mg/dl (74-100)
--- NOTE | 2022-01-21 18:25 | PC.NURSE ---
RT at the bedside for breathing treatment
[2022-01-21 18:31] LABS: Bacteria,Urine 1+ /lpf; RBC,Urine Occasional #/hpf (0-3)
--- NOTE | 2022-01-21 18:31 | HMH.EDGENADL ---
ED Disposition Clinical Impression: Community acquired pneumonia Qualifiers: Laterality: right Lung location: lower lobe of lung Qualified Code(s): J18.9 - Pneumonia, unspecified organism COPD (chronic obstructive pulmonary disease) Qualifiers: COPD type: unspecified COPD Qualified Code(s): J44.9 - Chronic obstructive pulmonary disease, unspecified Diarrhea Qualifiers: Diarrhea type: unspecified type Qualified Code(s): R19.7 - Diarrhea, unspecified Disposition: Admitted as Observation Condition on Discharge: Fair Referrals: Matthew Ramesh MD [Primary Care Provider] - - Critical Care Critical Care Time: No Attestation: On 01/21/22, the high probability of a clinically significant, sudden or life threatening deterioration of the following system(s) required my full and direct attention, intervention and personal management. The time I documented below is in addition to time spent performing reported procedures but includes the following listed in this critical care notation. Medical Decision Making - Medical Records Medical records reviewed: Yes: I reviewed the patient's medical records. MR Comment: Reviewed cardiology office note from 01/06/2022. Patient was seen in Dr. Rojas's office, but states that her roller picker is Dr. Vega. She states that she saw Dr. Lewis because Dr. Blank wanted her to. As noted, has an appointment to follow-up with Dr. Vega tomorrow. - Paul Inquiry Pt receiving controlled substance: No Vital Signs: 01/21/22 17:23 01/21/22 17:30 Temperature 98.7 F Temperature Source Oral Pulse Rate 73 Pulse Rate [Left Radial] 72 Respiratory Rate 18 Blood Pressure 167/86 H Blood Pressure [Right Arm] 153/70 H Blood Pressure Mean 133 Blood Pressure Mean [Right Arm] 97 02 Sat by Pulse Oximetry 93 L 96 Oxygen Delivery Method Room Air Room Air - Lab Data Lab Results 01/21/22 17:40: WBC 12.5 H, RBC 4.63, Hgb 13.9, Hct 47.8 H, MCV 103.2 H, MCH 29.9, MCHC 29.0 L, RDW 15.4, Plt Count 250, MPV 8.9, Neut % (Auto) 81.8 H, Lymph % (Auto) 12.6, [place] % (Auto) 3.8, Eos % (Auto) 0.8, Baso % (Auto) 1.0, Neut # (Auto) 10.2 H, Lymph # (Auto) 1.6, [place] # (Auto) 0.5, Eos # (Auto) 0.1, Baso # (Auto) 0.1 01/21/22 17:40: Sodium 138, Potassium 4.4, Chloride 105, Carbon Dioxide 34 H, Anion Gap 3.4 L, BUN 8, Creatinine 0.70, Estimated Creat Clear 147, Estimated GFR 85, Est GFR ( Amer) 103, Glucose 81, Calcium 8.9, Total Bilirubin 0.7, AST 24, ALT 29, Alkaline Phosphatase 133 H, Total Protein 6.6, Albumin 3.5, Globulin 3.1, Albumin/Globulin Ratio 1.1 01/21/22 17:40: Lactate 1.0 01/21/22 17:41: SARS-CoV-2 (PCR) Not detected, Influenza A Untype (PCR) Not detected, Influenza Type B (PCR) Not detected 01/21/22 17:46: Urine Color Yellow, Urine Appearance Sl cloudy, Urine pH 7.0, Ur Specific [place] 1.015, Urine Protein Negative, Urine Glucose (UA) 1+, Urine Ketones Negative, Urine Blood Negative, Urine Nitrate Negative, Urine Bilirubin Negative, Urine Urobilinogen 0.2, Ur Leukocyte Esterase Negative, Urine RBC Occasional, Urine WBC None, Ur Squamous Epith Cells 10-20, Urine Bacteria 1+ Result diagrams: 01/21/22 17:40 01/21/22 17:40 Orders (Tests/Meds): ED MEDICATIONS Generic Name Dose Route Start Last Admin Trade Name Freq PRN Reason Stop Dose Admin Benzonatate 100 mg 01/21/22 21:00 Benzonatate 100mg Capsule PO 02/20/22 20:59 TID SAIRA Levofloxacin/Dextrose 750 mg in 150 mls @ 100 mls/hr 01/21/22 19:00 Levofloxacin 750mg/150ml Premix IV 02/04/22 18:59 Q24H SAIRA Discontinued Medications Generic Name Dose Route Start Last Admin Trade Name Freq PRN Reason Stop Dose Admin Albuterol/Ipratropium 3 ml 01/21/22 18:19 Ipratropium/Albuterol 3 Ml Neb IH 01/21/22 18:20 ONCE ONE Methylprednisolone Sodium Succinate 125 mg 01/21/22 18:51 Methylprednisolone Sod Succ 125mg Vial IV 01/21/22 18:52 ONCE ONE ORDERS Category Date Time Status Di
--- NOTE | 2022-01-21 18:43 | PC.NURSE ---
AMY BOYER at ; daughter at BS
[2022-01-21 19:00] LABS: Adenovirus,PCR Not Detected (NotDetected); Bordetella Pertussis Not Detected (NotDetected); Chlamydophila Pneumoniae, PCR Not Detected (NotDetected); Coronavirus 19, PCR Not Detected (NotDetected); Coronavirus 229E Not Detected (NotDetected); Coronavirus NL63 Not Detected (NotDetected); Coronavirus OC43 Not Detected (NotDetected); Coronovirus HKU1,PCR Not Detected (NotDetected); Human Metapneumovirus Not Detected (NotDetected); Influenza A, PCR Not Detected (NotDetected); Influenza AH1, 2009 Not Detected (NotDetected); Influenza AH1, PCR Not Detected (NotDetected); Influenza AH3,PCR Not Detected (NotDetected); Influenza B, PCR Not Detected (NotDetected); Mycoplasma Pneumoniae, PCR Not Detected (NotDetected); Parainfluenza 1, PCR Not Detected (NotDetected); Parainfluenza 2, PCR Not Detected (NotDetected); Parainfluenza 3, PCR Not Detected (NotDetected); Parainfluenza 4, PCR Not Detected (NotDetected); Respiratory Syncytial Virus Not Detected (NotDetected); Rhinovirus/Enterovirus Not Detected (NotDetected)
--- NOTE | 2022-01-21 19:00 | PC.NURSE ---
Regulo Blank for ER MD
--- NOTE | 2022-01-21 19:04 | PC.NURSE ---
AMY BOYER speaking with Dr. Blank at this time
--- NOTE | 2022-01-21 19:08 | PC.NURSE ---
SPOKE WITH HOUSE FOR ADMISSION
--- NOTE | 2022-01-21 19:11 | PC.NURSE ---
pt unable to confirm medications she takes. pt states she does not know and it's all in the system.
[2022-01-21 19:17] VITALS: BMI 40.4
[2022-01-21 20:00] VITALS: BP 135/61; PULSE 78; RESP 22; O2SAT 95; O2SAT 98
[2022-01-21 20:24] LABS: Adenovirus F 40/41, stool Not Detected (NotDetected); Astrovirus Not Detected (NotDetected); Campylobacter Not Detected (NotDetected); Clostridium Difficile A/B, PCR Not Detected (NotDetected); Cryptosporidium Not Detected (NotDetected); Cyclospora Cayetanesis Not Detected (NotDetected); Entamoeba histolytica Not Detected (NotDetected); Enteroaggregative E coli Not Detected (NotDetected); Enteropathogenic E coli Not Detected (NotDetected); Enterotoxigenic E coli Not Detected (NotDetected); Giardia lamblia Not Detected (NotDetected); Norovirus Not Detected (NotDetected); Plesimonas Shigalloides, PCR Not Detected (NotDetected); Rotavirus A Not Detected (NotDetected); Salmonella, PCR Not Detected (NotDetected); Sapovirus Not Detected (NotDetected); Shiga-like toxin E coli Not Detected (NotDetected); Shigella Enterovasive E coli Not Detected (NotDetected); Vibrio Cholerae Not Detected (NotDetected); Vibrio, PCR Not Detected (NotDetected); Yersinia Entercolitica, PCR Not Detected (NotDetected)
--- NOTE | 2022-01-21 20:30 | PC.NURSE ---
Pt ambulatory to bathroom and back to wheelchair. Call light within reach. No other needs.
[2022-01-21 20:37] VITALS: BP 135/61; PULSE 78; RESP 18; TEMP 36.8; O2SAT 95
--- NOTE | 2022-01-21 20:40 | PC.NURSE ---
patient up too floor via wheelchair @ this time.
[2022-01-21 21:00] VITALS: BP 134/61; PULSE 72; RESP 24; TEMP 36.8; O2SAT 96
--- NOTE | 2022-01-21 21:24 | PC.NURSE ---
ADMISSION DONE TO THE BEST OF MY ABILITIES. PT STATES SHE IS A LITTLE CONFUSED AND IS A POOR HISTORIAN.
[2022-01-21 21:36] LABS: POC Glucose,Bedside 86 (70-110)
[2022-01-22] VITALS (10 sets, daily range): BP systolic 117–147; BP diastolic 52–88; PULSE 61–87; RESP 16–24; TEMP 36.5–37.1; O2SAT 91–95; BMI 40.4
--- NOTE | 2022-01-22 00:19 | PC.NURSE ---
med rec done per external med list
--- NOTE | 2022-01-22 04:28 | PC.NURSE ---
PT IS ALERT AND ORIENTED X4 WITH PERIODS OF CONFUSION. SHE STATES THAT SHE HAS BEEN MORE CONFUSED IN THE LAST FEW MONTHS. LUNG SOUNDS ARE DIMINISHED T/O BILATERALLY. SHE IS TOLERATING ROOM AIR WELL. SHE DOSE BECOME SHORT OF BREATH WHEN AMBULATING. SHE HAS COUGHED INTERMITTENTLY T/O THE SHIFT. SHE C/O BACK AND NECK PAIN ONCE THIS SHIFT AND WAS MEDICATED PER MAR. PT STATES SHE, JUST WANTS TO FEEL BETTER. VSS. NO OTHER COMPLAINTS/CONCERNS AT THIS TIME.
[2022-01-22 05:21] LABS: POC Glucose,Bedside 141 (70-110)
--- NOTE | 2022-01-22 07:18 | HMH.PHAVTE ---
[facility] Pharmacy VTE Monitoring - Patient Demographics Admission date: 01/21/22 Report Date: 01/22/22 Time: 07:18 Allergies/Adverse Reactions: Patient Allergies shellfish derived [From SHELLFISH (FOOD/DRUG)] Allergy (Severe, Verified 01/13/22 13:21) SWELLING azithromycin [From ZITHROMAX] Allergy (Unknown, Verified 01/13/22 13:21) doxycycline [DOXYCYCLINE] Allergy (Unknown, Verified 01/13/22 13:21) ibuprofen [From MOTRIN] Allergy (Unknown, Verified 01/13/22 13:21) terbutaline [TERBUTALINE] Allergy (Unknown, Verified 01/13/22 13:21) Height: 1.65 m Weight: 110.132 kg Patient Problems: Current Active Problems Diarrhea (Acute) Community acquired pneumonia (Acute) COPD (chronic obstructive pulmonary disease) (Acute) - VTE Risk Labs: VTE Related Lab Results Hgb 13.9 g/dL (12.2-16.2) 01/21/22 17:40 Hct 47.8 % (37.0-47.0) H 01/21/22 17:40 Plt Count 250 K/mm3 (142-424) 01/21/22 17:40 BUN 8 mg/dl (7-17) 01/21/22 17:40 Creatinine 0.70 mg/dl (0.52-1.04) 01/21/22 17:40 Estimated Creat Clear 147 mL/min (50-200) 01/21/22 17:40 Was VTE Risk Assessment Performed: Yes VTE Score: 10 VTE Risk Level: Moderate Risk - Prophylaxis VTE Prophylaxis Ordered?: Yes Types of VTE Prophylaxis: TEDS Knee High Location of Applied Device: Bilateral Lower Extremeties
--- NOTE | 2022-01-22 08:56 | HMH.PHAINT ---
MEDICATION RECONCILIATION COMPLETED ON PATIENT USING EXTERNAL FILL HISTORY FROM PHARMACY AND PATIENT INTERVIEW. -CYNDIE REYES, ALFREDD
--- NOTE | 2022-01-22 10:35 | HMH.ACPN2 ---
Internal Medicine - PN: Subj *Date: 01/22/22 *Time: 10:35 Interval history: This 61-year-old white female is a patient of Dr. Ramesh in [place]. She has been seen by Dr. Ramesh and also an urgent treatment for persistent symptoms of bronchitis. She states that symptoms started out as allergic she thought. Despite antibiotic treatment and steroid treatment she has not been able to clear her symptoms. She is diabetic. She is a smoker but states that she quit smoking 3 days ago due to her symptoms. She was seen in the emergency room and admitted for further evaluation and treatment Exam Vital signs and Labs for Last 24 Hours: Temp Pulse Resp BP Pulse Ox 97.7 F 61 17 140/73 94 L 01/22/22 08:00 01/22/22 08:00 01/22/22 08:00 01/22/22 08:00 01/22/22 08:00 Laboratory Results - last 24 hr 01/21/22 17:40: WBC 12.5 H, RBC 4.63, Hgb 13.9, Hct 47.8 H, MCV 103.2 H, MCH 29.9, MCHC 29.0 L, RDW 15.4, Plt Count 250, MPV 8.9, Neut % (Auto) 81.8 H, Lymph % (Auto) 12.6, [place] % (Auto) 3.8, Eos % (Auto) 0.8, Baso % (Auto) 1.0, Neut # (Auto) 10.2 H, Lymph # (Auto) 1.6, [place] # (Auto) 0.5, Eos # (Auto) 0.1, Baso # (Auto) 0.1 01/21/22 17:40: Sodium 138, Potassium 4.4, Chloride 105, Carbon Dioxide 34 H, Anion Gap 3.4 L, BUN 8, Creatinine 0.70, Estimated Creat Clear 147, Estimated GFR 85, Est GFR ( Amer) 103, Glucose 81, Calcium 8.9, Total Bilirubin 0.7, AST 24, ALT 29, Alkaline Phosphatase 133 H, Total Protein 6.6, Albumin 3.5, Globulin 3.1, Albumin/Globulin Ratio 1.1 01/21/22 17:40: Lactate 1.0 01/21/22 17:41: SARS-CoV-2 (PCR) Not detected, Influenza A Untype (PCR) Not detected, Influenza Type B (PCR) Not detected 01/21/22 17:41: Chlamy pneumoniae PCR Not detected, Adenovirus (PCR) Not detected, B. pertussis DNA (PCR) Not detected, Coronavirus OC43 (PCR) Not detected, Coronavirus HKU1 (PCR) Not detected, Coronavirus 229E (PCR) Not detected, SARS-CoV-2 (PCR) Not detected, Coronavirus NL63 (PCR) Not detected, Human Metapneumovir PCR Not detected, Influenza A (H1) PCR Not detected, Influ A (H1N1/09) PCR Not detected, Influenza A (H3) PCR Not detected, Influenza Type A (PCR) Not detected, Influenza Type B (PCR) Not detected, M. pneumoniae (PCR) Not detected, Parainfluenza 1 (PCR) Not detected, Parainfluenza 2 (PCR) Not detected, Parainfluenza 3 (PCR) Not detected, Parainfluenza 4 (PCR) Not detected, RSV (PCR) Not detected, Entero/Rhino (PCR) Not detected 01/21/22 17:46: Urine Color Yellow, Urine Appearance Sl cloudy, Urine pH 7.0, Ur Specific [place] 1.015, Urine Protein Negative, Urine Glucose (UA) 1+, Urine Ketones Negative, Urine Blood Negative, Urine Nitrate Negative, Urine Bilirubin Negative, Urine Urobilinogen 0.2, Ur Leukocyte Esterase Negative, Urine RBC Occasional, Urine WBC None, Ur Squamous Epith Cells 10-20, Urine Bacteria 1+ 01/21/22 20:21: Stl Aeromonas (PCR) Not detected, Stl C. cayetanensis PCR Not detected, Stool Rotavirus (PCR) Not detected, Stl Adenov F 40/41 PCR Not detected, Stool Astrovirus (PCR) Not detected, Stool Campylobacter PCR Not detected, Stl C.difficile Tox PCR Not detected, Stool Cryptosporidium PCR Not detected, Stl E.coli Shiga Tox PCR Not detected, Stool E coli O157 PCR Not detected, Stl Enterotoxigenic E PCR Not detected, Stool EPEC (PCR) Not detected, Stool EAEC (PCR) Not detected, Stl E. histolytica PCR Not detected, Stool Giardia Lamblia PCR Not detected, Stool Salmonella PCR Not detected, Stool Sapovirus (PCR) Not detected, Stl P. shigelloides PCR Not detected, Stl Shigella/EIEC PCR Not detected, St Y.enterocolitica PCR Not detected, Stool Vibrio (PCR) Not detected, Stl Vibrio cholerae PCR Not detected, Stl Norovirus GI/GII PCR Not detected 01/21/22 21:11: POC Glucose 86 01/22/22 05:04: POC Glucose 141 H I & O for Last 24 hours: Intake & Output 01/19/22 01/20/22 01/21/22 01/22/22 11:59 11:59 11:59 11:59 Intake Total 360 / 360 Balance 360 / 360 Weight 242 lb 8.136 oz - Constitutional no acute di
--- NOTE | 2022-01-22 10:42 | PC.NURSE ---
Rounded on pt cleaned and straightened room. No needs voiced at this time. Pt in bed watching tv.
--- NOTE | 2022-01-22 11:05 | HMH.HP ---
*Admission Date: 01/21/22 *Chief complaint: shortness of breath *History of present illness: This 61-year-old white female is a patient of Dr. Ramesh in [place]. She has been seen by Dr. Ramesh and also an urgent treatment for persistent symptoms of bronchitis. She states that symptoms started out as allergic she thought. Despite antibiotic treatment and steroid treatment she has not been able to clear her symptoms. She is diabetic. She is a smoker but states that she quit smoking 3 days ago due to her symptoms. She was seen in the emergency room and admitted for further evaluation and treatment. (above as per Dr. Blank) This am she is feeling better. She has not required any supplemental oxygen and her wheezing has improved. [facility] History I have reviewed the patient's past medical history: Yes Medical History: Reports:: Anxiety, Asthma, Chronic Obstructive Pulmonary Disease (COPD), Depression, Diabetes Mellitus Type 2, Gastroesophageal Reflux Disease(GERD), Hyperlipidemia, Hypertension, Migraine, Palpitations, Peripheral Artery Disease, Transient Ischemic Attacks (TIA) Denies:: Cancer, Diabetes Mellitus Type 1, Internal Pacemaker, MRSA, Seizures *Have you ever received a pneumonia vaccine?: No *Have you received a flu vaccine this season?: Yes Other Medical History: Reports: Arthritis, Hoarseness. Denies: Blood Transfusion Reaction Laterality Cases: Right: ACL Repair, Carpal Tunnel Release, Bilateral: Arthroscopy Knee, Tonsillectomy Other Surgeries: Yes: Dilation and Curettage, Hysterectomy-Total. No: Pacemaker Amputation: No Fractures: No - *Social History Last grade of school completed: 11th or 12th Smoking Status: Former smoker Tobacco Type: cigarettes # Packs/Day (cigarettes): 1 Alcohol Intake: never Alcohol Intake Frequency:: holidays/special occasions only Substance Use Type: marijuana Last Used Substance: unknown *Occupational Status:: disabled Housing: apartment Household Members: family *Travel in the last 8 weeks: None - Psychiatric History Pschychiatric History:: Reports:: Anxiety, Depression Family Hx:: Cancer, Coronary Artery Disease, Diabetes, Heart Attack, Hyperlipidemia, Hypertension, Mental illness Review of Systems - Constitutional Reports body ache(s), Reports chills, Reports fever(s), Reports weakness - Eyes Denies blurry vision, Denies double vision - ENT Reports nasal congestion, Reports sore throat - *Cardiovascular Reports chest pain, Reports shortness of breath - *Respiratory Reports chest congestion, Reports cough, Reports shortness of breath, Reports wheezing - *Gastrointestinal Reports loose stools, Reports nausea, Denies abdominal pain, Denies vomiting - *Genitourinary Denies difficulty urinating, Denies painful urination - *Musculoskeletal Reports joint pain - *Neurologic Reports headache(s), Reports dizziness, Reports weakness Meds Home Medications Medication Instructions Recorded Confirmed Type Aspirin [Aspir 81] 81 mg PO DAILY 09/02/17 01/21/22 History Montelukast Sodium [Montelukast 10 mg PO HS 09/02/17 01/21/22 History 10mg Tab] Albuterol Sulfate [Ventolin HFA 1 - 2 puffs IH Q4HP PRN 09/16/18 01/22/22 History Inhaler] empagliflozin 25 mg tablet 25 mg PO DAILY 04/18/21 01/21/22 History Magnesium 400 mg PO DAILY 06/16/21 01/21/22 History citalopram 40 mg tablet 40 mg PO DAILY tab 10/28/21 01/21/22 History gabapentin 600 mg tablet 1,200 mg PO DAILY tab 10/28/21 01/22/22 History hydrocodone 10 mg-acetaminophen 1 tab PO Q6HP PRN tab 10/28/21 01/21/22 History 325 mg tablet atorvastatin 40 mg tablet 40 mg PO DAILY tab 01/13/22 01/21/22 History famotidine 20 mg tablet 20 mg PO BID tab 01/13/22 01/22/22 History fluticasone propionate 50 1 spray NS DAILY 01/13/22 01/22/22 History mcg/actuation nasal spray,suspension insulin aspart U-100 100 unit/mL 30 units SQ AC 01/13/22 01/22/22 History (3 mL) subcutaneous pen insulin degludec 200 unit/mL
[2022-01-22 11:54] LABS: POC Glucose,Bedside 210 (70-110)
--- NOTE | 2022-01-22 14:41 | PC.NURSE ---
rounded on patient no concerns or questions at this time. currently patient is reading lying in bed. medications at bedside in her bag has been brought in for nurse to verify. no complaints. encouraged to ring out with any needs or concerns.
--- NOTE | 2022-01-22 15:38 | PC.NURSE ---
Pt is A/Ox4. She has been up to the chair multiple times today. She has these coughing fits where she cannot catch her breath. You place her on o2 for a few mins to help her recover and she does well. No change since last assessment.
[2022-01-22 16:56] LABS: POC Glucose,Bedside 263 (70-110)
[2022-01-22 20:25] LABS: POC Glucose,Bedside 286 (70-110)
[2022-01-23] VITALS (7 sets, daily range): BP systolic 128–141; BP diastolic 47–72; PULSE 53–91; RESP 16–18; TEMP 36.5–36.8; O2SAT 95–98; BMI 40.4
--- NOTE | 2022-01-23 01:57 | PC.NURSE ---
This RN was notified pt was satting and maintaining at 87%. Pt asleep on assessment. Pt woken and o2 sat was 92%. Pt states she has sleep apnea. 2 L nc applied to pt while sleeping.
[2022-01-23 05:11] LABS: POC Glucose,Bedside 179 (70-110)
--- NOTE | 2022-01-23 08:36 | HMH.ACPN2 ---
Internal Medicine - PN: Subj *Date: 01/23/22 *Time: 08:36 Interval history: Patient states she is feeling better this morning. She is very shaky after her breathing treatment. According to her nurse, she had coughing fits throughout the night and Hycodan was ordered which did help. She did drop to 84% during the night. She states she used to have a CPAP at home but could not tolerate the mask. She would be agreeable to wearing oxygen at night while sleeping. She is inquiring about her Tresiba. Exam Vital signs and Labs for Last 24 Hours: Temp Pulse Resp BP Pulse Ox 97.7 F 66 18 141/69 H 95 01/23/22 08:00 01/23/22 08:00 01/23/22 08:00 01/23/22 08:00 01/23/22 08:00 Laboratory Results - last 24 hr 01/22/22 11:33: POC Glucose 210 H 01/22/22 16:42: POC Glucose 263 H 01/22/22 20:09: POC Glucose 286 H 01/23/22 04:58: POC Glucose 179 H I & O for Last 24 hours: Intake & Output 01/20/22 01/21/22 01/22/22 01/23/22 11:59 11:59 11:59 11:59 Intake Total 360 / 360 1170 / 1170 Balance 360 / 360 1170 / 1170 Weight 242 lb 8.136 oz 242 lb 4.8 oz Microbiology Reports for the Last 24 Hours: Microbiology 01/22/22 09:20 Sputum - Expectorated Sputum Gram Stain - Final 01/22/22 09:20 Sputum - Expectorated Sputum Sputum Culture - Preliminary - Constitutional no acute distress - *Routine Respiratory Exam Present: decreased breath sounds, CTA bilaterally - *Routine Cardiovascular Exam Present: RRR - *Routine Abdominal Exam Present: soft, normoactive bowel sounds. Absent: tenderness - *Routine Extremities Exam Absent: cyanosis, clubbing, edema - *Routine Skin Exam Present: warm. Absent: rash - *Routine Neurological Exam Present: alert, oriented X3 Assessment and Plan (1) Acute exacerbation of chronic obstructive pulmonary disease (COPD) Status: Acute Category: Medical Code(s): J44.1 - Chronic obstructive pulmonary disease with (acute) exacerbation (2) Diabetes mellitus, insulin dependent (IDDM), uncontrolled Status: Acute Qualifiers: Coma presence: unspecified whether coma present Category: Medical Code(s): E10.65 - Type 1 diabetes mellitus with hyperglycemia (3) Obesity (BMI 30.0-34.9) Status: Acute Category: Medical Code(s): E66.9 - Obesity, unspecified (4) Tobacco dependence syndrome Status: Chronic Category: Medical Code(s): F17.200 - Nicotine dependence, unspecified, uncomplicated (5) Diarrhea Status: Acute Qualifiers: Diarrhea type: unspecified type Qualified Code(s): R19.7 - Diarrhea, unspecified Category: Medical Code(s): R19.7 - Diarrhea, unspecified (6) Leukocytosis Status: Acute Qualifiers: Leukocytosis type: unspecified Qualified Code(s): D72.829 - Elevated white blood cell count, unspecified Category: Medical Code(s): D72.829 - Elevated white blood cell count, unspecified (7) HLD (hyperlipidemia) Status: Chronic Qualifiers: Hyperlipidemia type: mixed hyperlipidemia Qualified Code(s): E78.2 - Mixed hyperlipidemia Category: Medical Code(s): E78.5 - Hyperlipidemia, unspecified (8) PAD (peripheral artery disease) Status: Chronic Category: Medical Code(s): I73.9 - Peripheral vascular disease, unspecified - Assessment and plan all Dx Assessment and Plan for all problems:: We will switch to Xopenex nebs. She will likely need oxygen at home for nighttime. She may be able to be discharged today. Will discuss with Dr. Blank.
--- NOTE | 2022-01-23 11:24 | CARE MANAGER ---
Patient room air saturation 87% at rest. Will require 2.5 L per NC upon discharge.
[2022-01-23 12:17] LABS: POC Glucose,Bedside 317 (70-110)
--- NOTE | 2022-01-23 15:21 | PC.NURSE ---
rounded on patient. eager for discharge. home medications obtained from drawer and put up for patient to take home. no questions currently.
--- NOTE | 2022-01-25 23:37 | HMH.DCSUM ---
General - General Admission date:: 01/21/22 Discharge date: 01/23/22 HPI HPI: This 61-year-old white female is a patient of Dr. Ramesh in [place]. She has been seen by Dr. Ramesh and also an urgent treatment for persistent symptoms of bronchitis. She states that symptoms started out as allergic she thought. Despite antibiotic treatment and steroid treatment she has not been able to clear her symptoms. She is diabetic. She is a smoker but states that she quit smoking 3 days ago due to her symptoms. She was seen in the emergency room and admitted for further evaluation and treatment. (above as per Dr. Blank) This am she is feeling better. She has not required any supplemental oxygen and her wheezing has improved. Hospital Course Hospital Course: The patient was admitted and started on duo nebs, Levaquin, and IV steroids. Her chest x-ray showed a possible pneumonia. Her stool panel and PCR respiratory panel were both negative. By 01/23/2022, she was feeling much better. She was shaky after the breathing treatment and did have coughing fits throughout the night. Hycodan was ordered and helped. Her oxygen did drop to 84% during the night, but stabilized during the day on room air. She stated she used to have a CPAP at home but could not tolerate it. She was agreeable to wearing oxygen at night while sleeping. She was stable to be discharged home on Levaquin and will follow up with her PCP. Objective Vital signs: Temp Pulse Resp BP Pulse Ox 97.7 F 83 17 128/47 L 96 01/23/22 11:36 01/23/22 14:07 01/23/22 11:36 01/23/22 11:36 01/23/22 14:07 Narrative: - Constitutional no acute distress - *Routine HEENT Exam Head: Present: normocephalic Eye: Present: EOMI, PERRL ENT: Present: mucous membranes dry - *Routine Neck Exam Present: supple. Absent: lymphadenopathy - *Routine Respiratory Exam Present: decreased breath sounds, CTA bilaterally - *Routine Cardiovascular Exam Present: RRR - *Routine Abdominal Exam Present: soft, normoactive bowel sounds. Absent: tenderness - *Routine Rectal Exam Rectal:: deferred - *Routine Genitalia Exam Genitalia:: deferred - *Routine Extremities Exam Absent: cyanosis, clubbing, edema (trace) - *Routine Skin Exam Present: warm. Absent: rash - *Routine Neurological Exam Present: alert, oriented X3 Results Labs on day of discharge: Preliminary micro results at discharge 01/21/22 17:40 Blood Culture - Preliminary Blood NO GROWTH AFTER 48 HOURS 01/21/22 17:40 Blood Culture - Preliminary Blood NO GROWTH AFTER 48 HOURS DS: Diagnosis - Discharge Diagnosis (1) Acute exacerbation of chronic obstructive pulmonary disease (COPD) Status: Acute (2) Diabetes mellitus, insulin dependent (IDDM), uncontrolled Status: Acute (3) Obesity (BMI 30.0-34.9) Status: Acute (4) Tobacco dependence syndrome Status: Chronic (5) Diarrhea Status: Acute (6) Leukocytosis Status: Acute (7) HLD (hyperlipidemia) Status: Chronic (8) PAD (peripheral artery disease) Status: Chronic Discharge Plan - Patient Discharge Instructions ACTIVITY: Continue current activity DIET: advance to your usual diet Patient Instructions: Chronic Obstructive Pulmonary Disease (Alternative Therapy), Diarrhea, DI for Pneumonia -- Adult - Follow up Plan Follow up with: Matthew Ramesh MD [Primary Care Provider] - 01/28/22 11:15 am (please arrive 15 minutes prior to appointment and wear a mask) Disposition: Home, Self-Care Condition at discharge:: Improved Home Medications: Home Medications Medication Instructions Recorded Confirmed Type Aspirin [Aspir 81] 81 mg PO DAILY 09/02/17 01/21/22 History Montelukast Sodium [Montelukast 10 mg PO HS 09/02/17 01/21/22 History 10mg Tab] Albuterol Sulfate [Ventolin HFA 1 - 2 puffs IH Q4HP PRN 09/16/18 01/22/22 History Inhaler] empagliflozin 25 mg tablet 25 mg
--- NOTE | 2022-01-26 15:21 | CARE MANAGER ---
Spoke with patient for post-discharge phone interview, patient states no issues at this time. She has her antibiotics and will see Dr. Ramesh for follow-up in the am.
== END 2022-01-23 15:13 | disposition home or self-care (01) ==
LOC: ER 19:00 → 2ND 21:00
PROVIDERS: Admitting Provider Family Medicine; Emergency Provider Emergency Medicine; PCP Family Medicine; Visit Provider Family Medicine
DX: J18.9 Pneumonia, unspecified organism (principal); E11.65 Type 2 diabetes mellitus with hyperglycemia; Z79.4 Long term (current) use of insulin; J44.1 Chronic obstructive pulmonary disease with (acute) exacerbation; R19.7 Diarrhea, unspecified; F17.210 Nicotine dependence, cigarettes, uncomplicated; G43.909 Migraine, unspecified, not intractable, without status migrainosus; K21.9 Gastro-esophageal reflux disease without esophagitis; Z79.899 Other long term (current) drug therapy; Z88.8 Allergy status to other drugs, medicaments and biological substances; E78.5 Hyperlipidemia, unspecified; Z20.822 Contact with and (suspected) exposure to COVID-19
CPT/HCPCS: G0378; 71045; 80053; 81001; 82962; 83605; 85025; 87040; 87070; 87205; 87506; 87581; 87632; 87798; 93005; 94640; 94760; 94761; 99285; C9803; J1956; U0003; U0005

== ENCOUNTER → 2022-05-27 13:51 | Outpatient (CLI) | payer MEDICARE, MEDICAID, SELFPAY ==
--- NOTE | 2022-05-27 14:15 | US_ITS ---
FINAL REPORT CLINICAL HISTORY: hx nodule COMPARISON: 09/24/2021 FINDINGS: Sonographic images of the right neck were obtained. There is a left neck lymph node measuring 1.2 cm with a clearly evident fatty yosef. The parotid is unremarkable. The submandibular gland is unremarkable. There is an hypoechoic ovoid nodule superior to the right lobe of the thyroid measuring 1.5 x 0.9 cm which appears stable. No fatty hilum is seen. There is increased vascularity with this node on color flow. IMPRESSION: 1.5 cm hypoechoic nodule superior to the right lobe of the thyroid. Although this nodule is stable, it does not clearly represent a lymph node and it has increased vascularity. This nodule has been previously biopsy. Please see biopsy results. Reviewed, Interpreted and Dictated by Dell Dobson MD Transcribed by Josefa Carey Authenticated and [facility]
== END ==
PROVIDERS: PCP Family Medicine; Visit Provider Otolaryngology
DX: E04.1 Nontoxic single thyroid nodule (principal)
CPT/HCPCS: 76536

== ENCOUNTER → 2022-12-17 09:39 | Outpatient (CLI) | payer MEDICARE, MEDICAID, SELFPAY ==
--- NOTE | 2022-12-17 09:43 | US_ITS ---
FINAL REPORT TECHNIQUE: Real-time grayscale and color ultrasound of the thyroid was performed. CLINICAL HISTORY: Thryroid nodule COMPARISON: 05/27/2022 FINDINGS: The thyroid gland is atrophic measuring 36 mm on the right and 32 mm on the left. The isthmus measures 3 mm. There is redemonstration of a solid nodule in the superior right thyroid measuring 16 x 10 x 11 mm. This previously measured 15 x 9 x 2 mm and is not significantly changed. This could be an exophytic thyroid nodule, although parathyroid adenoma is also in the differential. There is a 4 mm thyroid cyst on the right and a 6 mm thyroid cyst on the left. IMPRESSION: Stable appearance of a solid TR 3 nodule adjacent to the right thyroid favored to be thyroid in origin. Twelve month follow-up recommended. Reviewed, Interpreted and Dictated by Dalton Byrd MD Transcribed by Anastasiia Argueta Authenticated and [facility]
[2022-12-17 11:09] LABS: Basophils % 0.4 % (0.1-2.0); Eosinophils # 0.1 K/mm3 (0.0-0.4); Eosinophils % 1.3 % (0.1-12.0); Hematocrit 48.6 % (37.0-47.0); Hemoglobin 15.1 g/dL (12.2-16.2); Lymphocytes # 2.6 K/mm3 (0.7-4.5); Lymphocytes % 23.3 % (10-50); Mean Corpuscular HGB Conc 31.2 g/dL (31.8-35.4); Mean Corpuscular Hemoglobin 29.4 pg (27.0-31.2); Mean Corpuscular Volume 94.3 fl (81-99); Mean Platelet Volume 8.8 fl (7.4-10.4); Monocytes # 0.4 K/mm3 (0.1-1.0); Neutrophils # 7.8 K/mm3 (1.8-7.8); Platelet Count 218 K/mm3 (142-424); Red Blood Count 5.15 M/mm3 (4.20-5.40); Red Cell Distribution Width 14.1 % (11.5-17.5); White Blood Count 10.9 K/mm3 (4.8-10.8)
[2022-12-17 11:30] LABS: Chloride 100 mmol/L (98-107); Potassium 5.1 mmoL/L (3.5-5.1); Sodium 138 mmol/L (136-145)
[2022-12-17 11:32] LABS: Bilirubin,Unconjugated 0.6 mg/dL (0.0-1.1); Blood Urea Nitrogen 16 mg/dl (7-17); Estimated Glomerular Filt Rate 73 ml/min (>60); GFR (African American) 89 ML/MIN (>60)
[2022-12-17 11:33] LABS: Alanine Aminotransferase 19 U/L (12-78); Albumin Level 3.7 g/dl (3.5-5.0); Alkaline Phosphatase 132 U/L (38-126); Anion Gap 8.1 mEq/L (5-15); Aspartate Amino Transferase 20 U/L (14-36); Bilirubin,Indirect 0.6 mg/dL (0.0-0.9); Bilirubin,Total 0.6 mg/dl (0.2-1.3); Calcium 9.1 mg/dl (8.4-10.2); Carbon Dioxide 35 mmol/L (22.0-30.0); Cholesterol 164 mg/dl (140-200); Glucose 106 mg/dl (74-100); Magnesium 2.3 mg/dl (1.6-2.3); Total Protein,Serum 6.3 g/dl (6.3-8.2); Triglycerides 108 mg/dl (30-150); VLDL Cholesterol 22 mg/dL (0-40)
[2022-12-17 11:34] LABS: Chol/HDL Ratio 3.1 (1-3.5); HDL Cholesterol 53 mg/dl (40-60)
[2022-12-17 11:44] LABS: Direct LDL Cholesterol 84.58 mg/dL (100-129)
[2022-12-17 12:03] LABS: Thyroid Stimulating Hormone 3.48 uIU/mL (0.465-4.68)
[2022-12-17 15:21] LABS: Free T4 (Free Thyroxine) 0.88 ng/dl (0.78-2.19)
== END ==
LOC: RAD 09:40
PROVIDERS: PCP Nurse Practitioner; Visit Provider Otolaryngology
DX: K21.9 Gastro-esophageal reflux disease without esophagitis (principal); R13.10 Dysphagia, unspecified; E78.2 Mixed hyperlipidemia; E04.1 Nontoxic single thyroid nodule; I20.8 Other forms of angina pectoris
CPT/HCPCS: 36415; 76536; 80048; 80061; 80076; 83735; 84439; 84443; 85025

== ENCOUNTER → 2022-12-18 06:12 | Outpatient (CLI) | payer MEDICARE, MEDICAID, SELFPAY ==
[2022-12-18 07:00] VITALS: BP 95/42; PULSE 58; RESP 18; O2SAT 96
[2022-12-18 07:15] VITALS: BMI 38.2
[2022-12-18 10:28] LABS: POC Glucose,Bedside 241 (70-110)
== END ==
PROVIDERS: PCP Family Medicine; Visit Provider Nurse Practitioner
DX: I20.8 Other forms of angina pectoris (principal); E11.9 Type 2 diabetes mellitus without complications; Z79.4 Long term (current) use of insulin
CPT/HCPCS: 75574; 82962; Q9967

== ENCOUNTER → 2023-02-19 12:31 | Outpatient (CLI) | payer MEDICARE, MEDICAID, SELFPAY ==
[2023-02-22 20:02] LABS: Calprotectin, Fecal <5 ug/g (0-120); Fats, Neutral Increased (.); Fats, Total Increased (.)
[2023-02-25 18:19] LABS: Pancreatic Elastase, Fecal 86 (>200)
== END ==
PROVIDERS: PCP Family Medicine; Visit Provider Nurse Practitioner
DX: K59.00 Constipation, unspecified (principal); R19.7 Diarrhea, unspecified
CPT/HCPCS: 82656; 82705; 83993; 87205

== ENCOUNTER 2023-05-27 10:10 | Day surgery (SDC) | payer MEDICARE, MEDICAID, SELFPAY ==
[2023-05-14 14:27] VITALS: BMI 38.2
[2023-05-27 10:30] VITALS: BP 119/62; PULSE 58; RESP 18; TEMP 36.2; O2SAT 97
--- NOTE | 2023-05-27 10:49 | P.PNANES_ITS ---
[facility] Disclaimer: The information contained in this section may have been updated after the patient was seen, as this information can be updated by other users. Medical History Abnormal ankle brachial index (PRISCILLA) Abnormal computed tomography angiography (CTA) Arthritis Chest pain Claudication COPD (chronic obstructive pulmonary disease) Diabetes Dysphagia Dyspnea GERD (gastroesophageal reflux disease) History of cataract HLD (hyperlipidemia) ANDI (obstructive sleep apnea) PAD (peripheral artery disease) Thyroid nodule Tobacco dependence syndrome Typical angina Surgical History History of hysterectomy History of knee surgery History of throat surgery History of tonsillectomy Family History Other Family history of Churg-[place] syndrome Family history of cancer Family history of diabetes mellitus type I Family history of heart disease Social History Smoking Status: Current every day smoker tobacco type: cigarettes packs per day: 1 second hand exposure: Yes alcohol intake: never counseling provided: none substance use type: marijuana current occupational status: disabled Travel in the last 8 weeks: None household members: family housing: apartment current occupational exposures/hazards: No caffeine: Yes [facility] Anesthesia Checklist Patient Identification Patient Identification: Arm Band and Verbal (Name & ) Structural Data Admitted From: Home Planned Operative Procedure/s: EGD/Colonoscopy Consent for Planned Operative Procedure(s) Verified: Yes NPO Status Verified Time NPO: 00:00 Additional verifications Anesthesia Reactions: Yes (PT STATED QUITS BREATHING) Hx Blood Transfusions: No Blood Transfusion Reaction: No Airway Assessment Mallampati Score:: Class IV C-Spine Mobility Assessed: Yes TMJ Mobility Assessed: Yes Dentition: Poor Dentition Neurological Assessment Level of Consciousness: Awake Hx Seizures: No Numbness or tingling in extremities: No Anesthesia Plan Anesthesia Risk discussed: Yes Anesthesia Plan: Verified ASA Class: III Anesthesia Type: MAC
[2023-05-27 10:54] LABS: POC Glucose,Bedside 67 (70-110)
[2023-05-27 10:58] VITALS: O2SAT 97
[2023-05-27 11:33] VITALS: BP 99/48; PULSE 74; RESP 18; TEMP 36.4; O2SAT 96
--- NOTE | 2023-05-27 11:33 | HMH.SCOPE ---
Procedure: Date: 05/27/23 Patient Date of :: 1960 Procedure Performed:: EGD with dilation Indications:: Dysphagia Performing Provider:: Clay Skaggs MD Referring Provider:: Aracelis Skaggs APRN Sedation:: Propofol Procedure:: The gastroscope was gently passed through the incisoral orifice into the oral cavity and under direct visualization the esophagus was intubated. The endoscope was passed down the esophagus, through the stomach, and into the duodenum. Color, texture, mucosa, and anatomy of the esophagus, stomach, and duodenum were carefully examined with the scope. Findings:: Oropharynx: normal, thick tongue with narrowed posterior pharynx Esophagus: normal, dilated with 58F bougie dilator EG Junction: intact at 40 cm Cardia: normal Fundus: normal Body: normal Antrum: normal Duodenal bulb: normal Duodenum (second and third portion): normal Impression: Dysphagia treated with bougie dilation Consider ENT evaluation for tight narrowed posterior pharynx Recommendations:: Repeat dilation in about THREE years or so as clinically indicated. Complications:: None Estimated blood obtained (mL): 0 Colonoscopy Component Colonoscopy Component Was a colonoscopy performed during today's procedure?: No
--- NOTE | 2023-05-27 11:37 | HMH.SCOPE ---
Procedure: Date: 05/27/23 Patient Date of :: 1960 Procedure Performed:: Colonoscopy with polypectomy Indications:: Colon cancer screening Performing Provider:: Clay Skaggs MD Referring Provider:: Aracelis Skaggs APRN Sedation:: Propofol Procedure:: After placing the patient in the left lateral decubitus position, the colonoscopy was gently inserted into the rectum and under direct visualization advanced to the cecum which was identified by transillumination in the right lower quadrant, identification of the ileocecal valve, appendiceal orifice, and cecal strap. Color, texture, mucosa, and anatomy of the colon were carefully examined with the scope. Findings:: Anal canal: normal Rectum: normal with fecal residuals Sigmoid colon: normal, poor visualization due to stool Descending colon: 1 cm polyp, snared and removed Splenic flexure: normal Transverse colon: normal, large amount of fecal material Hepatic flexure: normal Ascending colon: Visualization impaired due to large amount of fecal material Cecum: Large amount of residual fecal material Terminal ileum: not visualized Impression: Descending colon polyp Compromised visualization due to poor prep quality Specimens:: Polyp Recommendations:: Follow up examination in about THREE years or so, sooner if clinically indicated. Two day prep required before procedure. Complications:: None Estimated blood obtained (mL): 0 Colonoscopy Component Colonoscopy Component Was a colonoscopy performed during today's procedure?: Yes Recommended follow up colonoscopy of at least 10 years?: No If no, follow up colonoscopy recommended in ___ years?: Three Reason for not recommending >/= 10 yr follow-up interval?: Polyp and poor prep
--- NOTE | 2023-05-27 11:41 | SUR.PHASEII ---
1133: BG 113
[2023-05-27 11:43] VITALS: BP 95/44; PULSE 73; RESP 20; O2SAT 95
[2023-05-27 11:52] LABS: POC Glucose,Bedside 113 (70-110)
[2023-05-27 11:53] VITALS: BP 103/57; PULSE 76; RESP 18; O2SAT 96
[2023-05-27 12:03] VITALS: BP 125/70; PULSE 70; RESP 18; O2SAT 96
== END 2023-05-27 12:15 | disposition home or self-care (01) ==
PROVIDERS: PCP Family Medicine; Visit Provider Internal Medicine Gastroenterology
PROC: 0DJ08ZZ Inspection of Upper Intestinal Tract, Via Natural or Artificial Opening Endoscopic (ICD-10-PCS; CPT 43235; principal; 2023-05-27 11:30)
DX: R13.10 Dysphagia, unspecified (principal); Z12.11 Encounter for screening for malignant neoplasm of colon; D12.4 Benign neoplasm of descending colon; K14.8 Other diseases of tongue; E11.9 Type 2 diabetes mellitus without complications
CPT/HCPCS: 43248; 45385; 82962; 88305; J2704

== ENCOUNTER → 2023-06-22 06:40 | Outpatient (CLI) | payer MEDICARE, MEDICAID, SELFPAY ==
--- NOTE | 2023-06-22 07:26 | CT_ITS ---
FINAL REPORT TECHNIQUE: Axial images were obtained from the lung apex to the mid abdomen by computed tomography. This study was performed with techniques to keep radiation doses as low as reasonably achievable (ALARA). Individualized dose reduction techniques using automated exposure control or adjustment of mA and/or kV according to the patient's size were employed. CLINICAL HISTORY: H/O TOBACCO USE smoker, 1 ppd x 50 years FINDINGS: CHEST CT LOW DOSE CTDI vol (mGy): 2.90 DLP (mGy-cm): 96.38 There is no axillary adenopathy. There is no hilar or mediastinal adenopathy. The heart is normal in size. There is no pericardial or pleural effusion. Lung window images demonstrate no suspicious infiltrate or nodule. There is linear density in both lung bases consistent with scar or atelectasis. Limited images of the upper abdomen reveal a 2.2 cm left adrenal nodule which is indeterminate. IMPRESSION: Left adrenal nodule. Lung RADS category 1S. Recommend 12 month follow-up low-dose chest CT. Reviewed, Interpreted and Dictated by Dell Dobson MD Transcribed by Josefa Carey Authenticated and [facility]
== END ==
PROVIDERS: PCP Family Medicine; Visit Provider Family Medicine
DX: Z87.891 Personal history of nicotine dependence (principal); Z12.2 Encounter for screening for malignant neoplasm of respiratory organs
CPT/HCPCS: 71271

== ENCOUNTER 2023-08-01 16:10 | Emergency (ER) | payer MEDICARE, MEDICAID, SELFPAY ==
[2023-08-01 16:10] VITALS: BP 142/53; PULSE 68; RESP 16; TEMP 36.8; O2SAT 96; BMI 39.9
--- NOTE | 2023-08-01 16:10 | PC.NURSE ---
Attempted to place c-collar per Dr. Sandoval orders. Pt refused c-collar. Refusal signed.
--- NOTE | 2023-08-01 16:11 | PC.NURSE ---
Dr. Sandoval at [facility]
[2023-08-01 16:14] VITALS: BP 142/53; PULSE 66; O2SAT 98
--- NOTE | 2023-08-01 16:15 | XR_ITS ---
PROCEDURE INFORMATION: Exam: XR Chest Exam date and time: 08/01/2023 4:19 PM Age: 62 years old Clinical indication: Other: Syncope TECHNIQUE: Imaging protocol: Radiologic exam of the chest. Views: 1 view. COMPARISON: CT LUNG SCREENING 06/22/2023 7:26 AM FINDINGS: Lungs: No evidence of acute airspace consolidation. No pulmonary edema. Pleural spaces: No significant pleural effusion. No pneumothorax. Heart/Mediastinum: Cardiomediastinal silouhette is within normal limits. Bones/joints: No evidence of acute osseous abnormality. IMPRESSION: No acute findings.
--- NOTE | 2023-08-01 16:15 | CT_ITS ---
PROCEDURE INFORMATION: Exam: CT Head Without Contrast Exam date and time: 08/01/2023 4:29 PM Age: 62 years old Clinical indication: Injury or trauma; Fall; Blunt trauma (contusions or hematomas); Additional info: Syncope, forehead laceration TECHNIQUE: Imaging protocol: Computed tomography of the head without contrast. Radiation optimization: All CT scans at this facility use at least one of these dose optimization techniques: automated exposure control; mA and/or kV adjustment per patient size (includes targeted exams where dose is matched to clinical indication); or iterative reconstruction. COMPARISON: [facility] CT head/brain wo con 09/16/2018 6:32 AM FINDINGS: Brain: There is no evidence of acute intracranial hemorrhage, extra-axial collection or locoregional mass effect. There are scattered hypodensities in the periventricular and subcortical white matter. The appearance is nonspecific, but most likely represents chronic small vessel disease in a person of this age Cerebral ventricles: The ventricles, sulci and cisterns are normal in size and configuration for patient's age. No hydrocephalus or midline structure shift Pituitary gland and sella: Sellar/parasellar structures, craniocervical junction and orbits are unremarkable Paranasal sinuses: Mucous retention cyst versus polyp in the left maxillary sinus. Mastoid air cells: Visualized mastoid air cells are well aerated. Bones/joints: No calvarial fracture Soft tissues: Small scalp hematoma/ laceration in the forehead. IMPRESSION: 1. No acute intracranial abnormality. No calvarial fracture. 2. Small scalp hematoma/ laceration in the forehead.
--- NOTE | 2023-08-01 16:15 | CT_ITS ---
PROCEDURE INFORMATION: Exam: CT Cervical Spine Without Contrast Exam date and time: 08/01/2023 4:31 PM Age: 62 years old Clinical indication: Injury or trauma; Fall; Blunt trauma; Additional info: Syncope, fall TECHNIQUE: Imaging protocol: Computed tomography of the cervical spine without contrast. Radiation optimization: All CT scans at this facility use at least one of these dose optimization techniques: automated exposure control; mA and/or kV adjustment per patient size (includes targeted exams where dose is matched to clinical indication); or iterative reconstruction. COMPARISON: [facility] CT cervical spine wo con 07/01/2018 2:31 PM FINDINGS: Bones/joints: Vertebral alignment is maintained. There is preservation of vertebral body heights. Facet joints are aligned. Odontoid process is intact. Atlantoaxial interval maintained. No acute fracture. Uncovertebral and facet arthropathy result in varying degrees of neural foraminal narrowing at multiple levels. Lungs: Lung apices are normal. Soft tissues: Prevertebral and paravertebral soft tissues are maintained Other findings: Motion artifact does moderately limit the sensitivity of this examination. IMPRESSION: 1. Motion degraded exam 2. No acute fracture. No traumatic subluxation.
--- NOTE | 2023-08-01 16:15 | ECG_ITS ---
APPROVED REPORT Exam: Resting ECG HR:67 bpm ECG Measurements Heart Rate 67 AXES NV 174 P 65 QRSd 106 QRS 81 QT 409 T 83 QTc 424 Conclusion SINUS RHYTHM NORMAL ECG UNCONFIRMED REPORT Electronically signed by : Matthew Belcher MD 08/02/2023 17:29:32
--- NOTE | 2023-08-01 16:17 | XR_ITS ---
PROCEDURE INFORMATION: Exam: XR Left Knee Exam date and time: 08/01/2023 4:19 PM Age: 62 years old Clinical indication: Injury or trauma; Fall; Blunt trauma; Left; Prior surgery; Surgery date: 6+ months; Surgery type: Knee repair TECHNIQUE: Imaging protocol: Radiologic exam of the left knee. Views: 1 or 2 views. COMPARISON: CR [id number] XR knee LT 3V 07/01/2018 2:39 PM FINDINGS: Bones/joints: No evidence of acute fracture or malalignment. No significant knee joint effusion. Tricompartmental degenerative osteoarthrosis, more pronounced in the medial and patellofemoral compartments when compared with most recent available prior left knee radiograph performed on 07/01/2018. Patellar enthesopathy. Soft tissues: Unremarkable. IMPRESSION: 1. No evidence of acute osseous abnormality in the left knee. 2. Tricompartmental degenerative osteoarthrosis, more pronounced in the medial and patellofemoral compartments when compared with most recent available prior left knee radiograph performed on 07/01/2018. 3. Patellar enthesopathy.
--- NOTE | 2023-08-01 16:17 | XR_ITS ---
PROCEDURE INFORMATION: Exam: XR Right Knee Exam date and time: 08/01/2023 4:19 PM Age: 62 years old Clinical indication: Injury or trauma; Fall; Blunt trauma; Right; Prior surgery; Surgery date: 6+ months; Surgery type: Knee repair with hardware. TECHNIQUE: Imaging protocol: Radiologic exam of the right knee. Views: 1 or 2 views. COMPARISON: CR XR KNEE RT 3V 07/14/2019 11:59 PM FINDINGS: Tubes, catheters and devices: Stable appearance of 2 cannulated fixation screws in the proximal tibia. Hardware is intact with no evidence of loosening. Bones/joints: No evidence of acute fracture or malalignment. No significant knee joint effusion. Tricompartmental degenerative osteoarthrosis, not significantly progressed from 07/15/2019 radiograph. Patellar enthesopathy. Soft tissues: Unremarkable. IMPRESSION: 1. No evidence of acute osseous abnormality in the right knee. 2. Tricompartmental degenerative osteoarthrosis, not significantly progressed from 07/15/2019 radiograph. 3. Patellar enthesopathy.
--- NOTE | 2023-08-01 16:17 | ED_ITS ---
Discharge Plan Disposition Patient Disposition: Home, Self-Care Chief Complaint: Fall Prescriptions Prescriptions: No Action (DME) pen needle, diabetic [Novofine 32] 32 gauge x 1/4 needle See Rx Instructions .ROUTE .MEDSUPPLY Qty: 50 Rx Instructions: As directed Orion Ellipta 100-62.5-25 mcg blister with device 1 inh inhalation DAILY metoclopramide HCl 5 mg tablet 5 mg PO DAILY fluticasone propionate 50 mcg/actuation spray,suspension 1 spray intranasal DAILY oxycodone 10 mg tablet 10 mg PO PC metoprolol succinate [Toprol XL] 25 mg tablet extended release 24 hr 25 mg PO DAILY Qty: 30 5RF hydrocodone-homatropine 5-1.5 mg tablet 1 tab PO Q6H PRN losartan 25 mg tablet 25 mg PO DAILY citalopram 40 mg tablet 40 mg PO DAILY insulin aspart U-100 [Novolog FlexPen U-100 Insulin] 100 unit/mL (3 mL) insulin pen 30 units SQ AC Tresiba FlexTouch U-200 200 unit/mL (3 mL) insulin pen 152 unit SQ DAILY famotidine 20 mg tablet See Rx Instructions .ROUTE .COMPLEX Qty: 180 1RF Rx Instructions: TAKE 1 TABLET BY MOUTH TWICE DAILY FOR GERD Creon 36,000-114,000- 180,000 unit capsule,delayed release(DR/EC) 1 cap PO QID Qty: 120 2RF Rx Instructions: administer with meals and/or snacks atorvastatin 40 mg tablet See Rx Instructions .ROUTE .COMPLEX Qty: 90 6RF Dose Instruction: TAKE 1 TABLET BY MOUTH DAILY FOR CHOLESTEROL Rx Instructions: TAKE 1 TABLET BY MOUTH DAILY FOR CHOLESTEROL magnesium 200 MG tablet 400 mg PO DAILY gabapentin 600 MG tablet 600 mg PO HS potassium 20 mg Tablet,Chewable 20 mg PO BID aspirin 81 MG tablet,delayed release (DR/EC) 81 mg PO DAILY montelukast 10 MG tablet 10 mg PO HS albuterol sulfate 18 GM HFA aerosol inhaler 1 - 2 puffs IH Q4HP PRN (Reason: Shortness Of Breath Or Wheezing) Referrals Follow up/Referrals: Matthew Ramesh MD [Primary Care Provider] - See instructions Activity Restrictions/Add. Instructions Additional Instructions/Restrictions: At this time it was felt you are safe to be discharged home. If new or worsening symptoms please do not hesitate to return the emergency department. Please continue to follow-up for your passing out related to your coughing on an outpatient basis as discussed. Please see your family doctor in 10 days for suture removal, if signs of infection such as pus draining from the wound or spreading redness please present to your family doctor or to the emergency department for evaluation. Clinical Impressions Clinical Impression: Syncope, vasovagal, Forehead laceration, Skin tear of left hand without complication Discharge ED Provider: Zhou Sandoval General Adult HPI General Chief complaint: Fall Stated complaint: fall Time Seen by Provider: 08/01/23 16:15 History of Present Illness HPI narrative: Patient is a 62-year-old female with past medical history of chronic coughing episodes of undetermined etiology with resultant syncope who presents emergency department for evaluation of syncope. Patient had a coughing episode consistent with her baseline coughing episodes prior to arrival resulting in syncope falling forward striking her head. Patient has a laceration over her forehead, bilateral knee pain, skin tear on her left dorsal hand causing her to present here for continued evaluation. Related Data Home Medications Medication Instructions Recorded Confirmed aspirin 81 mg tablet,delayed 81 mg PO DAILY HEART HEALTH 09/02/17 05/24/23 release montelukast 10 mg tablet 10 mg PO HS Asthma 09/02/17 05/24/23 albuterol sulfate 90 mcg/actuation 1 - 2 puffs inhalation Q4HP PRN 09/16/18 05/24/23 aerosol inhaler Shortness Of Breath Or Wheezing magnesium 200 mg tablet 400 mg PO DAILY Supplement 06/16/21 05/24/23 citalopram 40 mg tablet 40 mg PO DAILY mood 10/28/21 05/24/23 insulin aspart U-100 100 unit/mL 30 units SQ AC Diabetes 01/13/22 05/24/23 (3 mL) subcutaneous pen (Novolog FlexPen U-100 Insulin aspart) insulin degludec 200 unit/mL (3 152 unit SQ DAILY Diabetes 01/13/22 05/24/23 mL) subcutaneous pen (Tresiba FlexTouch U-200 insulin) gabapentin 600 mg tablet 600 mg PO HS Pain 01/22/22 05/24/23 fluticasone fur. 100 mcg-umeclid 1 inh inhalation DAILY COPD 06/16/22 05/24/23 62.5 mcg-vilant 25 mcg inhalat.powder (Trelegy Ellipta) pen needle, diabetic 32 gauge x #50 ea 06/16/22 05/24/2307/15 (Novofine 32) potassium 20 mg chewable tablet 20 mg PO BID Supplement 12/18/22 05/24/23 fluticasone propionate 50 1 spray intranasal DAILY 12/22/22 05/24/23 mcg/actuation nasal spray,suspension metoclopramide HCl 5 mg tablet 5 mg PO DAILY stomach 12/22/22 05/24/23 oxycodone 10 mg tablet 10 mg PO PC Pain 12/22/22 05/24/23 hydrocodone-homatropine 5 mg-1.5 1 tab PO Q6H PRN 06/10/23 06/10/23 mg tablet losartan 25 mg tablet 25 mg PO DAILY 06/10/23 06/10/23 Previous Rx's Medication Instructions Recorded famotidine 20 mg tablet See Rx Instructions .Route 12/22/22 .COMPLEX gerd #180 tabs metoprolol succinate 25 mg 25 mg PO DAILY #30 tabs 01/19/23 tablet,extended release 24 hr (Toprol XL) goasrv-[id number] 1 cap PO QID #120 caps 03/04/23 36,000-114,000-180,000 unit capsule,delay rel (Creon) atorvastatin 40 mg tablet See Rx Instructions .Route 03/29/23 .COMPLEX #90 tabs Allergies Allergy/AdvReac Type Severity Reaction Status Date / Time shellfish derived Allergy Severe SWELLING Verified 06/10/23 15:48 [From SHELLFISH (FOOD/DRUG)] azithromycin [From ZITHROMAX] Allergy Unknown Verified 06/10/23 15:48 doxycycline [DOXYCYCLINE] Allergy Unknown Verified 06/10/23 15:48 ibuprofen [From MOTRIN] Allergy Unknown Verified 06/10/23 15:48 terbutaline [TERBUTALINE] Allergy Unknown Verified 06/10/23 15:48 [facility] Disclaimer: The information contained in this section may have been updated after the patient was seen, as this information can be updated by other users. Medical History Abnormal ankle brachial index (PRISCILLA) Abnormal computed tomography angiography (CTA) Arthritis Chest pain Claudication COPD (chronic obstructive pulmonary disease) Diabetes Dysphagia Dyspnea GERD (gastroesophageal reflux disease) History of cataract HLD (hyperlipidemia) ANDI (obstructive sleep apnea) PAD (peripheral artery disease) Thyroid nodule Tobacco dependence syndrome Typical angina Surgical History History of hysterectomy History of knee surgery History of throat surgery History of tonsillectomy Family History Other Family history of Churg-Hi syndrome Family history of cancer Family history of diabetes mellitus type I Family history of heart disease Social History Smoking Status: Current every day smoker tobacco type: cigarettes packs per da y: 1 second hand exposure: Yes alcohol intake: never counseling provided: none substance use type: marijuana current occupational status: disabled Travel in the last 8 weeks: None household members: family housing: apartment current occupational exposures/hazards: No caffeine: Yes ROS Obtained: Yes Systems reviewed as appropriate & no additional complaints except as documented Physical Exam General General appearance: alert, in no apparent distress and anxious Head Head exam: normocephalic and other (5 cm curvilinear laceration over the mid forehead that is hemostatic.) Eye Eye exam: Present PERRL and EOMI ENT ENT exam: Present mucous membranes moist Neck Neck exam: Present normal inspection and tenderness (Midline and bilateral pa raspinal cervical spine) Chest Chest inspection: Present normal inspection and symmetric chest wall rise Respiratory Respiratory exam: Present normal lung sounds bilaterally; Absent respiratory distress Cardiovascular Cardiovascular exam: Present regular rate and normal rhythm Abdominal Exam Abdominal exam: Present soft Extremities Exam Extremities exam: Present other (Tenderness bilateral knees, extensor mechanism intact bilaterally, skin tear left dorsal hand that is hemostatic. No significant tenderness over the wrist or digits bilaterally.) Neurological Exam Neurological exam: Present alert Psychiatric Psychiatric exam: Present normal affect Skin Skin exam: Present warm and dry Medical Decision Making Paul Inquiry Pt receiving controlled substance: No Vital Signs: 08/01/23 16:10 08/01/23 16:14 Temperature 98.3 F Temperature Source Oral Pulse Rate 66 Pulse Rate [Radial] 68 Respiratory Rate 16 Blood Pressure 142/53 H Blood Pressure [Right Arm] 142/53 H Blood Pressure Mean 82 Blood Pressure Mean [Right Arm] 82 Blood Pressure Source [Right Arm] Automatic Cuff Blood Pressure Position [Right Arm] Sitting 02 Sat by Pulse Oximetry 96 98 Oxygen Delivery Method Room Air Room Air Orders (Tests/Meds): ED MEDICATIONS Discontinued Medications Generic Name Dose Route Start Last Admin Trade Name Rylee PRN Reason Stop Dose Admin Tetanus/Reduced Diphtheria/Acell Pertussis 0.5 ml 08/01/23 16:15 08/01/23 16:44 Tet/Diphth/Pert-Adult 0.5ml Syringe IM 08/01/23 16:16 0.5 ml .ONCE ONE Administration ORDERS Category Date Time Status CT cervical spine wo con Stat Cat Scan 08/01/23 16:[address] head/brain wo con Stat Cat Scan 08/01/23 16:15 Completed CXR --portable [XR chest portable] Stat Exams 08/01/23 16:15 Completed Knee XR left 2 views [XR knee LT 2V] Stat Exams 08/01/23 16:17 Completed Knee XR right 2 views [XR knee RT 2V] Stat Exams 08/01/23 16:17 Completed EKG Request [ECG Request] Stat Y 08/01/23 16:15 Ordered ECG Data Tracing #1: Independently interpreted by me, rate is 67, rhythm is regular, axis is normal, no ST elevation in anatomical contiguous leads, QTc 424, no high degree AV block, no delta wave, no dagger Q waves. Medical Decision Narrative: In summary patient is a 62-year-old female with past medical history described above presents emergency department for evaluation of traumatic injury sustained in syncope. Patient is hemodynamically stable nontoxic-appearing upon arrival, afebrile. History strongly consistent with cough mediated vasovagal syncope. This has happened multiple times before of undetermined etiology of the coughing spells. Given this is consistent with baseline syncopal episodes workup screening for other causes of syncope will be limited to EKG and chest x-ray. Hematologic labs were considered but will be deferred. Trauma differential includes intracranial hemorrhage, cervical spine fracture, musculoskeletal strain, among others. Trauma survey will be conducted with noncontrasted CT scan of the head and cervical spine, plain film of bilateral knees. Tetanus will be updated. Trauma survey remarkable for no acute pathology, patellar enthesopathy and tricompartmental degenerative osteoarthritis bilaterally. CT head informally interpreted by me, no acute large intracranial hemorrhage with shift, formal read shows no acute pathology. C-spine no acute pathology. Chest x-ray shows no acute pathology. Patient underwent primary repair of her forehead laceration with success. Ambulatory at bedside. Given this patient is appropriate for discharge at this time. Procedure: Procedure performed was laceration repair. Procedure performed by Zhou Sandoval. Using 4-0 nonabsorbable Prolene sutures the 5 cm frontal forehead laceration was repaired using 6 simple interrupted sutures. This was aided by anesthesia with 1% lidocaine with epinephrine, 6 cc. Wound was cleaned with normal saline. Wound was well-approximated. Patient tolerated procedure well. There were no immediate complications. Critical Care Critical Care Time Critical Care Time: No
--- NOTE | 2023-08-01 16:22 | PC.NURSE ---
CLEANED PT HEAD LEAD WITH STERILE WATER AND TRIED TO REMOVE DRY BLOOD AROUND THE AREA AND OUT OF HAIR
--- NOTE | 2023-08-01 16:22 | PC.NURSE ---
PT GONE TO CT VIA STRETCHER
[2023-08-01] MEDS: TET/DIPHTH/PERT-ADULT 0.5ML SYRINGE 0.5 ML IM (16:44)
--- NOTE | 2023-08-01 17:30 | PC.NURSE ---
PT AMBULATED IN ROOM 5-6 STEPS STATES SHE DOESN'T WALK VERY FAR AND HAS A WHEELCHAIR AT HOME, PT IS NOW SETTING IN WHEELCHAIR WITH DAUGHTERS AND SON IN LAW AT BS
--- NOTE | 2023-08-01 17:31 | PC.NURSE ---
AT BS SUTURING PT HEAD LAD I WAS AT BS ASSISTING
[2023-08-01 17:35] VITALS: BP 142/53; PULSE 66; RESP 16; TEMP 36.8; O2SAT 98
== END 2023-08-01 17:36 | disposition home or self-care (01) ==
PROVIDERS: Emergency Provider Emergency Medicine; PCP Family Medicine
DX: R55 Syncope and collapse (principal); S01.81XA Laceration without foreign body of other part of head, initial encounter; M25.561 Pain in right knee; M25.562 Pain in left knee; J44.9 Chronic obstructive pulmonary disease, unspecified; E11.51 Type 2 diabetes mellitus with diabetic peripheral angiopathy without gangrene; K21.9 Gastro-esophageal reflux disease without esophagitis; E78.5 Hyperlipidemia, unspecified; G47.33 Obstructive sleep apnea (adult) (pediatric); E04.1 Nontoxic single thyroid nodule; I20.9 Angina pectoris, unspecified; F17.210 Nicotine dependence, cigarettes, uncomplicated; W19.XXXA Unspecified fall, initial encounter
CPT/HCPCS: 12013; 70450; 71045; 72125; 73560; 90471; 90715; 93005; 99285

== ENCOUNTER 2023-12-23 12:43 | Outpatient (CLI) | payer MEDICARE, MEDICAID, SELFPAY ==
--- NOTE | 2023-12-23 12:44 | US_ITS ---
FINAL REPORT CLINICAL HISTORY: thyroid nodule COMPARISON: 12/17/2022 FINDINGS: Sonographic images of the thyroid gland were obtained. The right thyroid lobe measures 4.0 cm. in length. The left thyroid lobe measures 3.5 cm. in length. The thyroid isthmus measures 0.3 cm. The echogenicity is normal. There is a solid mass in the upper pole of the right thyroid measuring 18 x 12 x 12 mm, slightly larger compared to the previous study. This is solid, isoechoic, TR 3. 6 mm cystic TR 1 nodule on the left previously measured 6 mm. IMPRESSION: Right lobe TR 3 nodule, slightly larger than previous. Recommend continued follow-up in 12 months per TI-RADS criteria. Reviewed, Interpreted and Dictated by Juan Jose Mora III, MD Transcribed by Anastasiia Argueta Authenticated and [facility]
== END 2023-12-23 23:59 | disposition home or self-care (01) ==
LOC: RAD 12:44
PROVIDERS: PCP Family Medicine; Visit Provider Nurse Practitioner
DX: E04.1 Nontoxic single thyroid nodule (principal)
CPT/HCPCS: 76536

== ENCOUNTER 2024-06-21 09:44 | Outpatient (CLI) | payer MEDICARE, MEDICAID, SELFPAY ==
--- NOTE | 2024-06-21 09:45 | US_ITS ---
FINAL REPORT CLINICAL HISTORY: history of thyroid nodules COMPARISON: 12/23/2023 FINDINGS: Sonographic images of the thyroid gland were obtained. The right thyroid lobe measures 25 mm. in length. The left thyroid lobe measures 32 mm. in length. The thyroid isthmus measures 3 mm. The echogenicity is normal. There is a solid-appearing mass in the right thyroid lobe measuring 18 x 10 x 12 mm, which is stable compared to the prior exam. This is solid, isoechoic, TI-RADS 3. There is a TI-RADS 1 cystic nodule in the left thyroid lobe measuring 4 x 4 x 4 mm, which previously measured 6 mm. IMPRESSION: Stable dominant right thyroid lobe TI-RADS 3 mass. Recommend additional follow-up in 6 to 12 months per TI-RADS criteria. Reviewed, Interpreted and Dictated by Juan Jose Mora III, MD Transcribed by Bridgett Gutierrez Authenticated and [facility]
== END 2024-06-21 23:59 | disposition home or self-care (01) ==
LOC: RAD 09:45
PROVIDERS: PCP Family Medicine; Visit Provider Nurse Practitioner
DX: E04.1 Nontoxic single thyroid nodule (principal)
CPT/HCPCS: 76536

== ENCOUNTER 2024-08-07 09:24 | Outpatient (CLI) | payer MEDICARE, MEDICAID, SELFPAY ==
--- NOTE | 2024-08-07 09:27 | CA_ITS ---
APPROVED REPORT EXAM: Comprehensive 2D, Doppler, and color-flow Echocardiogram Vp Strategy: Argelia Bentley RVT Ht: 5 ft 5 in Wt: 242lbs BSA: 2.15 BP: 145/76 mmHg Indications: DYSPENA,COPD,CP,ANDI,DM,HTN,HLD 2D Dimensions LA Volume 28.90 mL LA Volume Index 13.44 mL/m2 (M/F) 16-34 M-Mode Dimensions RVDd 3.50 cm (0.9-2.6) LA Diam 3.60 cm (1.9-4.0) LVDd 5.11 cm (3.5-5.7) LVDs 3.80 cm (3.5-5.7) IVSd 1.44 cm (0.6-1.1) PWd 0.70 cm (0.6-1.1) EF (Teich) 50.20% FS 25.60% EDV (Teich) 124.40 mL TAPSE 2.47 (<1.7) ESV (Teich) 62.00 mL LV Diastology E Decel Time 257 (160-240 msec) E/A Ratio 1.0 Aortic Valve LOUISE Index 0.98 cm2/m2 AoV Peak Siddharth. 127.0 (50-130 cm/s) AO Peak GR. 6.40 mmHg AO Mean GR. 4.20 (<5 mmHg) AO VTI 27.9 (18-25 cm) LOUISE (VTI) 2.16 (2.5-4.5 cm2) Mitral Valve MV E Max Siddharth. 61.0 (40-130 cm/s) MV A Velocity 61.0 (40-130 cm/s) E/A Ratio 1.00 MV PHT 75.0 ms Pulmonary Valve PV Peak Velocity 69.0 (50-150 cm/s) Left Ventricle The left ventricle is normal size. The left ventricular systolic function is low normal. There is increased LV wall thickness. There is normal LV segmental wall motion. The left ventricular diastolic function is normal. LVEF is 50%. Right Ventricle The right ventricle is normal size. The right ventricular systolic function is normal. Atria The left atrium size is normal. The right atrium size is normal. The interatrial septum is not well-visualized. Aortic Valve The aortic valve is mildly thickened. There is no aortic valvular stenosis. No aortic regurgitation is present. Mitral Valve The mitral valve is normal in structure. No evidence of mitral valve stenosis. There is no mitral valve regurgitation noted. Tricuspid Valve The tricuspid valve leaflets are thin and pliable. Trace tricuspid regurgitation. There is insufficient TR jet to estimate RVSP. Pulmonic Valve The pulmonic valve is not well-visualized. Great Vessels The aortic root is normal in size. The ascending aorta is not well-visualized. IVC is normal in size and collapses >50% with inspiration. Pericardium There is no pericardial effusion. Other Information Study Quality: Technically Difficult Conclusion Technically difficult study due to poor acoustic windows. Low normal LV systolic function (LVEF 50%). No significant valvular stenosis or regurgitation. Electronically signed by : Jelena Evans MD 08/13/2024 02:47:49
== END 2024-08-07 23:59 | disposition home or self-care (01) ==
LOC: RT 09:24
PROVIDERS: PCP Family Medicine; Visit Provider Nurse Practitioner Family
DX: R06.09 Other forms of dyspnea (principal); I10 Essential (primary) hypertension; R07.9 Chest pain, unspecified
CPT/HCPCS: 93306